=== PATIENT | female | born 1940 | race Two or more races ===

== ENCOUNTER 2020-03-22 08:42 | Emergency (ER) | payer OTHER ==
[~2020-03-22] VITALS: Ht 152.4 cm; Wt 72.6 kg
[2020-03-22 08:46] VITALS: BP 165/65
== END 2020-03-22 11:29 | disposition home or self-care (01) ==
LOC: EDBD 08:42 → ER 08:42
DX: R51.9 Headache, unspecified (principal); M54.2 Cervicalgia; I10 Essential (primary) hypertension
CPT/HCPCS: 70450; 72125; 93005

== ENCOUNTER 2021-01-03 16:44 | Emergency (ER) | payer OTHER ==
[~2021-01-03] VITALS: Ht 167.6 cm; Wt 79.4 kg
[2021-01-03] MEDS ORDERED: EPINEPHrine HCL 1 MG/1 ML AMP IM ONE (19:15)
[2021-01-03] MEDS ORDERED: methylPREDNISolone SOD SUCC 125 MG/2 ML VL IV ONE (19:15)
[2021-01-04 01:04] VITALS: BP 150/53
== END 2021-01-04 01:05 | disposition home or self-care (01) ==
LOC: EDBD 16:44 → ER 16:44
DX: T78.09XA Anaphylactic reaction due to other food products, initial encounter (principal); I10 Essential (primary) hypertension; E11.9 Type 2 diabetes mellitus without complications; J45.909 Unspecified asthma, uncomplicated; I25.2 Old myocardial infarction; Z88.5 Allergy status to narcotic agent; Z98.890 Other specified postprocedural states
CPT/HCPCS: 96372; 96374; 99284; J0171; J2930

== ENCOUNTER 2021-12-02 17:19 | Emergency (ER) | payer OTHER ==
[~2021-12-02] VITALS: Ht 149.9 cm; Wt 108.9 kg
[2021-12-02] MEDS ORDERED: methylPREDNISolone SOD SUCC 125 MG/2 ML VL IV ONE (19:00)
[2021-12-02] MEDS ORDERED: cefTRIAXone 1GM/50ML D5W 50 ML IV ONE (19:00)
[2021-12-02 19:42] LABS: Basophils # (auto) 0.1 10 ^3/uL (0-0.2); Eosinophils # (auto) 0.5 10 ^3/uL (0-0.8); Eosinophils % (auto) 6.1 % (0.0-7.0); Hematocrit 39.9 % (36.0-46.0); Hemoglobin 13.2 g/dL (12.2-16.2); Lymphocytes % (auto) 26.4 % (10.0-50.0); Mean Corpuscular Hemoglobin 33.3 pg (28.0-32.0); Monocytes # (auto) 0.6 10 ^3/uL (0-1.3); Monocytes % (auto) 8.1 % (0.0-12.0); Neutrophils # (auto) 4.5 10 ^3/uL (1.6-8.6); Neutrophils % (auto) 58.4 % (37.0-80.0); Nucleated Red Blood Cells % 0.1 %; Red Blood Cells 3.95 10^6/uL (4.0-5.20); Red Cell Distribution Width 13.5 % (11.8-14.3); White Blood Cell 7.7 10^3/uL (4.4-10.8)
[2021-12-02 19:57] LABS: Albumin 3.5 g/dL (3.4-5.0); Calcium 9.3 mg/dL (8.5-10.1); Potassium 4.4 mmol/L (3.5-5.1)
[2021-12-02 19:59] LABS: BUN/Creatinine Ratio 14.3
[2021-12-02 20:03] LABS: Bilirubin, Total 0.3 mg/dL (0.2-1.0); Total Protein 7.3 g/dL (6.4-8.2)
[2021-12-02] MEDS ORDERED: METH4PAK PO (21:44)
[2021-12-02] MEDS ORDERED: cefTRIAXone SOD 1,000 MG VL IM ONE (22:00)
[2021-12-02 22:02] VITALS: BP 129/81
== END 2021-12-02 22:36 | disposition home or self-care (01) ==
LOC: ER 17:19
DX: J20.9 Acute bronchitis, unspecified (principal); I10 Essential (primary) hypertension; I25.2 Old myocardial infarction; J45.909 Unspecified asthma, uncomplicated; E11.9 Type 2 diabetes mellitus without complications; E03.9 Hypothyroidism, unspecified; Z90.49 Acquired absence of other specified parts of digestive tract; Z88.8 Allergy status to other drugs, medicaments and biological substances; Z20.822 Contact with and (suspected) exposure to COVID-19
CPT/HCPCS: 36415; 71045; 80053; 83605; 83880; 84484; 85025; 85379; 87040; 87426; 93005; 96372; 96374; 99285; J0696; J2930

== ENCOUNTER 2024-07-26 23:54 | Inpatient (IN) | payer OTHER ==
[~2024-07-26] VITALS: Ht 154.9 cm; Wt 99.0 kg
[~2024-07-26 23:54] MED LIST: METH4PAK PO
[2024-07-26 23:58] VITALS: PULSE 138; RESP 18; O2SAT 100
[2024-07-26] MEDS ORDERED: NOREPINEPHRINE 8 MG/250ML KIT 250 ML IV ONE (23:58)
[2024-07-27] VITALS (80 sets, daily range): BP systolic 113–149; BP diastolic 42–82; PULSE 53–112; RESP 13–22; TEMP 98.2–100.4; O2SAT 95–100
[2024-07-27] MEDS: NOREPINEPHRINE 8 MG/250ML KIT 250 ML IV SCH
[2024-07-27 00:24] LABS: Hemoglobin 13.2 g/dL (12.2-16.2); Mean Corpuscular Hemoglobin 33.6 pg (28.0-32.0); Mean Corpuscular Hgb Conc. 32.2 g/dL (32.0-36.0); Mean Corpuscular Volume 104.4 fL (80.0-100.0); Platelet Count (auto) 262 10^3/uL (140-450); Red Blood Cells 3.93 10^6/uL (4.0-5.20); Red Cell Distribution Width 14.1 % (11.8-14.3); White Blood Cell 7.7 10^3/uL (4.4-10.8)
[2024-07-27 00:27] LABS: Basophils % (manual) 0 (0.0-2.0); Blast Cells 0; Metamyelocytes % 0; Myelocytes % 0; Promyelocytes % 0
--- NOTE | 2024-07-27 00:27 | ED.PDOC ---
CPR-HPI HPI Comments 83-year-old female came to ER via EMS in cardio respiratory arrest. Per EMS, patient was picked up at home. Patient was going to the bathroom where she collapsed. Paramedics were called. Down time 5 minutes. Patient unresponsive with agonal breathing CPR initiated immediately. Chest compressions done, IO fluids were given, epinephrine x2, and intubated as paramedics enter the ER. Total downtime 15 minutes Chief Complaint: CPR Time Seen by MD: 00:24 Primary Care Provider: ARABELLA Spring Notes: Nurses Notes Allergies: Coded Allergies: Codeine (Verified Allergy, Severe, 03/22/20) Oxycodone (Verified Allergy, Severe, 03/22/20) Home Meds Active Scripts Methylprednisolone (Medrol Dosepak) 4 Mg Miguelito, 4 MG PO UD, #21 TAB UAD Prov:FORTINO BROWNING MD 12/02/21 Information Source: Emergency Med Personnel Mode of Arrival: EMS Timing: Minutes Duration: Down time prior EMS: (5 minutes), Total time prior hopital: (15 minutes) Onset: Witnessed Available Hx: Unknown Inital rhythm: PEA Treatment: CPR, Intubation, IV, Epinephrine Response: Sustained return of pulse Associated signs and symptoms: Other (Syncope) Past Medical History PAST MEDICAL HISTORY: Unobtainable Surgical History: Unobtainable 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: Unobtainable Family History Family History: Unobtainable Social History Smoker: Unobtainable Alcohol: Unobtainable Drugs: Unobtainable Lives In: Home Unable to Obtain due to: Medical Urgency, Intubated Physical Exam General Appearance: Other (CPR in progress) HEENT: Other (Pupils fixed and dilated) Neck: Normal Inspection Respiratory: Other (Clear breath sounds bilaterally, patient intubated) Cardiovascular: Other (CPR in progress) Breast Exam: Normal Gastrointestinal: No Organomegaly Genitalia: Normal Pelvic: Deferred Rectal: Deferred Extremities: No pedal edema Neurologic: Other (Patient intubated unresponsive.) Cerebellar Function: Unable to Test Reflexes: NOT DONE Skin: Other (Mottled) Lymphatic: NOT DONE Was a procedure done? Was a procedure done?: Yes Sedation Sedation?: No Intubation Indication: Respiratory Insufficiency Prep: Preoxygenation Pretreated with: Analgesia Medicated with: Nothing Intubation Approach: Orotracheal Intubation size: cm (8.0) Informed consent obtained: No Risks/benefits/alt described: No Differential Dx CPR Differential Diagnosis: Cardiopulmonary arrest, Dysrhythmia, Myocardial Infarction, Pulmonary Embolus, Respiratory Failure X-Ray, Labs, Meds, VS Vital Signs Date Time Temp Pulse Resp B/P (MAP) Pulse Ox O2 Delivery O2 Flow Rate FiO2 07/27/24 02:00 118/61 07/27/24 01:45 114/65 07/27/24 01:30 116/63 07/27/24 01:30 116/63 07/27/24 01:15 109/58 07/27/24 01:02 136/70 07/27/24 01:00 136/70 07/27/24 01:00 142/61 07/27/24 00:45 142/83 07/27/24 00:30 88/53 07/27/24 00:15 91/40 07/27/24 00:11 94 22 146/73 (97) 100 100 07/27/24 00:05 98.9 0 0 0/0 (0) 0 07/27/24 00:00 146/73 07/27/24 00:00 137 07/26/24 23:59 75 07/26/24 23:58 138 18 100 Mechanical Ventilator+ 100 100 Lab Test 07/27/24 02:52 07/27/24 02:35 07/27/24 02:00 07/27/24 01:47 Range/Units Troponin I High Sensitivity Pending 72 *H </=34 ng/L Blood Gas Specimen Type Arterial Blood Gas Sample Site Arterial line Blood Gas Patient Temperature 37.0 Arterial Blood Date Drawn [id number] Arterial Blood pH 7.301 L 7.350-7.450 Arterial Blood Partial Pressure CO2 38.9 32.0-45.0 mmHg Arterial Blood Partial Pressure O2 385.5 *H 83.0-108.0 mmHg Arterial Blood HCO3 18.8 L 21.0-28.0 mmol/L Arterial Blood Oxygen Saturation 99.2 H 94.0-98.0 % Arterial Blood Base Excess -7.1 L -2.0-3.0 mmol/L Arterial Blood Oxyhemoglobin 98.6 H 94.0-98.0 % Arterial Blood Carboxyhemoglobin 0.6 0.5-1.5 % Arterial Blood Methemoglobin 0.0 0.0-1.5 % Ranulfo Test N/a Blood Gas Total Hemoglobin 14.40 12.0-16.0 g/dL Blood Gas Set Respiration Rate 20.0 Blood Gas Modality Vent - ac FiO2 % 100.0 Blood Gas Tidal Volume 400.0 Blood Gas PEEP or CPAP 5.0 Blood Gas Critical Value Read Back Yes Blood Gas Notified Whom Md annamarie coy Blood Gas Notified Time [id number] Blood Gas Notified By Electrical/Instrument Technician yang cox Lactic Acid Level 3.9 *H 0.4-2.0 mmol/L Test 07/26/24 23:55 Range/Units White Blood Count 7.7 4.4-10.8 10^3/uL Red Blood Count 3.93 L 4.0-5.20 10^6/uL Hemoglobin 13.2 12.2-16.2 g/dL Hematocrit 41.0 36.0-46.0 % Mean Corpuscular Volume 104.4 H 80.0-100.0 fL Mean Corpuscular Hemoglobin 33.6 H 28.0-32.0 pg Mean Corpuscular Hemoglobin Concent 32.2 32.0-36.0 g/dL Red Cell Distribution Width 14.1 11.8-14.3 % Platelet Count 262 140-450 10^3/uL Mean Platelet Volume 7.2 6.9-10.8 fL Neutrophils (%) (Auto) 37.0-80.0 % Lymphocytes (%) (Auto) 10.0-50.0 % Monocytes (%) (Auto) 0.0-12.0 % Basophils (%) (Auto) 0.0-2.0 % Neutrophils # (Auto) 1.6-8.6 10 ^3/uL Lymphocytes # (Auto) 0.4-5.4 10 ^3/uL Monocytes # (Auto) 0-1.3 10 ^3/uL Differential Total Cells Counted 100.0 100 Neutrophils % (Manual) 19 L 37.0-80.0 Band Neutrophils % (Manual) 4 Lymphocytes % (Manual) 71 H 10.0-50.0 Monocytes % (Manual) 3 0-12 Eosinophils % (Manual) 1 0-7 Basophils % (Manual) 0 0.0-2.0 Metamyelocytes % (manual) 0 Myelocytes % (Manual) 0 Promyelocytes % (Manual) 0 Blast Cells % (Manual) 0 Reactive Lymphocytes 2 Platelet Estimate Adequate Sodium Level 143 136-145 mmol/L Potassium Level 3.7 3.5-5.1 mmol/L Chloride Level 107 98-107 mmol/L Carbon Dioxide Level 19 L 20-31 mmol/L Anion Gap 17 H 5-15 Blood Urea Nitrogen 15 9-23 mg/dL Creatinine 1.09 H 0.550-1.02 mg/dL Glomerular Filtration Rate Calc 51 >90 mL/min BUN/Creatinine Ratio 13.8 10.0-20.0 Serum Glucose 260 H 74-106 mg/dL Lactic Acid Level 11.6 *H 0.4-2.0 mmol/L Calcium Level 14.3 *H 8.7-10.4 mg/dL Total Bilirubin < 0.2 L 0.2-1.0 mg/dL Aspartate Amino Transferase (AST) 57 H 13-40 U/L Alanine Aminotransferase (ALT) 34 7-40 U/L Alkaline Phosphatase 67 46-116 U/L Troponin I High Sensitivity 16 </=34 ng/L B-Type Natriuretic Peptide 36.56 0-100 pg/mL Total Protein 5.8 5.7-8.2 g/dL Albumin 3.6 3.2-4.8 g/dL Lipase 54 H 12-53 U/L Current Medications Medications (Trade) Dose Ordered Sig/Yovanny Route Start Time Stop Time Status Last Admin Norepinephrine Bitartrate 250 ml @ 3.75 mls/hr Q24H IV 07/27/24 00:00 07/27/24 00:00 Midazolam HCl 50 ml @ 1 mls/hr Q24H IV 07/27/24 01:00 07/27/24 01:00 Fentanyl Citrate 250 ml @ 2.5 mls/hr Q24H IV 07/27/24 01:00 07/27/24 01:02 Time of 1ST Reevaluation: 00:20 Reevaluation 1ST: Unchanged Patient Education/Counseling: Pt Unresponsive Family Education/Counseling: No Family Present Departure 1 Departure Time of Disposition: 03:16 (Patient presented as a cardiac arrest. After 1 round of that being calcium we and she had fluoroscopy. Exchange patient's ET tube for any toe. Patient had a central line placed arterial line placed. Workup is pending patient will be admitted to the ICU.) Impression: Primary Impression: Cardiac arrest Additional Impression: Acute respiratory failure Qualified Codes: J96.01 - Acute respiratory failure with hypoxia Disposition: ADMITTED INPATIENT Admit to: ICU Condition: Critical Critical Care Note Critical Care Time?: Yes (35 min-critical care time only) Critical care comment: Status post cardiac arrest 165 minutes Heart Score Heart Score: Heart Score Response (Comments) Value History Moderate Suspicious 1 EKG Repolarization Disturb 1 Age >65 2 Risk Factors 1 or 2 risk factors 1 Troponin 1-2 x's Normal limit 1 Total 6 Stability Stability form required: No I personally scribed for DAYNA COY MD ([email or web address]) on 07/27/24 at 00:27. Electronically submitted by Kit Benedict ([facility] [place], [place]). DAYNA COY MD Jul 27, 2024 00:27
[2024-07-27 00:31] LABS: Alanine Aminotransferase 34 U/L (7-40); Albumin 3.6 g/dL (3.2-4.8); Alkaline Phosphatase 67 U/L (46-116); Anion Gap 17 (5-15); BUN/Creatinine Ratio 13.8 (10.0-20.0); Blood Urea Nitrogen 15 mg/dL (9-23); Potassium 3.7 mmol/L (3.5-5.1); Sodium 143 mmol/L (136-145); Total Protein 5.8 g/dL (5.7-8.2)
[2024-07-27 00:36] LABS: Lactic Acid w/Reflex 11.6 mmol/L (0.4-2.0)
[2024-07-27 00:37] LABS: Aspartate Aminotransferase 57 U/L (13-40); Bilirubin, Total < 0.2 mg/dL (0.2-1.0); Calcium 14.3 mg/dL (8.7-10.4); Carbon Dioxide 19 mmol/L (20-31); Chloride 107 mmol/L (98-107); Glucose 260 mg/dL (74-106); Lipase 54 U/L (12-53)
[2024-07-27] MEDS: fentaNYL Drip 2500mCg/250mlNS 250 ML IV ONE (00:58)
[2024-07-27] MEDS: MIDAZOLAM DRIP 50 mg/50mL 50 ML IV ONE (00:58)
[2024-07-27] MEDS: MIDAZOLAM DRIP 50 mg/50mL 50 ML IV SCH (01:00)
[2024-07-27] MEDS: fentaNYL Drip 2500mCg/250mlNS 250 ML IV SCH (01:02)
--- NOTE | 2024-07-27 01:03 | DVH ---
CHEST RADIOGRAPH Indication: cardiac arrest Technique: Single frontal view of the chest was obtained COMPARISON: CHEST PORTABLE on DOS: 12/02/21, CXRP on DOS: 12/02/21 FINDINGS: Lines and Tubes: Left IJ central venous catheter projecting over SV Lungs: No pulmonary edema. Elevation of right hemidiaphragm with subsegmental atelectasis at right edward ng base. Left lung is well inflated and clear. Pleura: No effusion. No pneumothorax. Cardiomediastinal contours: Unremarkable Bones: Unremarkable IMPRESSION: Elevation of right hemidiaphragm with subsegmental atelectasis at right lung base.
[2024-07-27 01:09] LABS: Band Neutrophils % (manual) 4; Eosinophils % (manual) 1 (0-7); Lymphocytes % (manual) 71 (10.0-50.0); Monocytes % (manual) 3 (0-12); Platelet Estimate Adequate; Reactive Lymphocytes 2
--- NOTE | 2024-07-27 02:33 | DVHNC2 ---
Arterial Puncture Indication: Assess acid-base status Procedure: Arterial Punct Obtained Location: Left Femoral Informed consent obtained: No Risks/benefits/alt described: No Central Line Recorder of insertion practice: Traveling Construction Superintendent Occupation of carbon rod inserter: Attending Physician (Dr Arechiga), Physician Line Out Worker (DR Malathi Blackwood ) Indication: Hypotension Room prepared for procedure: Yes Traveling Construction Superintendent performed hand hygien: Yes Maximal sterile barrier precau: Mask/Eye shield, Sterile gown, Cap, Sterlie gloves, Large sterlie drape Skin Preparation: Chlorhexidine gluconate Skin preparation completely dr: Yes Insertion site: Left, Internal jugular Central line catheter type: Itc-qteyhoga-afl dialysis Number of lumens: 3 Central line exchanged over a: No Antiseptic ointment applied to: No Post Assessment: Chest X-Ray, No Pneumothorax Informed consent obtained: No Date of Service: Jul 27, 2024 Billing Provider: DAYNA ARECHIGA MD Common Visit Codes: 47096-[id number] INP/OBS CARE(HIGH) Procedure Codes: 74830-[id number] NON-TUNNEL CV CATH, [id number] LINE VIRAJ SERRA RESIDENT Jul 27, 2024 02:33
[2024-07-27 03:05] LABS: Base Excess -7.1 mmol/L (-2.0-3.0)
--- NOTE | 2024-07-27 04:04 | RESUS ---
CODE BLUE ASSESSSMENT History of Events History of Events: Pt BIBA w/ CPR in progress via autopulse. Per EMS pt was using restroom when she collapsed. Patient unresponsive with agonal breathing CPR initiated immediately via EMS. IO established Left proximal tib and left proximal humerous, epi x 3 rounds given with no response. Approx down time 20min. Initial Information Date: Jul 26, 2024 Time: 23:50 Location of Arrest: In Field Arrest Witnessed: Yes CPR started by whom: EMS Pre-Hospital Care: ACLS Type of arrest: Cardiac, Respiratory, Adult, Witnessed Spontaneous Respirations: No Pulse Present: No Monitoring: ECG, Pulse Oximetry, Telemetry Airway Ventilation Breathing at Onset: Assisted Oxygen Delivery Method: Ambu-Bag Time of first Assisted Ventila: 23:50 Artificial Ventilation: Bag/Endo tube Intubation Time: 23:48 Intubation Size: 7.0 cuffed Intubated by: EMS/Paramedics Intubation Attempts: 1 Intubated orally: Yes Intubated Nasaly: No Tube secured at: 25 (CM @ Lip) Cricoid pressure done: Yes CO2 indicator used: Yes Confirmation: Auscultation, Exhaled CO2 Comments: Dr. Arechiga re-intubated patient @ 0003 with 8.0 ETT 24cm @ lip Circulation Circulation #1: Time: 23:50 Pulse Rate (adult): 0 (0) Blood Pressure Systolic: 0 Blood Pressure Diastolic: 0 Temperature (Fahrenheit): 98.9 (F- Rectal) Circulation #2: Time: 23:54 Pulse Rate (adult): 131 Blood Pressure Systolic: 185 Blood Pressure Diastolic: 152 Circulation Comment: ROSC Procedure - IV Procedure - IV : IV start time: 23:53 IV Side: Right IV Location: Forearm Anterior IV Catheter Type: Saline Lock IV Placed: In Hospital IV Placed by Olamide Francisco RN IV Gauge: 20 IV Line Care: Saline Flush Medications & Response Medications and Responses #1: Medication Time: 23:52 ADULT Medications Given ADULT: Epinephrine 1 mg Route of Administration: IO Heart Rate: 0 Blood Pressure Systolic: 0 Blood Pressure Diastolic: 0 Respiratory Rate: 0 O2 Sat by Pulse Oximetry: 0 Medications and Responses #2: Medication Time: 23:54 ADULT Medications Given ADULT: Sodium Bacarbinate 50 meq Route of Administration: IV Heart Rate: 131 EKG Rhythm: Sinus Tachycardia Blood Pressure Systolic: 185 Blood Pressure Diastolic: 152 EKG Rhythm: Sinus Tachycardia Nurses Notes [place] Coma Scale Eye Opening: None (1) John Coma Scale Verbal: None (1) John Coma Scale Motor: None (1) [place] Total: 3 Pupil Reaction: Non Reactive Bedside Blood Glucose: 205 EKG Rhythm: Sinus Rhythm (@ 75 HR 2359) Time Code Ended Time Code Ended: 23:54 Post Arrest Status: Ventilated Outcome of code: Successful Code Team Present: Dr. Hawk LLANOS MD; Olamide Francisco RN- ER Charge; Ewa Hua RN - HS; Diamond Puckett RN - HS; Risa Tena RT; Flores Grace RN; Bessy Tena RN; Vipul Verdin ER ; Josue Tena ER T Post Resuscitation Neurologica Pupil Size: 6 Comment: Fixed, non reactive ROSC Time of ROSC: 23:54 Pt Meets Criteria for Therapeu: Yes DIAMOND CASTELLON Jul 27, 2024 04:03
--- NOTE | 2024-07-27 04:09 | DVH ---
CLINICAL INDICATION: r/o dislocation TECHNIQUE: AP and lateral views of the left humerus were performed. XY L HUMERUS XRAY Comparison: None FINDINGS/IMPRESSION: : 1. No acute fracture of the left humerus. 2. Acromioclavicular hypertrophy with high-riding humeral head abutting the undersurface of the acro mion and distal clavicle consistent with significant rotator cuff tendinopathy.
--- NOTE | 2024-07-27 04:13 | DVH ---
EXAM: XY CHEST XRAY 1 VIEW HISTORY: OGT PLACEMENT CONFIRMATION COMPARISON: XY CHEST PORTABLE on DOS: 07/27/24, CHEST PORTABLE on DOS: 12/02/21, CXRP on DOS: 12/02/21 TECHNIQUE: Portable AP view of the chest was performed. FINDINGS: Endotracheal tube is re-identified with its tip 1.5 cm above the juliana. OG tube and left IJ central line are in good position. There is extensive right chest wall subcutaneous emphysema without definit e visualized right pneumothorax. No new consolidative infiltrates or pulmonary edema. There is mild elevation of the right hemidiaphragm, stable The heart is not enlarged. The central pulmonary arterie s may be ectatic. IMPRESSION: 1. Mechanical ventilation with tubes and lines as above. 2. Extensive right chest wall subcutaneous emphysema without visualization pneumothorax or right rib fracture. Recommend short interval follow-up upright chest x-ray to re-evaluate for possible pneumoth orax.
--- NOTE | 2024-07-27 04:16 | DVH ---
EXAM: XY CHEST XRAY 1 VIEW HISTORY: verify og placement COMPARISON: XY CHEST PORTABLE on DOS: 07/27/24, CHEST PORTABLE on DOS: 12/02/21, CXRP on DOS: 12/02/21 TECHNIQUE: Portable AP view of the chest was performed. FINDINGS: Endotracheal tube is re-identified with its tip 1.2 cm above the juliana. OG tube tip is in the gastr ic antral region. Left IJ central line is re-identified. There is extensive right chest wall subcutan eous emphysema without visualization pneumothorax. There is a right 6th rib fracture laterally, rita ng unknown. The heart is not enlarged. There is mild elevation of the right hemidiaphragm, stable. IMPRESSION: 1. Mechanical ventilation with tubes and lines as above. 2. Extensive right chest wall subcutaneous emphysema without visualized pneumothorax. There is a righ t 6th rib fracture, timing unknown.
--- NOTE | 2024-07-27 04:20 | DVH ---
CLINICAL INDICATION: r/o dislocation TECHNIQUE: XY R HUMERUS XRAY Comparison: None FINDINGS/IMPRESSION: : 1. No acute fracture of the right humerus. 2. Acromioclavicular hypertrophy with high-riding humeral head which abuts the undersurface of the ac romion, consistent with significant rotator cuff tendinopathy. 3. Extensive right chest wall subcutaneous emphysema.
--- NOTE | 2024-07-27 05:19 | DVHHPRES ---
History of Present Illness Resident Creating Document: VIRAJ SERRA RESIDENT Reason for Visit: CARDIAC ARREST History of Present Illness 83-year-old female found collapsed in the bathroom at home at approximately 11 p.m. Witness (Daughter) reports she was going to the bathroom when she heard a scream for help and suddenly the patient lost consciousness. Paramedics arrived and noted the patient was unresponsive with agonal breathing. Initial downtime was 5 minutes prior to EMS arrival, with a total downtime of 15 minutes. The patient was intubated, received two doses of epinephrine, and was placed on a YONATAN device for automated chest compressions during transport to the ER. Past Medical History: Hypertension Congestive Heart Failure Myocardial Infarction (2013) Degenerative Bone Disease Foot Neuropathy Past Surgical History: Gastric Bypass Three Sections Hernia Repair Cervical Surgery Medications: Metoprolol Aspirin Hydrochlorothiazide Tramadol Tylenol Stool softeners Allergies: Oxycodone Codeine Review of Systems Constitutional: No: Fever, Chills, Sweats, Weakness, Malaise, Other Eyes: No: Pain, Vision change, Conjunctivae inflammation, Eyelid inflammation, Other, Redness ENT: No: Ear pain, Ear discharge, Nose pain, Nose discharge, Nose congestion, Mouth pain, Mouth swelling, Throat pain, Throat swelling, Other Respiratory: No: Cough, Dry, Shortness of breath, SOB with excertion, Wheezing, Hemoptysis, Pleuritic Pain, Sputum, Wheezing, Other Gastrointestinal: No: Nausea, Vomiting, Abdominal Pain, Diarrhea, Constipation, Melena, Hematochezia, Other Genitourinary: No Dysuria, No Frequency, No Incontinence, No Hematuria, No Retention, No Other Skin: No: Rash, Lesions, Jaundice, Bruising, Other Neurological: No: Weakness, Numbness, Incoordination, Change in speech, Confusion, Seizures, Other Allergies: Coded Allergies: Codeine (Verified Allergy, Severe, 03/22/20) Oxycodone (Verified Allergy, Severe, 03/22/20) Medications Current Medications Medications Dose Ordered Sig/Yovanny Route Start Time Stop Time Status Last Admin Dose Admin Norepinephrine Bitartrate 250 ml @ 3.75 mls/hr Q24H IV 07/27/24 00:00 07/27/24 00:00 3.75 MLS/HR Midazolam HCl 50 ml @ 1 mls/hr Q24H IV 07/27/24 01:00 07/27/24 01:00 1 MLS/HR Fentanyl Citrate 250 ml @ 2.5 mls/hr Q24H IV 07/27/24 01:00 07/27/24 01:02 2.5 MLS/HR Piperacillin Sod/ Tazobactam Sod 100 ml @ 100 mls/hr Q6HR IV 07/27/24 05:15 Pantoprazole Sodium 40 mg DAILY IV 07/27/24 10:00 UNV Enoxaparin Sodium 90 mg DAILY SC 07/27/24 10:00 UNV Exam Vital Signs Vital Signs Date Time Temp Pulse Resp B/P (MAP) Pulse Ox O2 Delivery O2 Flow Rate FiO2 07/27/24 04:24 79 20 134/64 (87) 100 40 07/27/24 04:19 98.9 98.9 07/27/24 04:03 Ambu-Bag General Appearance: Other (intubated, ETT) HEENT: Other (pupils dilated fixed ) Respiratory: Clear to auscultation, Other (subcutaneous emphysema right) Cardiovascular: Regular rate, Normal S1, Normal S2 Abdominal: Other (N/A ) Extremities: No edema Skin: No rashes, No breakdown Neuro: Other (RASS -3) Labs/Xrays Labs Test 07/27/24 04:59 07/27/24 02:52 07/27/24 02:35 07/27/24 02:00 Range/Units Blood Gas Specimen Type Arterial Blood Gas Sample Site Arterial line Blood Gas Patient Temperature 37.0 Arterial Blood Date Drawn [id number] Arterial Blood pH 7.301 L 7.350-7.450 Arterial Blood Partial Pressure CO2 38.9 32.0-45.0 mmHg Arterial Blood Partial Pressure O2 385.5 *H 83.0-108.0 mmHg Arterial Blood HCO3 18.8 L 21.0-28.0 mmol/L Arterial Blood Oxygen Saturation 99.2 H 94.0-98.0 % Arterial Blood Base Excess -7.1 L -2.0-3.0 mmol/L Arterial Blood Oxyhemoglobin 98.6 H 94.0-98.0 % Arterial Blood Carboxyhemoglobin 0.6 0.5-1.5 % Arterial Blood Methemoglobin 0.0 0.0-1.5 % Ranulfo Test N/a Blood Gas Total Hemoglobin 14.40 12.0-16.0 g/dL Blood Gas Set Respiration Rate 20.0 Blood Gas Modality Vent - ac FiO2 % 100.0 Blood Gas Tidal Volume 400.0 Blood Gas PEEP or CPAP 5.0 Blood Gas Critical Value Read Back Yes Blood Gas Notified Whom Md annamarie coy Blood Gas Notified Time [id number] Blood Gas Notified By Plaster Machine Operator yang cox Lactic Acid Level 3.9 *H 0.4-2.0 mmol/L Test 07/27/24 00:10 07/26/24 23:55 Range/Units White Blood Count 7.7 4.4-10.8 10^3/uL Red Blood Count 3.93 L 4.0-5.20 10^6/uL Hemoglobin 13.2 12.2-16.2 g/dL Hematocrit 41.0 36.0-46.0 % Mean Corpuscular Volume 104.4 H 80.0-100.0 fL Mean Corpuscular Hemoglobin 33.6 H 28.0-32.0 pg Mean Corpuscular Hemoglobin Concent 32.2 32.0-36.0 g/dL Red Cell Distribution Width 14.1 11.8-14.3 % Platelet Count 262 140-450 10^3/uL Mean Platelet Volume 7.2 6.9-10.8 fL Neutrophils (%) (Auto) 37.0-80.0 % Lymphocytes (%) (Auto) 10.0-50.0 % Monocytes (%) (Auto) 0.0-12.0 % Basophils (%) (Auto) 0.0-2.0 % Neutrophils # (Auto) 1.6-8.6 10 ^3/uL Lymphocytes # (Auto) 0.4-5.4 10 ^3/uL Monocytes # (Auto) 0-1.3 10 ^3/uL Differential Total Cells Counted 100.0 100 Neutrophils % (Manual) 19 L 37.0-80.0 Band Neutrophils % (Manual) 4 Lymphocytes % (Manual) 71 H 10.0-50.0 Monocytes % (Manual) 3 0-12 Eosinophils % (Manual) 1 0-7 Basophils % (Manual) 0 0.0-2.0 Metamyelocytes % (manual) 0 Myelocytes % (Manual) 0 Promyelocytes % (Manual) 0 Blast Cells % (Manual) 0 Reactive Lymphocytes 2 Platelet Estimate Adequate B-Type Natriuretic Peptide 36.56 0-100 pg/mL Lipase 54 H 12-53 U/L Assessment/Plan Assessment/Plan Neurological: #Acute hypoxic encephalopathy due to cardiac arrest #S/P Cardiac arrest CPR for 15 min Pupils fixed Head CT scan Mild chronic ischemic changes without evidence of acute intracranial process. Mild upper cervical spinal canal stenosis Neurology consult RASS -3 Versed Fentanyl Neurologic prognosis is very poor Cardiovascular: #Cardiac/Septic shock #S/P Cardiac arrest: AEP CPR for 15 min #H/o CAD #H/o CHF Need of 2 doses of epinephrine before ROSC, bicarbonate also given Levophed 6 mcg/min Troponins trending high Cardiology consult EKG sinus rhythm no ST elevation, repeat EKG ECHO pending Cardiology consult ordered Pulmonary #Acute hypoxic respiratory failure due to cardiac arrest #s/p intubation #Multiple right rib fractures #Right subcutaneous emphysema due to fractures #Probably aspiration pneumonia VENT settings: TV 400 PEEP 5 Fio2 40 RR 20 ABG post intubation: metabolic acidosis pCo2 38.9 pO2 385 Fio2 100% Pending new gases and new chest x ray x ray showed tube 1.5 above the juliana Zosyn IV GI Hold on feedings for now Protonix IV Renal #PATTI s/p cardiac arrest Levophed 6 mcg/min #Hypercalcemia f/u new CMP #Lactic acidosis Endocrinology A1c and TSH ordered Lines Left IJV central line 07/27/2024 Left femoral arterial line 07/27/[address] Baron Time spent on critical care 71 min Full code, Case discussed with the daughter by phone about the poor prognosis and critical state Plan discussed with: Patient, Other (rn) My Orders Orders - VIRAJ SERRA RESIDENT Procedure Category Date Status Time Admit ADMIT 07/27/24 Transmitted 04:32 Electrocardigram EKG 07/27/24 Logged 04:32 Troponin-I Hs LAB 07/27/24 In Process 04:32 Thyroid Stimulating LAB 07/27/24 In Process Hormone 04:32 Communication Order ORDERS 07/27/24 Transmitted 04:32 Drug Screen LAB 07/27/24 Logged 04:32 * Cardiology Consult CONS 07/27/24 Transmitted 04:48 * Neurology Consult CONS 07/27/24 Transmitted 04:48 Covid19 Antigen Jacey LAB 07/27/24 Logged Rapid Influenza A&B LAB 07/27/24 Logged 04:48 D-Dimer LAB 07/27/24 In Process 04:48 Magnesium LAB 07/27/24 In Process 05:01 Echo 2d Mode Cardiac US 07/27/24 Logged DOP 05:01 PTPTT LAB 07/27/24 In Process 05:01 Piperacillin-Tazob PHA 07/27/24 In Process 3.375gm (Zosyn 3.375g 05:15 Complete Blood Count LAB 07/27/24 Logged 05:08 Comprehensive LAB 07/27/24 In Process Metabolic Panel 05:08 Abg W/ Co-Ox RT 07/27/24 Logged 05:08 Pantoprazole PHA 07/27/24 In Process (Protonix) 10:00 Enoxaparin Sodium PHA 07/27/24 Logged (Lovenox) 10:00 Date of Service: Jul 27, 2024 Billing Provider: DOLORES BARON MD Common Visit Codes: [id number] CARE 30-74 MIN VIRAJ SERRA RESIDENT Jul 27, 2024 05:19 DOLORES BARON MD Jul 29, 2024 16:33
--- NOTE | 2024-07-27 05:28 | DVH ---
EXAM: CT HEAD WITHOUT CONTRAST HISTORY: cardiac arrest COMPARISON: HEAD WITHOUT CONTRAST on DOS: 03/22/20 TECHNIQUE: Noncontrast axial CT images of the head were performed. Sagittal and coronal reformatted images were obtained. This CT exam was performed using 1 or more of the following dose reduction techniques: Au tomated exposure control, adjustment of the mA and/or kv according to patient size, or the use of ite rative reconstruction techniques. Radiation Dose : Head: CT Dose: CTDI volume is 59.01 mGy. Dose-length product is 1161.07 mGy*cm FINDINGS: There is mild decreased attenuation in the periventricular white matter. No intracranial hemorrhage, mass, midline shift, hydrocephalus, or evidence of acute large vessel infarct. There are postoperativ e changes of bilateral cataract extraction surgery. The paranasal sinuses are clear. The bilateral m astoid air cells and middle ear spaces are clear. No cranial fracture or scalp edema. The AP dimensi on of the spinal canal measures 8 mm at the C1 level. IMPRESSION: 1. Mild chronic ischemic changes without evidence of acute intracranial process. 2. Mild upper cervical spinal canal stenosis. Consider follow-up noncontrast MRI of the cervical spin e on an outpatient nonemergent basis once the patient's acute condition has resolved.
[2024-07-27 05:37] LABS: Alkaline Phosphatase 66 U/L (46-116); Anion Gap 11 (5-15); BUN/Creatinine Ratio 16.1 (10.0-20.0); Blood Urea Nitrogen 22 mg/dL (9-23); Calcium 10.2 mg/dL (8.7-10.4); Carbon Dioxide 21 mmol/L (20-31); Potassium 4.1 mmol/L (3.5-5.1); Sodium 140 mmol/L (136-145); Total Protein 6.5 g/dL (5.7-8.2)
[2024-07-27 05:40] LABS: Alanine Aminotransferase 53 U/L (7-40); Aspartate Aminotransferase 120 U/L (13-40); Bilirubin, Total 0.3 mg/dL (0.2-1.0); Chloride 108 mmol/L (98-107); Glucose 183 mg/dL (74-106)
[2024-07-27] MEDS: PIPERACILLIN-TAZOB 3.375GM 100 ML IV SCH (05:44)
[2024-07-27 05:49] LABS: INR 1.07 (0.9-1.15); Prothrombin Time 11.3 sec (9.3-11.8)
[2024-07-27 05:50] LABS: Hematocrit 42.2 % (36.0-46.0); Hemoglobin 13.8 g/dL (12.2-16.2); Mean Corpuscular Hemoglobin 33.2 pg (28.0-32.0); Mean Corpuscular Hgb Conc. 32.7 g/dL (32.0-36.0); Mean Corpuscular Volume 101.5 fL (80.0-100.0); Platelet Count (auto) 295 10^3/uL (140-450); Red Blood Cells 4.16 10^6/uL (4.0-5.20); Red Cell Distribution Width 13.5 % (11.8-14.3); White Blood Cell 20.1 10^3/uL (4.4-10.8)
[2024-07-27 05:55] LABS: Basophils % (manual) 0 (0.0-2.0); Blast Cells 0; Eosinophils % (manual) 0 (0-7); Metamyelocytes % 0; Myelocytes % 0; Promyelocytes % 0; Reactive Lymphocytes 0
[2024-07-27 06:03] LABS: Base Excess -7.8 mmol/L (-2.0-3.0)
[2024-07-27 06:26] LABS: COVID19 ANTIGEN SOFIA FIA NEGATIVE (NEGATIVE); Rapid Influenza A Negative (Negative); Rapid Influenza B Negative (Negative)
[2024-07-27 06:35] LABS: Band Neutrophils % (manual) 10; Lymphocytes % (manual) 4 (10.0-50.0); Monocytes % (manual) 7 (0-12)
[2024-07-27 06:36] LABS: Platelet Estimate Adequate
[2024-07-27] MEDS: SODIUM CHLORIDE 0.9% 1,000 ML IV SCH (07:00)
--- NOTE | 2024-07-27 07:59 | DVH ---
EXAM: XR Chest, 1 View CLINICAL INDICATION: rule out pneumothorax TECHNIQUE: Frontal view of the chest. COMPARISON: XY CHEST XRAY 1 VIEW on DOS: 07/27/24, XY CHEST XRAY 1 VIEW on DOS: 07/27/24, XY CHEST PO RTABLE on DOS: 07/27/24, CHEST PORTABLE on DOS: 12/02/21, CXRP on DOS: 12/02/21 FINDINGS: LUNGS AND PLEURAL SPACES: Right side chest wall soft tissue emphysema. Possible small tiny right ap ical pneumothorax. Mild pulmonary congestion. HEART: Unremarkable. No cardiomegaly. MEDIASTINUM: Unremarkable. Normal mediastinal contour. BONES/JOINTS: Unremarkable. No acute fracture. TUBES, LINES AND DEVICES: ETT with the distal tip at the juliana. Retraction may be beneficial. Wendy gonzalez internal jugular central venous catheter tip in the superior vena cava. UPPER ABDOMEN: Nick stomach. OTHER FINDINGS: . None. . .. IMPRESSION: 1. Right side chest wall soft tissue emphysema. Possible small tiny right apical pneumothorax. 2. ETT with the distal tip at the juliana. Retraction may be beneficial. 3. Mild pulmonary congestion.
--- NOTE | 2024-07-27 08:49 | DVH ---
EXAM: US Duplex Bilateral Lower Extremities Veins CLINICAL INDICATION: rule out dvt TECHNIQUE: Real-time duplex ultrasound scan of the bilateral lower extremity veins integrating B-mod e two-dimensional vascular structure, Doppler spectral analysis, color flow Doppler imaging and compr ession. COMPARISON: None FINDINGS: RIGHT DEEP VEINS: Unremarkable. No DVT in the right common femoral, femoral, proximal deep femoral or popliteal veins. The veins demonstrate normal color flow, are normally compressible, with normal phasic flow and/or augmentation response. RIGHT SUPERFICIAL VEINS: Unremarkable. No thrombus in the visualized right great saphenous vein. LEFT DEEP VEINS: Unremarkable. No DVT in the left common femoral, femoral, proximal deep femoral o r popliteal veins. The veins demonstrate normal color flow, are normally compressible, with normal p hasic flow and/or augmentation response. LEFT SUPERFICIAL VEINS: Unremarkable. No thrombus in the visualized left great saphenous vein. SOFT TISSUES: No acute findings. No popliteal cyst. OTHER FINDINGS: . None. . . .. IMPRESSION: No DVT.
[2024-07-27] MEDS: ENOXAPARIN SOD 100 MG/1 ML SYRINGE SC SCH (10:21)
[2024-07-27] MEDS: PANTOPRAZOLE 40 MG/10 ML VIAL INJ IV SCH (10:21)
--- NOTE | 2024-07-27 12:02 | DVHINCON2 ---
DELMI PETERS [facility] 07/27/24 1202: Date Seen: Jul 27, 2024 Referring Physician MD Jaison Reason for Consultation Cardiac arrest, history of CAD History of Present Illness This 83-year-old female presents in the ED via EMS status post CPR. The patient is currently intubated, medical history obtained from record and daughter Norma. Patient's daughter states that as patient was going to the bathroom yelled for help and passed out leading daughter to call 911. Upon arrival of EMS the patient was unresponsive with agonal breathing for which CPR was initiated by EMS. The patient was given three rounds of epinephrine with Rosc. Estimated downtime of 20 minutes. Daughter states that the patient was complaining of left-sided weakness for the past two weeks. Denies chest pain, shortness of breath or other acute symptoms. Daughter does not recall the last time the patient was seen by her National Service Officer in [place]. Past medical history of CAD, asthma, CHF, neuropathy, gastric bypass. Past Medical History As stated in HPI Past Surgical History Gastric bypass Family History Reviewed, non-contributory to the management of this case. Social History The patient lives at home, denies smoking, alcohol or illicit drugs abuse. Allergies: Coded Allergies: Codeine (Verified Allergy, Severe, 03/22/20) Oxycodone (Verified Allergy, Severe, 03/22/20) Home Meds Active Scripts Methylprednisolone (Medrol Dosepak) 4 Mg Miguelito, 4 MG PO UD, #21 TAB UAD Prov:FORTINO BROWNING MD 12/02/21 Current Medications Current Medications Medications (Trade) Dose Ordered Sig/Yovanny Route PRN Reason Start Time Stop Time Status Last Admin Norepinephrine Bitartrate 250 ml @ 3.75 mls/hr Q24H IV 07/27/24 00:00 07/27/24 00:00 Midazolam HCl 50 ml @ 1 mls/hr Q24H IV 07/27/24 01:00 07/27/24 06:41 Fentanyl Citrate 250 ml @ 2.5 mls/hr Q24H IV 07/27/24 01:00 07/27/24 01:02 Piperacillin Sod/ Tazobactam Sod 100 ml @ 100 mls/hr Q6HR IV 07/27/24 05:15 07/27/24 05:44 Pantoprazole Sodium (Protonix) 40 mg DAILY IV 07/27/24 10:00 07/27/24 10:21 Enoxaparin Sodium (Lovenox) 90 mg DAILY SC 07/27/24 10:00 07/27/24 10:21 Sodium Chloride 1,000 ml @ 100 mls/hr Q10H IV 07/27/24 07:00 07/27/24 07:00 Review of Systems ROS see HPI Vital Signs Vital Signs Date Time Temp Pulse Resp B/P (MAP) Pulse Ox O2 Delivery O2 Flow Rate FiO2 07/27/24 10:05 74 20 140/62 (88) 99 30 07/27/24 09:15 98.4 98.4 07/27/24 04:03 Ambu-Bag Physical Exam INITIAL VITAL SIGNS: Reviewed by me GENERAL: Sedated HEAD: Head is normocephalic and atraumatic. EYES: Pupils fixed ENT: Moist mucous membranes. NECK: Supple, No masses, Full range of motion. RESPIRATORY: Intubated CV: Regular rate and rhythm. No edema GI/: Active bowel sounds, soft, nondistended, nontender. Indwelling urinary catheter INTEGUMENTARY: Warm and dry. No obvious rashes. NEUROLOGIC: Sedated Labs/Diagnostic Data Labs Test 07/27/24 07:46 07/27/24 05:59 07/27/24 05:43 07/27/24 04:59 Range/Units POC Glucose 157 H 70-106 mg/dl Blood Gas Specimen Type Arterial Blood Gas Sample Site Arterial line Blood Gas Patient Temperature 37.0 Arterial Blood Date Drawn [id number] Arterial Blood pH 7.345 L 7.350-7.450 Arterial Blood Partial Pressure CO2 31.2 L 32.0-45.0 mmHg Arterial Blood Partial Pressure O2 115.0 H 83.0-108.0 mmHg Arterial Blood HCO3 16.6 L 21.0-28.0 mmol/L Arterial Blood Oxygen Saturation 97.6 94.0-98.0 % Arterial Blood Base Excess -7.8 L -2.0-3.0 mmol/L Arterial Blood Oxyhemoglobin 96.3 94.0-98.0 % Arterial Blood Carboxyhemoglobin 1.0 0.5-1.5 % Arterial Blood Methemoglobin 0.3 0.0-1.5 % Ranulfo Test N/a Blood Gas Total Hemoglobin 13.80 12.0-16.0 g/dL Blood Gas Set Respiration Rate 20.0 Blood Gas Modality Vent - ac FiO2 % 40.0 Blood Gas Tidal Volume 400.0 Blood Gas PEEP or CPAP 5.0 Influenza Type A Antigen Negative Negative Influenza Type B Antigen Negative Negative SARS-CoV-2 Antigen (Rapid) Negative NEGATIVE White Blood Count 20.1 #H 4.4-10.8 10^3/uL Red Blood Count 4.16 4.0-5.20 10^6/uL Hemoglobin 13.8 12.2-16.2 g/dL Hematocrit 42.2 36.0-46.0 % Mean Corpuscular Volume 101.5 H 80.0-100.0 fL Mean Corpuscular Hemoglobin 33.2 H 28.0-32.0 pg Mean Corpuscular Hemoglobin Concent 32.7 32.0-36.0 g/dL Red Cell Distribution Width 13.5 11.8-14.3 % Platelet Count 295 140-450 10^3/uL Mean Platelet Volume 7.5 6.9-10.8 fL Neutrophils (%) (Auto) 37.0-80.0 % Lymphocytes (%) (Auto) 10.0-50.0 % Monocytes (%) (Auto) 0.0-12.0 % Basophils (%) (Auto) 0.0-2.0 % Neutrophils # (Auto) 1.6-8.6 10 ^3/uL Lymphocytes # (Auto) 0.4-5.4 10 ^3/uL Monocytes # (Auto) 0-1.3 10 ^3/uL Differential Total Cells Counted 100.0 100 Neutrophils % (Manual) 79 37.0-80.0 Band Neutrophils % (Manual) 10 Lymphocytes % (Manual) 4 L 10.0-50.0 Monocytes % (Manual) 7 0-12 Eosinophils % (Manual) 0 0-7 Basophils % (Manual) 0 0.0-2.0 Metamyelocytes % (manual) 0 Myelocytes % (Manual) 0 Promyelocytes % (Manual) 0 Blast Cells % (Manual) 0 Reactive Lymphocytes 0 Platelet Estimate Adequate Prothrombin Time 11.3 9.3-11.8 sec Prothrombin Time INR 1.07 0.9-1.15 Activated Partial Thromboplast Time 26.0 24.5-34.5 SEC D-Dimer, Quantitative > 35.20 H 0.0-0.49 mg/L FEU Sodium Level 140 136-145 mmol/L Potassium Level 4.1 3.5-5.1 mmol/L Chloride Level 108 H 98-107 mmol/L Carbon Dioxide Level 21 20-31 mmol/L Anion Gap 11 5-15 Blood Urea Nitrogen 22 9-23 mg/dL Creatinine 1.37 H 0.550-1.02 mg/dL Glomerular Filtration Rate Calc 39 >90 mL/min BUN/Creatinine Ratio 16.1 10.0-20.0 Serum Glucose 183 H 74-106 mg/dL Hemoglobin A1c 5.4 <5.7 % A1C Calcium Level 10.2 # 8.7-10.4 mg/dL Magnesium Level 1.8 1.6-2.6 mg/dL Total Bilirubin 0.3 0.2-1.0 mg/dL Aspartate Amino Transferase (AST) 120 H 13-40 U/L Alanine Aminotransferase (ALT) 53 H 7-40 U/L Alkaline Phosphatase 66 46-116 U/L Troponin I High Sensitivity 107 *H </=34 ng/L Total Protein 6.5 5.7-8.2 g/dL Albumin 4.0 3.2-4.8 g/dL Test 07/27/24 02:52 07/27/24 02:35 07/27/24 02:00 07/27/24 00:10 Range/Units Thyroid Stimulating Hormone (TSH) 1.57 0.55-4.78 uIU/mL Blood Gas Critical Value Read Back Yes Blood Gas Notified Whom Md annamarie coy Blood Gas Notified Time [id number] Blood Gas Notified By Underwriting Analyst yang cox Lactic Acid Level 3.9 *H 0.4-2.0 mmol/L Test 07/26/24 23:55 Range/Units B-Type Natriuretic Peptide 36.56 0-100 pg/mL Lipase 54 H 12-53 U/L Assessment CPR with ROSC Sepsis, Cardiogenic shock Acute on chronic respiratory failure NSTEMI likely type 2 due to above Elevated D-dimer- Rule ot PE DVT, ruled out Obesity PATTI on CKD h/o CAD h/o CHF Plan/Recommendation Discussed case with Dr. Kaufman and we recommend to following: Echocardiogram Titrate vasopressors to keep systolic BP > 90mmhg Continue with therapeutic Lovenox Serial troponin levels and electrocardiograms Vq scan ABX therapy per primary care team Elevation of troponin likely secondary to sepsis. 12 lead EKG with no evidence of acute ischemic. Recommend medical management. V/Q scan to rule out PE. Thank you for allowing us to participate in this patient's care. Please call if you have any questions or concerns. This medical document was created using an electronic medical record system with [employer] system. Although this document has been carefully reviewed, there might still be some phonetic and typographical errors. These areas are purely typographical due to imperfections of the software programs, and do not reflect any compromise in the patient's medical care. Plan discussed with: Patient, Other Plan discussed with: Patient, Daughter NYHA Physical activity limitations: NA Date of Service: Jul 27, 2024 Billing Provider: SHIRA WALLS MD Cardiology Common Codes: NOT BILLABLE Cardiology Consultation Codes: 61621-[id number] CONSULT <60MIN SHIRA WALLS MD 07/27/24 1337: Allergies: Coded Allergies: Codeine (Verified Allergy, Severe, 03/22/20) Oxycodone (Verified Allergy, Severe, 03/22/20) Home Meds Active Scripts Methylprednisolone (Medrol Dosepak) 4 Mg Miguelito, 4 MG PO UD, #21 TAB UAD Prov:FORTINO BROWNING MD 12/02/21 Plan/Recommendation PATIENT SEEN WITH RN LACTATE VERY HIGH, ANURIC MULTIORGAN FAILURE, CPR 20 MIN DOWN TIME SEVERE CHF ON ECHO WITH RV DYSFUNCTION START IV LASIX PRESSOR SUPPORT VERY POOR PROGNOSIS 40 MINS CRITICAL CARE TIME SPENT Plan discussed with: Other (rn) DELMI PETERS AUTHORIZATION REPRESENTATIVE Jul 27, 2024 12:02 SHIRA WALLS MD Jul 27, 2024 13:37
[2024-07-27 12:15] LABS: Cholesterol 153 mg/dL (< 200); LDL Cholesterol 94 mg/dL (< 100)
[2024-07-27 12:26] LABS: Triglycerides 174 mg/dL (< 150)
[2024-07-27 12:32] LABS: HDL Cholesterol 46 mg/dL (40-59)
--- NOTE | 2024-07-27 13:24 | DVHSR ---
APPROVED REPORT EXAM: Two-dimensional and M-mode echocardiogram with Doppler and color Doppler. Blood Pressure: 137/63 mmHg INDICATION Dizziness and Vertigo Cardiac Arrest RISK FACTORS Height: 5' 2", Weight: 198 DIMENSIONS LVDd2.9 (3.8-5.7cm)LA (2D)3.8 (1.9-4.0cm)Aortic Root3.1 (2.0-3.7cm) LVDs2.6 (2.5-4.0cm)LA (MM) (1.9-4.0cm)Aortic Cusp Exc1.3 (1.5-2.0cm) EF (%) 20.0 (55-70%)Rt. Atrium3.8 (1.9-4.0cm)Asc. Aorta cm IVSd1.3 (0.7-1.1cm)RV (D) (1.8-2.4cm) PWd1.3 (0.7-1.1cm) Mitral Valve MitralMitral Stenosis E wave0.50m/sMV Mean GR.mmHg A wave0.90m/sMV Peak GR.mmHg E/A ratio0.62D MVAcm2 Aortic Valve Aortic ValveAortic Stenosis V10.70m/Reta Mean GR.2mmHg V21.00m/Reta Peak GR.5mmHg LVOT Diameter2.2 (1.8-2.4cm)Doppler AVA2.66cm2 Tricuspid Valve TR Velocity3.20m/s [id number] Other Information Quality : Technically LimitedRhythm : Technically limited study due to patient s/p CPR with broken ribs. Conclusion lvef 25% severe dysfunction global LV dilated RV markedly dilated with mild dysfunction left atrium enlarged moderate pulm htn valves not well seen
[2024-07-27] MEDS ORDERED: CALCIUM CHLOR(10%) 100MG/ML 10ML SYRINGE IV ONE (13:26)
--- NOTE | 2024-07-27 13:43 | DVHINCON2 ---
Date of service: Jul 27, [address] coy Reason for Consultation vent management History of Present Illness pt is an 83 yo female, h/o gastric bypass for morbid obesity, HTN, collapsed in the bathroom and required CPR, at least 15 min. Pt intubated, brought in to the ER. hemodynamically unstable, on pressors.off sedation minimal reflexes. initial abg 7.3/39/385 on ac volume control 20/500/peep 5 100%. CXR shows congestion, subcutaneous emphysema on the right, ?pneumomediastinum Allergies: Coded Allergies: Codeine (Verified Allergy, Severe, 03/22/20) Oxycodone (Verified Allergy, Severe, 03/22/20) Home Meds Active Scripts Methylprednisolone (Medrol Dosepak) 4 Mg Miguelito, 4 MG PO UD, #21 TAB UAD Prov:FORTINO BROWNING MD 12/02/21 Current Medications Current Medications Medications (Trade) Dose Ordered Sig/Yovanny Route PRN Reason Start Time Stop Time Status Last Admin Norepinephrine Bitartrate 250 ml @ 3.75 mls/hr Q24H IV 07/27/24 00:00 07/27/24 00:00 Midazolam HCl 50 ml @ 1 mls/hr Q24H IV 07/27/24 01:00 07/27/24 13:17 Fentanyl Citrate 250 ml @ 2.5 mls/hr Q24H IV 07/27/24 01:00 07/27/24 01:02 Piperacillin Sod/ Tazobactam Sod 100 ml @ 100 mls/hr Q6HR IV 07/27/24 05:15 07/27/24 12:44 Pantoprazole Sodium (Protonix) 40 mg DAILY IV 07/27/24 10:00 07/27/24 10:21 Enoxaparin Sodium (Lovenox) 90 mg DAILY SC 07/27/24 10:00 07/27/24 10:21 Sodium Chloride 1,000 ml @ 100 mls/hr Q10H IV 07/27/24 07:00 07/27/24 07:00 Review of Systems unable to perform due to patient being intubated and sedated Vital Signs Vital Signs Date Time Temp Pulse Resp B/P (MAP) Pulse Ox O2 Delivery O2 Flow Rate FiO2 07/27/24 13:17 144/57 07/27/24 12:45 98.6 77 20 99 98.6 07/27/24 12:04 30 07/27/24 11:52 Mechanical Ventilator+ Labs/Diagnostic Data Labs Test 07/27/24 07:46 07/27/24 05:59 07/27/24 05:43 07/27/24 04:59 Range/Units POC Glucose 157 H 70-106 mg/dl Blood Gas Specimen Type Arterial Blood Gas Sample Site Arterial line Blood Gas Patient Temperature 37.0 Arterial Blood Date Drawn [id number] Arterial Blood pH 7.345 L 7.350-7.450 Arterial Blood Partial Pressure CO2 31.2 L 32.0-45.0 mmHg Arterial Blood Partial Pressure O2 115.0 H 83.0-108.0 mmHg Arterial Blood HCO3 16.6 L 21.0-28.0 mmol/L Arterial Blood Oxygen Saturation 97.6 94.0-98.0 % Arterial Blood Base Excess -7.8 L -2.0-3.0 mmol/L Arterial Blood Oxyhemoglobin 96.3 94.0-98.0 % Arterial Blood Carboxyhemoglobin 1.0 0.5-1.5 % Arterial Blood Methemoglobin 0.3 0.0-1.5 % Ranulfo Test N/a Blood Gas Total Hemoglobin 13.80 12.0-16.0 g/dL Blood Gas Set Respiration Rate 20.0 Blood Gas Modality Vent - ac FiO2 % 40.0 Blood Gas Tidal Volume 400.0 Blood Gas PEEP or CPAP 5.0 Influenza Type A Antigen Negative Negative Influenza Type B Antigen Negative Negative SARS-CoV-2 Antigen (Rapid) Negative NEGATIVE White Blood Count 20.1 #H 4.4-10.8 10^3/uL Red Blood Count 4.16 4.0-5.20 10^6/uL Hemoglobin 13.8 12.2-16.2 g/dL Hematocrit 42.2 36.0-46.0 % Mean Corpuscular Volume 101.5 H 80.0-100.0 fL Mean Corpuscular Hemoglobin 33.2 H 28.0-32.0 pg Mean Corpuscular Hemoglobin Concent 32.7 32.0-36.0 g/dL Red Cell Distribution Width 13.5 11.8-14.3 % Platelet Count 295 140-450 10^3/uL Mean Platelet Volume 7.5 6.9-10.8 fL Neutrophils (%) (Auto) 37.0-80.0 % Lymphocytes (%) (Auto) 10.0-50.0 % Monocytes (%) (Auto) 0.0-12.0 % Basophils (%) (Auto) 0.0-2.0 % Neutrophils # (Auto) 1.6-8.6 10 ^3/uL Lymphocytes # (Auto) 0.4-5.4 10 ^3/uL Monocytes # (Auto) 0-1.3 10 ^3/uL Differential Total Cells Counted 100.0 100 Neutrophils % (Manual) 79 37.0-80.0 Band Neutrophils % (Manual) 10 Lymphocytes % (Manual) 4 L 10.0-50.0 Monocytes % (Manual) 7 0-12 Eosinophils % (Manual) 0 0-7 Basophils % (Manual) 0 0.0-2.0 Metamyelocytes % (manual) 0 Myelocytes % (Manual) 0 Promyelocytes % (Manual) 0 Blast Cells % (Manual) 0 Reactive Lymphocytes 0 Platelet Estimate Adequate Prothrombin Time 11.3 9.3-11.8 sec Prothrombin Time INR 1.07 0.9-1.15 Activated Partial Thromboplast Time 26.0 24.5-34.5 SEC D-Dimer, Quantitative > 35.20 H 0.0-0.49 mg/L FEU Sodium Level 140 136-145 mmol/L Potassium Level 4.1 3.5-5.1 mmol/L Chloride Level 108 H 98-107 mmol/L Carbon Dioxide Level 21 20-31 mmol/L Anion Gap 11 5-15 Blood Urea Nitrogen 22 9-23 mg/dL Creatinine 1.37 H 0.550-1.02 mg/dL Glomerular Filtration Rate Calc 39 >90 mL/min BUN/Creatinine Ratio 16.1 10.0-20.0 Serum Glucose 183 H 74-106 mg/dL Hemoglobin A1c 5.4 <5.7 % A1C Calcium Level 10.2 # 8.7-10.4 mg/dL Magnesium Level 1.8 1.6-2.6 mg/dL Total Bilirubin 0.3 0.2-1.0 mg/dL Aspartate Amino Transferase (AST) 120 H 13-40 U/L Alanine Aminotransferase (ALT) 53 H 7-40 U/L Alkaline Phosphatase 66 46-116 U/L Troponin I High Sensitivity 107 *H </=34 ng/L Total Protein 6.5 5.7-8.2 g/dL Albumin 4.0 3.2-4.8 g/dL Triglycerides Level 174 H < 150 mg/dL Cholesterol Level 153 < 200 mg/dL LDL Cholesterol 94 < 100 mg/dL HDL Cholesterol 46 40-59 mg/dL Thyroid Stimulating Hormone (TSH) 1.21 0.55-4.78 uIU/mL Test 07/27/24 02:35 07/27/24 02:00 07/27/24 00:10 07/26/24 23:55 Range/Units Blood Gas Critical Value Read Back Yes Blood Gas Notified Whom Md annamarie coy Blood Gas Notified Time [id number] Blood Gas Notified By Box Office Attendant yang cox Lactic Acid Level 3.9 *H 0.4-2.0 mmol/L B-Type Natriuretic Peptide 36.56 0-100 pg/mL Lipase 54 H 12-53 U/L Plan/Recommendation acute hypoxemic resp failure s/p cardiac arrest PATTI pneumomediastinum labs and imaging st reviewed plan sedation off no reflexes vent changes made pressure control for synchrony titrate peep and fi02 to sats above 90% monitor troponins/echo pending pressors as needed MAP above 65 prognosis poor crit care time 35 min Plan discussed with: Other (Rn) GABRIELA MARTINEZ MD Jul 27, 2024 13:43
--- NOTE | 2024-07-27 14:08 | DVHPN2 ---
Subjective 83-year-old female with a history of coronary artery disease, heart failure, history of HI in 2013, hypertension was brought to the emergency room after she collapsed at home. She was nonresponsive and CPR was done, downtime estimated at 15-20 minutes She is currently intubated and sedated She is sedated with Versed and fentanyl She is on Levophed drip and IV fluids She was found to have a 6 right rib fracture and right-sided subcutaneous emphysema Creatinine 1.0 went up to 1.3 Changes from previous H/P or p: Changes Eyes: No Pain, No Vision change, No Conjunctivae inflammation, No Eyelid inflammation, No Other, No Redness ENT: No Ear pain, No Ear discharge, No Nose pain, No Nose discharge, No Nose congestion, No Mouth pain, No Mouth swelling, No Throat pain, No Throat swelling, No Other Respiratory: No Cough, No Dry, No Shortness of breath, No SOB with excertion, No Wheezing, No Hemoptysis, No Pleuritic Pain, No Sputum, No Other Gastrointestinal: No Nausea, No Vomiting, No Abdominal Pain, No Diarrhea, No Constipation, No Melena, No Hematochezia, No Other Genitourinary: No Dysuria, No Frequency, No Incontinence, No Hematuria, No Retention, No Other Skin: No Rash, No Lesions, No Jaundice, No Bruising, No Other Objective Vitals Vital Signs Date Time Temp Pulse Resp B/P (MAP) Pulse Ox O2 Delivery O2 Flow Rate FiO2 07/27/24 13:17 144/57 07/27/24 12:45 98.6 77 20 99 98.6 07/27/24 12:04 30 07/27/24 11:52 Mechanical Ventilator+ Intake/Output Intake and Output 07/27/24 07:00 Intake Total 100 ml Balance 100 ml Intake IV Total 100 ml General Appearance: Other (Intubated and sedated) Lungs: Other (Bilateral rhonchi) Cardiovascular: Regular rate, Normal S1 Abdomen: Normal bowel sounds, Soft Extremities: No edema Medications Current Medications Medications Dose Ordered Sig/Yovanny Route Start Time Stop Time Status Last Admin Dose Admin Norepinephrine Bitartrate 250 ml @ 3.75 mls/hr Q24H IV 07/27/24 00:00 07/27/24 00:00 3.75 MLS/HR Midazolam HCl 50 ml @ 1 mls/hr Q24H IV 07/27/24 01:00 07/27/24 13:17 7 MLS/HR Fentanyl Citrate 250 ml @ 2.5 mls/hr Q24H IV 07/27/24 01:00 07/27/24 01:02 2.5 MLS/HR Piperacillin Sod/ Tazobactam Sod 100 ml @ 100 mls/hr Q6HR IV 07/27/24 05:15 07/27/24 12:44 100 MLS/HR Pantoprazole Sodium 40 mg DAILY IV 07/27/24 10:00 07/27/24 10:21 40 MG Enoxaparin Sodium 90 mg DAILY SC 07/27/24 10:00 07/27/24 10:21 90 MG Sodium Chloride 1,000 ml @ 100 mls/hr Q10H IV 07/27/24 07:00 07/27/24 07:00 100 MLS/HR Laboratory Results Laboratory Tests 07/27/24 04:59 Chemistry Test 07/26/24 23:55 07/27/24 04:59 Albumin 3.6 g/dL (3.2-4.8) 4.0 g/dL (3.2-4.8) Calcium Level 14.3 mg/dL (8.7-10.4) *H 10.2 mg/dL (8.7-10.4) # Total Protein 5.8 g/dL (5.7-8.2) 6.5 g/dL (5.7-8.2) Magnesium Level 1.8 mg/dL (1.6-2.6) Coagulation Test 07/27/24 04:59 Prothrombin Time 11.3 sec (9.3-11.8) Prothrombin Time INR 1.07 (0.9-1.15) Activated Partial Thromboplast Time 26.0 SEC (24.5-34.5) D-Dimer, Quantitative > 35.20 mg/L FEU (0.0-0.49) Lipid panel Test 07/26/24 23:55 07/27/24 04:59 Lipase 54 U/L (12-53) H Cholesterol Level 153 mg/dL (< 200) HDL Cholesterol 46 mg/dL (40-59) Triglycerides Level 174 mg/dL (< 150) H Cardiac Markers Test 07/26/24 23:55 B-Type Natriuretic Peptide 36.56 pg/mL (0-100) LFT Test 07/26/24 23:55 07/27/24 04:59 Alanine Aminotransferase (ALT) 34 U/L (7-40) 53 U/L (7-40) H Alkaline Phosphatase 67 U/L (46-116) 66 U/L (46-116) Aspartate Amino Transferase (AST) 57 U/L (13-40) H 120 U/L (13-40) H Total Bilirubin < 0.2 mg/dL (0.2-1.0) L 0.3 mg/dL (0.2-1.0) HgA1c, TSH Test 07/27/24 02:52 07/27/24 04:59 Thyroid Stimulating Hormone (TSH) 1.57 uIU/mL (0.55-4.78) 1.21 uIU/mL (0.55-4.78) Hemoglobin A1c 5.4 % A1C (<5.7) Blood Gas Results Test 07/27/24 02:35 07/27/24 05:59 Arterial Blood pH 7.301 (7.350-7.450) 7.345 (7.350-7.450) FiO2 % 100.0 40.0 Assessment/Plan Assessment/Plan Acute cardiac arrest Status post CPR with ROSC Acute hypoxic respiratory failure Chronic respiratory failure History of heart failure Acute on chronic systolic heart failure Obesity Acute kidney injury mediated by hemodynamically etiology ?CKD History of CHF History of CAD Sepsis Leukocytosis due to sepsis Right 6th rib fracture Right subcutaneous emphysema Plan Mechanical ventilation Go down on Versed drip as tolerated Cardiology consult Echocardiogram shows ejection fraction 25% with severe dysfunction globally and left ventricle dilation and right ventricle markedly dilation with mild dysfunction Pulmonary consultation Start IV Lasix Broad-spectrum antibiotics Urine culture Blood culture Full code Discussed with her daughter over the phone Advance directives discussed for 20 minutes Not stable for transfer Plan discussed with: Patient Date of Service: Jul 27, 2024 Billing Provider: ABDOUL SOUSA MD Common Visit Codes: 36551-[id number] CARE 30-74 MIN Secondary Visit Codes: 59217-[id number] CARE PLAN 30 MINUTES ABDOUL SOUSA MD Jul 27, 2024 14:08
[2024-07-27] MEDS: FUROSEMIDE 40 MG/4 ML VIAL IV ONE (15:01)
[2024-07-27] MEDS: DOXYCYCLINE 100MG/100ML 100 ML IV SCH (16:30)
[2024-07-27] MEDS: FUROSEMIDE 40 MG/4 ML VIAL IV SCH (17:40)
[2024-07-27] MEDS: cefTRIAXone 1GM/50ML D5W 50 ML IV ONE (18:28)
--- NOTE | 2024-07-27 19:13 | DVHINCON2 ---
Date of service: Jul 27, [address] Blackwood Reason for Consultation Cardiac arrest, prolonged CPR History of Present Illness Ms. Cagle is a 83 years old female with a history of hypertension, coronary artery disease, heart attack, heart failure, kidney disease, the patient was brought to the [facility] on 07/26/2024 with a chief company of altered mental status, cataract arrest. At this time, the patient is intubated, sedated, nonresponsive to painful stimuli, the history is obtained from her daughter, her nurse and chart review At home, the patient became nonresponsive, collapsed at the entrance her bathroom, family did not/CPR as advised, and the EMS came over about 15-30 and she was found to have PEA VFib. The patient was resuscitated intubated in the [facility] ER She had brief passing out 5 times over the 10 years No history of stroke or seizure disorder [phone] CBC, 07/27/2024, metabolic acidosis, metabolic acidosis WBC/HB/PLT/MCV, 07/27/2024: 20.1/13.8/295/I 105 In/CR,///1.37 TBI/AST/ALT/AP, 07/29/2024: 0.3/120/23/26 TG/HDL/LDL/HDL, 07/27/24: 174/153/94/46 Venous Doppler, 08/01/2024: No DVT in the lower extremities CT head, 07/27/2024: 1. Mild chronic ischemic changes without evidence of acute intracranial process. 2. Mild upper cervical spinal canal stenosis. Consider follow-up noncontrast MRI of the cervical spine on an outpatient nonemergent basis once the patient's acute condition has resolved Past Medical History Hypertension, coronary artery disease, heart failure, heart attack, kidney disease Past Surgical History Gastric bypass, , hernia repair, C-spine surgery Family History: Patient reports no known family medical history. Family History Hypertension, diabetes, heart disease, cancer Social History She is not a tobacco smoker, she has no history of alcohol or recreational substance abuse Allergies: Coded Allergies: Codeine (Verified Allergy, Severe, 03/22/20) Oxycodone (Verified Allergy, Severe, 03/22/20) Home Meds Active Scripts Methylprednisolone (Medrol Dosepak) 4 Mg Miguelito, 4 MG PO UD, #21 TAB UAD Prov:FORTINO BROWNING MD 12/02/21 Current Medications Current Medications Medications (Trade) Dose Ordered Sig/Yovanny Route PRN Reason Start Time Stop Time Status Last Admin Norepinephrine Bitartrate 250 ml @ 3.75 mls/hr Q24H IV 07/27/24 00:00 07/27/24 00:00 Midazolam HCl 50 ml @ 1 mls/hr Q24H IV 07/27/24 01:00 07/27/24 13:17 Fentanyl Citrate 250 ml @ 2.5 mls/hr Q24H IV 07/27/24 01:00 07/27/24 01:02 Piperacillin Sod/ Tazobactam Sod 100 ml @ 100 mls/hr Q6HR IV 07/27/24 05:15 07/27/24 15:26 DC 07/27/24 12:44 Pantoprazole Sodium (Protonix) 40 mg DAILY IV 07/27/24 10:00 07/27/24 10:21 Enoxaparin Sodium (Lovenox) 90 mg DAILY SC 07/27/24 10:00 07/27/24 14:09 DC 07/27/24 10:21 Sodium Chloride 1,000 ml @ 100 mls/hr Q10H IV 07/27/24 07:00 07/27/24 17:37 Furosemide (Lasix Injection) 40 mg BIDD IV 07/27/24 18:00 07/27/24 17:40 Ceftriaxone Sodium 50 ml @ 100 mls/hr DAILY@09 IV 07/28/24 09:00 Doxycycline Hyclate 100 ml @ 50 mls/hr Q12H IV 07/27/24 14:15 07/27/24 16:30 Enoxaparin Sodium (Lovenox) 40 mg DAILY SC 07/28/24 10:00 Review of Systems As above, the other systems are negative Vital Signs Vital Signs Date Time Temp Pulse Resp B/P (MAP) Pulse Ox O2 Delivery O2 Flow Rate FiO2 07/27/24 18:30 99.7 84 19 132/50 (77) 97 211.5 129/58 (81) 07/27/24 18:00 30 07/27/24 18:00 Mechanical Ventilator+ Physical Exam The patient is well-nourished and well-developed with no distress. The patient is intubated HEENT: Normocephalic, neck supple, no carotid bruits Lungs: Clear to auscultation Cardiovascular: Regular rate and region, S1, S2, no murmurs Abdomen: Soft, nontender, normal bowel sounds MENTAL STATUS: Not responsive to the surroundings, CRANIAL NERVES: Pupils are equal, round and nonreactive, small. There are corneal reflexes and doll's eyes phenomenon. No signs of facial weakness. There are gagging or coughing reflexes SENSATION: No responses to pain stimuli. MOTOR: Normal tone in the upper and lower extremity. Normal muscle bulk. No fasciculations. No spontaneous movement. REFLEXES: Deep tendon reflexes are symmetrical. No pathological reflexes. CEREBELLAR/COORDINATION: Deferred GAIT/STATION: deferred. Labs/Diagnostic Data Labs Test 07/27/24 07:46 07/27/24 05:59 07/27/24 05:43 07/27/24 04:59 Range/Units POC Glucose 157 H 70-106 mg/dl Blood Gas Specimen Type Arterial Blood Gas Sample Site Arterial line Blood Gas Patient Temperature 37.0 Arterial Blood Date Drawn [id number] Arterial Blood pH 7.345 L 7.350-7.450 Arterial Blood Partial Pressure CO2 31.2 L 32.0-45.0 mmHg Arterial Blood Partial Pressure O2 115.0 H 83.0-108.0 mmHg Arterial Blood HCO3 16.6 L 21.0-28.0 mmol/L Arterial Blood Oxygen Saturation 97.6 94.0-98.0 % Arterial Blood Base Excess -7.8 L -2.0-3.0 mmol/L Arterial Blood Oxyhemoglobin 96.3 94.0-98.0 % Arterial Blood Carboxyhemoglobin 1.0 0.5-1.5 % Arterial Blood Methemoglobin 0.3 0.0-1.5 % Ranulfo Test N/a Blood Gas Total Hemoglobin 13.80 12.0-16.0 g/dL Blood Gas Set Respiration Rate 20.0 Blood Gas Modality Vent - ac FiO2 % 40.0 Blood Gas Tidal Volume 400.0 Blood Gas PEEP or CPAP 5.0 Influenza Type A Antigen Negative Negative Influenza Type B Antigen Negative Negative SARS-CoV-2 Antigen (Rapid) Negative NEGATIVE White Blood Count 20.1 #H 4.4-10.8 10^3/uL Red Blood Count 4.16 4.0-5.20 10^6/uL Hemoglobin 13.8 12.2-16.2 g/dL Hematocrit 42.2 36.0-46.0 % Mean Corpuscular Volume 101.5 H 80.0-100.0 fL Mean Corpuscular Hemoglobin 33.2 H 28.0-32.0 pg Mean Corpuscular Hemoglobin Concent 32.7 32.0-36.0 g/dL Red Cell Distribution Width 13.5 11.8-14.3 % Platelet Count 295 140-450 10^3/uL Mean Platelet Volume 7.5 6.9-10.8 fL Neutrophils (%) (Auto) 37.0-80.0 % Lymphocytes (%) (Auto) 10.0-50.0 % Monocytes (%) (Auto) 0.0-12.0 % Basophils (%) (Auto) 0.0-2.0 % Neutrophils # (Auto) 1.6-8.6 10 ^3/uL Lymphocytes # (Auto) 0.4-5.4 10 ^3/uL Monocytes # (Auto) 0-1.3 10 ^3/uL Differential Total Cells Counted 100.0 100 Neutrophils % (Manual) 79 37.0-80.0 Band Neutrophils % (Manual) 10 Lymphocytes % (Manual) 4 L 10.0-50.0 Monocytes % (Manual) 7 0-12 Eosinophils % (Manual) 0 0-7 Basophils % (Manual) 0 0.0-2.0 Metamyelocytes % (manual) 0 Myelocytes % (Manual) 0 Promyelocytes % (Manual) 0 Blast Cells % (Manual) 0 Reactive Lymphocytes 0 Platelet Estimate Adequate Prothrombin Time 11.3 9.3-11.8 sec Prothrombin Time INR 1.07 0.9-1.15 Activated Partial Thromboplast Time 26.0 24.5-34.5 SEC D-Dimer, Quantitative > 35.20 H 0.0-0.49 mg/L FEU Sodium Level 140 136-145 mmol/L Potassium Level 4.1 3.5-5.1 mmol/L Chloride Level 108 H 98-107 mmol/L Carbon Dioxide Level 21 20-31 mmol/L Anion Gap 11 5-15 Blood Urea Nitrogen 22 9-23 mg/dL Creatinine 1.37 H 0.550-1.02 mg/dL Glomerular Filtration Rate Calc 39 >90 mL/min BUN/Creatinine Ratio 16.1 10.0-20.0 Serum Glucose 183 H 74-106 mg/dL Hemoglobin A1c 5.4 <5.7 % A1C Calcium Level 10.2 # 8.7-10.4 mg/dL Magnesium Level 1.8 1.6-2.6 mg/dL Total Bilirubin 0.3 0.2-1.0 mg/dL Aspartate Amino Transferase (AST) 120 H 13-40 U/L Alanine Aminotransferase (ALT) 53 H 7-40 U/L Alkaline Phosphatase 66 46-116 U/L Troponin I High Sensitivity 107 *H </=34 ng/L Total Protein 6.5 5.7-8.2 g/dL Albumin 4.0 3.2-4.8 g/dL Triglycerides Level 174 H < 150 mg/dL Cholesterol Level 153 < 200 mg/dL LDL Cholesterol 94 < 100 mg/dL HDL Cholesterol 46 40-59 mg/dL Thyroid Stimulating Hormone (TSH) 1.21 0.55-4.78 uIU/mL Test 07/27/24 02:35 07/27/24 02:00 07/27/24 00:10 07/26/24 23:55 Range/Units Blood Gas Critical Value Read Back Yes Blood Gas Notified Whom Md annamarie coy Blood Gas Notified Time [id number] Blood Gas Notified By Clinical Trial Educator yang cox Lactic Acid Level 3.9 *H 0.4-2.0 mmol/L B-Type Natriuretic Peptide 36.56 0-100 pg/mL Lipase 54 H 12-53 U/L Assessment Cardiopulmonary arrest with prolonged downtime Coma Hypoxic encephalopathy Metabolic encephalopathy Acute respiratory failure Myoclonic in bilateral face, left hand secondary to cardiopulmonary arrest Plan/Recommendation Monitoring Supportive treatment ICU care EEG Follow-up CT brain scan Follow-up lab test EEG CT head ICU care Stabilize vitals/pressor drip Respiratory support/vent management Oxygen IV antibiotics Consider treat the myoclonus if indicated More recommendation per clinical course Prognosis: Guarded This medical document was created using an electronic medical record system with [employer] dictation system. Although this document has been carefully reviewed, there may still be some phonetic and typographical errors. These areas are purely typographical due to imperfections of the software programs, and do not reflect any compromise in the patient's medical care. Plan discussed with: Daughter, Other ELSA RESENDEZ MD Jul 27, 2024 19:13
[2024-07-28] VITALS (70 sets, daily range): BP systolic 92–147; BP diastolic 34–81; PULSE 113–148; RESP 11–29; TEMP 99.3–101.3; O2SAT 94–99
--- NOTE | 2024-07-28 05:36 | DVH ---
CHEST RADIOGRAPH Indication: vent Technique: Single frontal view of the chest was obtained Comparison: XY CHEST XRAY 1 VIEW on DOS: 07/27/24, XY CHEST XRAY 1 VIEW on DOS: 07/27/24, XY CHEST XRAY 1 VIEW on DOS: 07/27/24 IMPRESSION: Heart is stable in size. Support lines and tubes appear similar with endotracheal tube approximately 1.3 cm from the juliana, consider retraction by 1 cm. Subcutaneous emphysema in the right hemithorax with probable small left effusion. Probable small righ t effusion with bibasilar atelectasis.
[2024-07-28 05:53] LABS: Basophils # (auto) 0 10 ^3/uL (0-0.2); Eosinophils # (auto) 0.1 10 ^3/uL (0-0.8); Nucleated Red Blood Cells % 0.1 %
[2024-07-28 05:56] LABS: Basophils % (auto) 0.1 % (0.0-2.0); Eosinophils % (auto) 0.4 % (0.0-7.0); Hematocrit 39.9 % (36.0-46.0); Hemoglobin 13.1 g/dL (12.2-16.2); Lymphocytes # (auto) 1.2 10 ^3/uL (0.4-5.4); Lymphocytes % (auto) 5.7 % (10.0-50.0); Mean Corpuscular Hemoglobin 33.7 pg (28.0-32.0); Mean Corpuscular Hgb Conc. 32.8 g/dL (32.0-36.0); Mean Corpuscular Volume 102.8 fL (80.0-100.0); Monocytes % (auto) 8.9 % (0.0-12.0); Neutrophils # (auto) 18.7 10 ^3/uL (1.6-8.6); Neutrophils % (auto) 84.9 % (37.0-80.0); Platelet Count (auto) 212 10^3/uL (140-450); Red Blood Cells 3.88 10^6/uL (4.0-5.20); Red Cell Distribution Width 14.1 % (11.8-14.3); White Blood Cell 22.1 10^3/uL (4.4-10.8)
[2024-07-28 06:50] LABS: Base Excess -9.7 mmol/L (-2.0-3.0)
[2024-07-28 07:06] LABS: Albumin 3.3 g/dL (3.2-4.8); Alkaline Phosphatase 53 U/L (46-116); Anion Gap 18 (5-15); BUN/Creatinine Ratio 12.3 (10.0-20.0); Calcium 8.9 mg/dL (8.7-10.4); Potassium 4.8 mmol/L (3.5-5.1); Sodium 143 mmol/L (136-145); Total Protein 5.7 g/dL (5.7-8.2)
[2024-07-28 07:08] LABS: Alanine Aminotransferase 43 U/L (7-40); Aspartate Aminotransferase 91 U/L (13-40); Bilirubin, Total 0.2 mg/dL (0.2-1.0); Blood Urea Nitrogen 29 mg/dL (9-23); Carbon Dioxide 13 mmol/L (20-31); Chloride 112 mmol/L (98-107); Glucose 126 mg/dL (74-106); Magnesium 1.6 mg/dL (1.6-2.6)
[2024-07-28] MEDS: cefTRIAXone 1GM/50ML D5W 50 ML IV SCH (09:43)
[2024-07-28] MEDS: ENOXAPARIN SOD 100 MG/1 ML SYRINGE SC SCH (09:43)
[2024-07-28 10:24] LABS: INR 1.08 (0.9-1.15); Partial Thromboplastin Time 33.3 SEC (24.5-34.5); Prothrombin Time 11.4 sec (9.3-11.8)
--- NOTE | 2024-07-28 11:11 | DVHPN2 ---
Progress Note - Dictate Date Seen: Jul 28, 2024 Has the PT tested + for MRSA If YES, has PT been informed?: Yes Medical Necessity Reason Pt with a Central, PICC or Fol: Yes vital signs Vital Sign Date Time Temp Pulse Resp B/P (MAP) Pulse Ox O2 Delivery O2 Flow Rate FiO2 07/28/24 09:53 123 24 92/81 (85) 96 30 07/28/24 07:45 Mechanical Ventilator+ 07/28/24 07:00 100.6 213.1 Total Intake and Output 07/27/24 07/27/24 07/28/24 15:00 23:00 07:00 Intake Total 1033.5 ml 1032.00 ml 381.625 ml Output Total 45 ml 200 ml Balance 1033.5 ml 987.00 ml 181.625 ml medications Current Medications Medications Dose Ordered Sig/Yovanny Route Start Time Stop Time Status Last Admin Dose Admin Norepinephrine Bitartrate 250 ml @ 3.75 mls/hr Q24H IV 07/27/24 00:00 07/27/24 23:55 3.75 MLS/HR Midazolam HCl 50 ml @ 1 mls/hr Q24H IV 07/27/24 01:00 07/27/24 22:49 4 MLS/HR Fentanyl Citrate 250 ml @ 2.5 mls/hr Q24H IV 07/27/24 01:00 07/27/24 01:02 2.5 MLS/HR Pantoprazole Sodium 40 mg DAILY IV 07/27/24 10:00 07/28/24 09:43 40 MG Sodium Chloride 1,000 ml @ 100 mls/hr Q10H IV 07/27/24 07:00 07/28/24 03:14 100 MLS/HR Furosemide 40 mg BIDD IV 07/27/24 18:00 07/28/24 07:50 40 MG Ceftriaxone Sodium 50 ml @ 100 mls/hr DAILY@09 IV 07/28/24 09:00 07/28/24 09:43 100 MLS/HR Doxycycline Hyclate 100 ml @ 50 mls/hr Q12H IV 07/27/24 14:15 07/28/24 03:08 50 MLS/HR Enoxaparin Sodium 40 mg DAILY SC 07/28/24 10:00 07/28/24 09:43 40 MG Magnesium Sulfate/ Dextrose 100 ml @ 100 mls/hr Q1HR IV 07/28/24 10:00 07/28/24 11:59 laboratory and microbiology Laboratory Tests 07/28/24 05:40 Test 07/28/24 05:40 Range/Units Serum Glucose 126 H 74-106 mg/dL Assessment/Plan acute hypoxemic resp failure s/p cardiac arrest PATTI pneumomediastinum pt seen and examined in the ER labs and imaging st reviewed CXR persistent subcut emphysema probable pneumomediastinum following CPR plan minimal sedation pt moving pupils reactive abg 7.36//75 on peep 5 Fi02 40% started on abx empirically ?aspiration bronchodilators monitor troponins/echo pending pressors as needed MAP above 65 prognosis poor crit care time 35 min Plan discussed with: Other (rn) GABRIELA MARTINEZ MD Jul 28, 2024 11:11
--- NOTE | 2024-07-28 11:28 | DVHPN2 ---
Subjective Intubated and sedated FiO2 at 30% PEEP of 5 She is on Versed and fentanyl and Levophed drip She is also receiving normal saline Changes from previous H/P or p: Changes Eyes: No Pain, No Vision change, No Conjunctivae inflammation, No Eyelid inflammation, No Other, No Redness ENT: No Ear pain, No Ear discharge, No Nose pain, No Nose discharge, No Nose congestion, No Mouth pain, No Mouth swelling, No Throat pain, No Throat swelling, No Other Respiratory: No Cough, No Dry, No Shortness of breath, No SOB with excertion, No Wheezing, No Hemoptysis, No Pleuritic Pain, No Sputum, No Other Gastrointestinal: No Nausea, No Vomiting, No Abdominal Pain, No Diarrhea, No Constipation, No Melena, No Hematochezia, No Other Genitourinary: No Dysuria, No Frequency, No Incontinence, No Hematuria, No Retention, No Other Skin: No Rash, No Lesions, No Jaundice, No Bruising, No Other Objective Vitals Vital Signs Date Time Temp Pulse Resp B/P (MAP) Pulse Ox O2 Delivery O2 Flow Rate FiO2 07/28/24 09:53 123 24 92/81 (85) 96 30 07/28/24 07:45 Mechanical Ventilator+ 07/28/24 07:00 100.6 213.1 Intake/Output Intake and Output 07/28/24 07:00 Intake Total 2447.125 ml Output Total 245 ml Balance 2202.125 ml Intake Oral 0 ml IV Total 2447.125 ml Output Urine Total 245 ml # Bowel Movements 1 General Appearance: Other (Intubated and sedated) Lungs: Other (Bilateral rhonchi) Cardiovascular: Regular rate, Normal S1 Abdomen: Normal bowel sounds, Soft Extremities: No edema Medications Current Medications Medications Dose Ordered Sig/Yovanny Route Start Time Stop Time Status Last Admin Dose Admin Norepinephrine Bitartrate 250 ml @ 3.75 mls/hr Q24H IV 07/27/24 00:00 07/27/24 23:55 3.75 MLS/HR Midazolam HCl 50 ml @ 1 mls/hr Q24H IV 07/27/24 01:00 07/27/24 22:49 4 MLS/HR Fentanyl Citrate 250 ml @ 2.5 mls/hr Q24H IV 07/27/24 01:00 07/27/24 01:02 2.5 MLS/HR Pantoprazole Sodium 40 mg DAILY IV 07/27/24 10:00 07/28/24 09:43 40 MG Sodium Chloride 1,000 ml @ 100 mls/hr Q10H IV 07/27/24 07:00 07/28/24 03:14 100 MLS/HR Furosemide 40 mg BIDD IV 07/27/24 18:00 07/28/24 07:50 40 MG Ceftriaxone Sodium 50 ml @ 100 mls/hr DAILY@09 IV 07/28/24 09:00 07/28/24 09:43 100 MLS/HR Doxycycline Hyclate 100 ml @ 50 mls/hr Q12H IV 07/27/24 14:15 07/28/24 03:08 50 MLS/HR Enoxaparin Sodium 40 mg DAILY SC 07/28/24 10:00 07/28/24 09:43 40 MG Magnesium Sulfate/ Dextrose 100 ml @ 100 mls/hr Q1HR IV 07/28/24 10:00 07/28/24 11:59 Laboratory Results Laboratory Tests 07/28/24 05:40 Chemistry Test 07/28/24 05:40 Albumin 3.3 g/dL (3.2-4.8) Calcium Level 8.9 mg/dL (8.7-10.4) Magnesium Level 1.6 mg/dL (1.6-2.6) Total Protein 5.7 g/dL (5.7-8.2) Coagulation Test 07/28/24 09:23 Prothrombin Time 11.4 sec (9.3-11.8) Prothrombin Time INR 1.08 (0.9-1.15) Activated Partial Thromboplast Time 33.3 SEC (24.5-34.5) LFT Test 07/28/24 05:40 Alanine Aminotransferase (ALT) 43 U/L (7-40) H Alkaline Phosphatase 53 U/L (46-116) Aspartate Amino Transferase (AST) 91 U/L (13-40) H Total Bilirubin 0.2 mg/dL (0.2-1.0) Blood Gas Results Test 07/28/24 06:44 Arterial Blood pH 7.364 (7.350-7.450) FiO2 % 30.0 Microbiology Microbiology Date/Time Source Procedure Growth Status 07/27/24 01:47 Blood Blood Culture - Preliminary NO GROWTH AFTER 24 HOURS OF INCUBATION. Resulted 07/27/24 00:00 Sputum Gram Stain Pending Resulted 07/27/24 00:00 Sputum Respiratory Culture - Preliminary Resulted Assessment/Plan Assessment/Plan Acute cardiac arrest Status post CPR with ROSC Acute hypoxic respiratory failure Chronic respiratory failure History of heart failure Acute on chronic systolic heart failure Obesity Acute kidney injury mediated by hemodynamically etiology ?CKD History of CHF History of CAD Sepsis Leukocytosis due to sepsis Right 6th rib fracture Right subcutaneous emphysema Plan Mechanical ventilation Go down on Versed drip as tolerated Cardiology consult Echocardiogram shows ejection fraction 25% with severe dysfunction globally and left ventricle dilation and right ventricle markedly dilation with mild dysfunction Pulmonary consultation Start IV Lasix Broad-spectrum antibiotics Urine culture Blood culture Full code Discussed with her daughter over the phone Advance directives discussed for 20 minutes Not stable for transfer 07/28/2024: Start feeding Continue IV fluids Give a bolus of NS 1 L since her CVP is low at 6 Nephrology consult Continue IV antibiotics Rocephin and doxycycline Tapered down the Versed as tolerated Levophed as needed Pulmonary consult Cardiology consult Continue Lasix Full code Plan discussed with: Daughter, Other My Orders Orders - ABDOUL SOUSA MD Procedure Category Date Status Time Furosemide Injection PHA 07/27/24 In Process (Lasix Injection) 18:00 Chest Portable XY 07/28/24 Resulted 06:00 Abg W/ Co-Ox RT 07/28/24 Logged 06:00 Ceftriaxone 1gm/50ml PHA 07/28/24 In Process D5w (Rocephin) 09:00 Doxycycline PHA 07/27/24 In Process 100mg/100ml 14:15 Enoxaparin Sodium PHA 07/28/24 In Process (Lovenox) 10:00 Mrsa Screen NELY 07/27/24 In Process 15:59 Magnesium Sulfate PHA 07/28/24 In Process 1gm/100ml 10:00 Sodium Chloride 0.9% PHA 07/28/24 Logged 11:30 *Dr. [facility] CONS 07/28/24 Transmitted -[place] 11:22 Date of Service: Jul 28, 2024 Billing Provider: ABDOUL SOUSA MD Common Visit Codes: 19866-[facility] 30-74 MIN ABDOUL SOUSA MD Jul 28, 2024 11:28
[2024-07-28] MEDS ORDERED: Nepro With Carb Steady 1 Liter Bottle GT SCH (11:30)
[2024-07-28] MEDS ORDERED: SODIUM CHLORIDE 0.9% 1,000 ML IV ONE (11:30)
[2024-07-28] MEDS: MAGNESIUM SULFATE 1GM/100ML 100 ML IV SCH ×2 (12:34→16:11)
[2024-07-28] MEDS ORDERED: AMIODARONE BOLUS KIT 100 ML IV ONE (13:30)
[2024-07-28] MEDS ORDERED: AMIODARONE 360mg/200mL PREMIX 200 ML IV ONE (13:45)
[2024-07-28] MEDS ORDERED: METOPROLOL TARTRATE 25 MG TAB GT SCH (13:45)
[2024-07-28] MEDS: METOPROLOL TARTRATE 1MG/1ML-5ML VIAL IV ONE ×4 (14:02→18:24)
--- NOTE | 2024-07-28 14:10 | DVHPN2 ---
Consult Progress Note Subjective Review of Systems: CVS:Abnormal Other Systems: Developed SVT, sinus tachycardia Objective vital signs Vital Sign Date Time Temp Pulse Resp B/P (MAP) Pulse Ox O2 Delivery O2 Flow Rate FiO2 07/28/24 12:01 123 25 147/54 (85) 96 30 07/28/24 07:45 Mechanical Ventilator+ 07/28/24 07:00 100.6 213.1 Total Intake and Output 07/27/24 07/27/24 07/28/24 15:00 23:00 07:00 Intake Total 1033.5 ml 1032.00 ml 381.625 ml Output Total 45 ml 200 ml Balance 1033.5 ml 987.00 ml 181.625 ml medications Current Medications Medications Dose Ordered Sig/Yovanny Route Start Time Stop Time Status Last Admin Dose Admin Norepinephrine Bitartrate 250 ml @ 3.75 mls/hr Q24H IV 07/27/24 00:00 07/27/24 23:55 3.75 MLS/HR Midazolam HCl 50 ml @ 1 mls/hr Q24H IV 07/27/24 01:00 07/27/24 22:49 4 MLS/HR Fentanyl Citrate 250 ml @ 2.5 mls/hr Q24H IV 07/27/24 01:00 07/27/24 01:02 2.5 MLS/HR Pantoprazole Sodium 40 mg DAILY IV 07/27/24 10:00 07/28/24 09:43 40 MG Furosemide 40 mg BIDD IV 07/27/24 18:00 07/28/24 07:50 40 MG Ceftriaxone Sodium 50 ml @ 100 mls/hr DAILY@09 IV 07/28/24 09:00 07/28/24 09:43 100 MLS/HR Doxycycline Hyclate 100 ml @ 50 mls/hr Q12H IV 07/27/24 14:15 07/28/24 03:08 50 MLS/HR Enoxaparin Sodium 40 mg DAILY SC 07/28/24 10:00 07/28/24 09:43 40 MG Enteral Nutritional Formula 1,000 ml 40ML/HR GT 07/28/24 11:30 Magnesium Sulfate/ Dextrose 100 ml @ 100 mls/hr Q1HR IV 07/28/24 14:00 07/28/24 15:59 Examination: NECK:Abnormal, CVS:Abnormal, NEURO:Abnormal laboratory and microbiology Laboratory Tests 07/28/24 05:40 Test 07/28/24 05:40 Range/Units Serum Glucose 126 H 74-106 mg/dL Problem List/Assessment/Plan Problem List/Assessment/Plan Transient SVT, sinus tachycardia HFrEF, new onset Pulmonary hypertension CPR with ROSC Sepsis, Cardiogenic shock Acute on chronic respiratory failure NSTEMI likely type 2 due to above Elevated D-dimer- Rule ot PE DVT, ruled out Obesity PATTI on CKD h/o CAD h/o CHF Plan/Recommendation Rate with beta isaiah Replete magnesium to keep mg level >2.2 Echocardiogram revealed EF 20%, LV dilation, moderate pulmonary hypertension Recommends GDMT for CHF as tolerated Daily wt and strict I & Os We will re-evaluate for possible ischemic workup once patient is stable. M edical management for now Thank you for allowing us to participate in this patient's care. Please call if you have any questions or concerns. This medical document was created using an electronic medical record system with [employer] dictation system. Although this document has been carefully reviewed, there might still be some phonetic and typographical errors. These areas are purely typographical due to imperfections of the software programs, and do not reflect any compromise in the patient's medical care. Plan discussed with: Patient, Other Plan discussed with: Patient Date of Service: Jul 28, 2024 Billing Provider: SHIRA WALLS MD Common Visit Codes: NOT BILLABLE DELMI PETERS CUFFER Jul 28, 2024 14:10
--- NOTE | 2024-07-28 14:46 | DVHPN2 ---
Progress Note - Dictate Date Seen: Jul 28, 2024 Has the PT tested + for MRSA If YES, has PT been informed?: Yes Medical Necessity Reason Pt with a Central, PICC or Fol: Yes Subjective Ms. Cagle is a 83 years old female with a history of hypertension, coronary artery disease, heart attack, heart failure, kidney disease, the patient was brought to the [facility] on 07/26/2024 with a chief company of altered mental status, cataract arrest. I have seen and examined the patient, discussed with her nurse and other medical staff, the patient remained intubated, sedated, on pressor drip, nonresponsive to stroke painful stimuli She was tachycardia Levo 10 mg/min, Versed 3 mg/hour, fentanyl 25 mcg/hour ABG, 07/27/2024: Metabolic acidosis, 07/28/2024: Compensated metabolic acidosis, low oxygen CBC, 07/27/2024, metabolic acidosis, metabolic acidosis WBC/HB/PLT/MCV, 07/27/2024: 20.1/13.8/295/I 105, 07/28/2024: 22.1/13.1/212/102.8 In/CR,///1.37 TBI/AST/ALT/AP, 07/27/2024: 0.3/120/23/26, 07/28/2024: 0.2/91/43/53 TG/HDL/LDL/HDL, 07/27/24: 174/153/94/46 Venous Doppler, 08/01/2024: No DVT in the lower extremities CT head, 07/27/2024: 1. Mild chronic ischemic changes without evidence of acute intracranial process. 2. Mild upper cervical spinal canal stenosis. Consider follow-up noncontrast MRI of the cervical spine on an outpatient nonemergent basis once the patient's acute condition has resolved vital signs Vital Sign Date Time Temp Pulse Resp B/P (MAP) Pulse Ox O2 Delivery O2 Flow Rate FiO2 07/28/24 14:07 146 20 129/58 (81) 96 30 07/28/24 07:45 Mechanical Ventilator+ 07/28/24 07:00 100.6 213.1 Total Intake and Output 07/27/24 07/27/24 07/28/24 15:00 23:00 07:00 Intake Total 1033.5 ml 1032.00 ml 381.625 ml Output Total 45 ml 200 ml Balance 1033.5 ml 987.00 ml 181.625 ml medications Current Medications Medications Dose Ordered Sig/Yovanny Route Start Time Stop Time Status Last Admin Dose Admin Norepinephrine Bitartrate 250 ml @ 3.75 mls/hr Q24H IV 07/27/24 00:00 07/27/24 23:55 3.75 MLS/HR Midazolam HCl 50 ml @ 1 mls/hr Q24H IV 07/27/24 01:00 07/27/24 22:49 4 MLS/HR Fentanyl Citrate 250 ml @ 2.5 mls/hr Q24H IV 07/27/24 01:00 07/27/24 01:02 2.5 MLS/HR Pantoprazole Sodium 40 mg DAILY IV 07/27/24 10:00 07/28/24 09:43 40 MG Furosemide 40 mg BIDD IV 07/27/24 18:00 07/28/24 07:50 40 MG Ceftriaxone Sodium 50 ml @ 100 mls/hr DAILY@09 IV 07/28/24 09:00 07/28/24 09:43 100 MLS/HR Doxycycline Hyclate 100 ml @ 50 mls/hr Q12H IV 07/27/24 14:15 07/28/24 03:08 50 MLS/HR Enoxaparin Sodium 40 mg DAILY SC 07/28/24 10:00 07/28/24 09:43 40 MG Enteral Nutritional Formula 1,000 ml 40ML/HR GT 07/28/24 11:30 Magnesium Sulfate/ Dextrose 100 ml @ 100 mls/hr Q1HR IV 07/28/24 14:00 07/28/24 15:59 objective The patient is well-nourished and well-developed with no distress. The patient is intubated MENTAL STATUS: Subjective CRANIAL NERVES: Pupils are equal, round and nonreactive, 3-4mm. There are weak corneal reflexes and doll's eyes phenomenon. No signs of facial weakness. There are no gagging or coughing reflexes SENSATION: No responses to pain stimuli. MOTOR: Normal tone in the upper and lower extremity. Normal muscle bulk. No fasciculations. No spontaneous movement. REFLEXES: Deep tendon reflexes are symmetrical. No pathological reflexes. CEREBELLAR/COORDINATION: Deferred GAIT/STATION: deferred. laboratory and microbiology Laboratory Tests 07/28/24 05:40 Test 07/28/24 05:40 Range/Units Serum Glucose 126 H 74-106 mg/dL Problem List Cardiopulmonary arrest with prolonged downtime Coma Hypoxic encephalopathy Metabolic encephalopathy Acute respiratory failure Myoclonic in bilateral face, left hand secondary to cardiopulmonary arrest Assessment/Plan Monitoring Supportive treatment ICU care EEG Follow-up CT brain scan Follow-up lab test EEG CT head ICU care Stabilize vitals/pressor drip Respiratory support/vent management Oxygen IV antibiotics Consider treat the myoclonus if indicated More recommendation per clinical course This medical document was created using an electronic medical record system with eblizz dictation system. Although this document has been carefully reviewed, there may still be some phonetic and typographical errors. These areas are purely typographical due to imperfections of the software programs, and do not reflect any compromise in the patient's medical care Prognosis guarded Plan discussed with: Other Critical Care Time(min): 35 ELSA RESENDEZ MD Jul 28, 2024 14:46
[2024-07-28] MEDS: SODIUM CHLORIDE 0.9% 500 ML IV ONE (17:06)
[2024-07-28] MEDS: ACETAMINOPHEN 325 MG TAB PO PRN (17:14)
[2024-07-28 18:31] LABS: Urine Amorphous Crystal FEW /hpf (None Seen); Urine Bacteria FEW /hpf (None Seen); Urine Blood 2+ /uL (Negative); Urine Budding Yeast MODERATE /hpf (None Seen); Urine Clarity Turbid (Clear); Urine Color Colorless (Yellow); Urine Mucus FEW (None Seen); Urine Protein, UAD TRACE (Negative); Urine Specific Gravity 1.009 (1.001-1.035); Urine Squamous Epithelial Cell FEW /hpf (<5); Urine Urobilinogen Normal (Negative); Urine WBC 101 /HPF (0-5); Urine WBC Clumps PRESENT /hpf (None Seen)
[2024-07-28 18:34] LABS: Amphetamine Screen, Urine Neg (NEGATIVE); Barbiturate Scree,Urine Neg (NEGATIVE); Benzodiazephine Screen, Urine Pos (NEGATIVE); Cannabinoid Screen, Urine Neg (NEGATIVE); Cocaine Screen, Urine Neg (NEGATIVE); Opiate Scree,Urine Neg (NEGATIVE); Phencyclidine Screen, Urine Neg (NEGATIVE)
[2024-07-28] MEDS: DIGOXIN (250MCG/ML) 2 ML AMPULE IV ONE (19:47)
[2024-07-28] MEDS: LABETALOL HCL 20 MG/4 ML VL IV ONE (22:54)
[2024-07-29] VITALS (101 sets, daily range): BP systolic 88–177; BP diastolic 33–85; PULSE 78–147; RESP 10–45; TEMP 95–100.4; O2SAT 90–100
[2024-07-29] MEDS: AMIODARONE BOLUS KIT 100 ML IV ONE (02:18)
[2024-07-29] MEDS: AMIODARONE 360mg/200mL PREMIX 200 ML IV ONE (02:32)
--- NOTE | 2024-07-29 04:59 | DVH ---
CHEST RADIOGRAPH Indication: vent Technique: Single frontal view of the chest was obtained Comparison: XY CHEST PORTABLE on DOS: 07/28/24 FINDINGS: Lines and Tubes: The endotracheal tube terminates 4.1 cm above the juliana. The enteric tube courses b elow the left hemidiaphragm and the tip extends outside the field of view. Left central venous dale ter terminates in the superior vena cava. Lungs: Bibasilar opacities. Mild pulmonary congestion. Pleura: No effusion. Right lateral pneumothorax. Cardiomediastinal contours: Unremarkable Bones: No acute osseous abnormality. Glenohumeral joint arthrosis. Soft tissues: Subcutaneous emphysema in the right chest wall. IMPRESSION: 1. Stable position of the support lines and tubes. 2. Interval development of a right lateral pneumothorax. 3. Bibasilar opacities. Mild pulmonary congestion.
[2024-07-29 07:28] LABS: Base Excess -13.3 mmol/L (-2.0-3.0)
[2024-07-29 07:53] LABS: Basophils # (auto) 0 10 ^3/uL (0-0.2); Basophils % (auto) 0.1 % (0.0-2.0); Eosinophils # (auto) 0 10 ^3/uL (0-0.8); Lymphocytes # (auto) 1.3 10 ^3/uL (0.4-5.4); Mean Corpuscular Volume 102.2 fL (80.0-100.0)
[2024-07-29 07:54] LABS: Alanine Aminotransferase 38 U/L (7-40); Albumin 3.3 g/dL (3.2-4.8); Alkaline Phosphatase 97 U/L (46-116); Anion Gap 18 (5-15); BUN/Creatinine Ratio 14.5 (10.0-20.0); Magnesium 2.5 mg/dL (1.6-2.6); Potassium 4.5 mmol/L (3.5-5.1); Sodium 139 mmol/L (136-145)
[2024-07-29 07:55] LABS: Total Protein 5.8 g/dL (5.7-8.2)
[2024-07-29 07:58] LABS: Eosinophils % (auto) 0.2 % (0.0-7.0); Hematocrit 33.2 % (36.0-46.0); Hemoglobin 10.8 g/dL (12.2-16.2); Lymphocytes % (auto) 6.8 % (10.0-50.0); Mean Corpuscular Hemoglobin 33.4 pg (28.0-32.0); Mean Corpuscular Hgb Conc. 32.6 g/dL (32.0-36.0); Monocytes # (auto) 1.3 10 ^3/uL (0-1.3); Monocytes % (auto) 6.6 % (0.0-12.0); Neutrophils # (auto) 16.9 10 ^3/uL (1.6-8.6); Neutrophils % (auto) 86.3 % (37.0-80.0); Nucleated Red Blood Cells % 0.1 %; Platelet Count (auto) 231 10^3/uL (140-450); Red Blood Cells 3.25 10^6/uL (4.0-5.20); Red Cell Distribution Width 14.1 % (11.8-14.3); White Blood Cell 19.6 10^3/uL (4.4-10.8)
[2024-07-29 08:02] LABS: Aspartate Aminotransferase 90 U/L (13-40); Bilirubin, Total 0.2 mg/dL (0.2-1.0); Blood Urea Nitrogen 52 mg/dL (9-23); Carbon Dioxide 12 mmol/L (20-31); Chloride 109 mmol/L (98-107); Glucose 133 mg/dL (74-106)
[2024-07-29] MEDS: AMIODARONE 360mg/200mL PREMIX 200 ML IV SCH (08:15)
--- NOTE | 2024-07-29 08:20 | DVH ---
EXAM: XY CHEST PORTABLE Indication: Pneumothorax Technique: Single frontal view of the chest was obtained Comparison: XY CHEST PORTABLE on DOS: 07/29/24, XY CHEST PORTABLE on DOS: 07/28/24, XY CHEST XRAY 1 VIE W on DOS: 07/27/24, XY CHEST XRAY 1 VIEW on DOS: 07/27/24, XY CHEST XRAY 1 VIEW on DOS: 07/27/24 FINDINGS: Lines and Tubes: Endotracheal tube projects 4 cm above the juliana. Enteric tube tip projects over the expected region of the stomach. Left central venous catheter tip projects over the superior vena cav a. Lungs: Small right pneumothorax. Bibasilar opacities. Cardiomediastinal contours: Unremarkable. Subcutaneous gas along the right chest wall. Bones: No acute osseous abnormality. IMPRESSION: No significant change compared to prior exam.
--- NOTE | 2024-07-29 08:25 | DVHPN2 ---
Progress Note Date Seen: Jul 29, 2024 Has the PT tested + for MRSA If YES, has PT been informed?: Yes Medical Necessity Reason Pt with a Central, PICC or Fol: Yes Objective vital signs Vital Sign Date Time Temp Pulse Resp B/P (MAP) Pulse Ox O2 Delivery O2 Flow Rate FiO2 07/29/24 07:45 91 26 127/52 (77) 100 60 07/29/24 07:37 99.9 07/29/24 02:00 Mechanical Ventilator+ Total Intake and Output 07/28/24 07/28/24 07/29/24 15:00 23:00 07:00 Intake Total 150 ml 144.0 ml 82.83 ml Output Total 425 ml Balance 150 ml -281.0 ml 82.83 ml medications Current Medications Medications Dose Ordered Sig/Yovanny Route Start Time Stop Time Status Last Admin Dose Admin Norepinephrine Bitartrate 250 ml @ 3.75 mls/hr Q24H IV 07/27/24 00:00 07/27/24 23:55 3.75 MLS/HR Midazolam HCl 50 ml @ 1 mls/hr Q24H IV 07/27/24 01:00 07/29/24 01:34 3 MLS/HR Fentanyl Citrate 250 ml @ 2.5 mls/hr Q24H IV 07/27/24 01:00 07/27/24 01:02 2.5 MLS/HR Pantoprazole Sodium 40 mg DAILY IV 07/27/24 10:00 07/28/24 09:43 40 MG Furosemide 40 mg BIDD IV 07/27/24 18:00 07/29/24 07:38 40 MG Ceftriaxone Sodium 50 ml @ 100 mls/hr DAILY@09 IV 07/28/24 09:00 07/28/24 09:43 100 MLS/HR Doxycycline Hyclate 100 ml @ 50 mls/hr Q12H IV 07/27/24 14:15 07/29/24 02:35 50 MLS/HR Enoxaparin Sodium 40 mg DAILY SC 07/28/24 10:00 07/28/24 09:43 40 MG Enteral Nutritional Formula 1,000 ml 40ML/HR GT 07/28/24 11:30 Acetaminophen 650 mg Q4HP PRN PO 07/28/24 16:45 07/29/24 06:11 650 MG Examination: GENERAL:Abnormal, HEENT:Abnormal, LUNGS:Abnormal, CVS:Abnormal, ABDOMEN:Abnormal laboratory and microbiology Laboratory Tests 07/29/24 04:30 Test 07/29/24 04:30 Range/Units Serum Glucose 133 H 74-106 mg/dL Microbiology Date/Time Source Procedure Growth Status 07/27/24 15:58 Nose MRSA Screen - Final Complete 07/27/24 01:47 Blood Blood Culture - Preliminary NO GROWTH AFTER 48 HOURS OF INCUBATION. Resulted 07/27/24 00:00 Sputum Gram Stain - Final Resulted 07/27/24 00:00 Sputum Respiratory Culture - Preliminary Resulted Problem List/Assessment/Plan Problem List/Assessment/Plan out of hospital cardiac arrest PATTI obesity new dx of CHF with systolic HF HTN recommend renal consult for olgiria probable need for [employer] iv lasix, limited response neuro consult pulm eval for intubation cont tele poor prognosis Plan discussed with: Patient Date of Service: Jul 29, 2024 Billing Provider: SHIRA WALLS MD Common Visit Codes: NOT BILLABLE SHIRA WALLS MD Jul 29, 2024 08:25
--- NOTE | 2024-07-29 10:07 | DVHINCON2 ---
Date of service: Jul 29, 2024 Reason for Consultation Acute kidney injury History of Present Illness 83 year old female found by daughter after LOC in bathroom. Patient had cardiac arrest. Brought to ICU for acute management. Nephrology called for worsening renal function Past Medical History Hypertension Congestive Heart Failure Myocardial Infarction (2013) Degenerative Bone Disease Foot Neuropathy Past Surgical History Gastric Bypass Three Sections Hernia Repair Cervical Surgery Allergies: Coded Allergies: Codeine (Verified Allergy, Severe, 03/22/20) Oxycodone (Verified Allergy, Severe, 03/22/20) Home Meds Active Scripts Methylprednisolone (Medrol Dosepak) 4 Mg Miguelito, 4 MG PO UD, #21 TAB UAD Prov:FORTINO BROWNING MD 12/02/21 Current Medications Current Medications Medications (Trade) Dose Ordered Sig/Yovanny Route PRN Reason Start Time Stop Time Status Last Admin Enteral Nutritional Formula (Nepro With Carb Steady) 1,000 ml 40ML/HR GT 07/28/24 11:30 Metoprolol Tartrate (Lopressor Tablet) 25 mg BID GT 07/28/24 13:45 07/28/24 13:57 DC Magnesium Sulfate/ Dextrose 100 ml @ 100 mls/hr Q1HR IV 07/28/24 14:00 07/28/24 15:59 DC 07/28/24 17:07 Acetaminophen (Tylenol Tablet) 650 mg Q4HP PRN PO PAIN SCALE 1-3 OR TEMP>100.4 07/28/24 16:45 07/29/24 06:11 Sodium Bicarbonate 150 ml/Dextrose 1,150 ml @ 100 mls/hr [id number] IV 07/29/24 10:45 UNV Family History: Patient reports no known family medical history. Review of Systems cannot obtain due to critical illness H&P Exam Vital Signs/I&O Vital Sign Date Time Temp Pulse Resp B/P (MAP) Pulse Ox O2 Delivery O2 Flow Rate FiO2 07/29/24 10:15 99.1 101 17 133/57 (82) 210.4 123/52 (75) 07/29/24 10:00 99 Mechanical Ventilator+ 60 60 Intake and Output 07/28/24 07/29/24 19:00 07:00 Intake Total 272.0 ml 221.83 ml Output Total 425 ml Balance -153.0 ml 221.83 ml Intake Oral 0 ml 0 ml IV Total 272.0 ml 221.83 ml Output Urine Total 425 ml Physical Exam elderly white female intubated sedated poor light reflex, minimal gag mottled skin b/l toes and feet no LE edema tavarez intubated +BS Labs/Diagnostic Data Labs/Diagnostic Data Laboratory Tests Test 07/29/24 07:22 07/29/24 04:30 07/28/24 17:00 07/28/24 09:23 Range/Units Blood Gas Specimen Type Arterial Blood Gas Sample Site Arterial line Blood Gas Patient Temperature 37.0 Arterial Blood Date Drawn [id number] Arterial Blood pH 7.252 L 7.350-7.450 Arterial Blood Partial Pressure CO2 29.0 L 32.0-45.0 mmHg Arterial Blood Partial Pressure O2 139.1 H 83.0-108.0 mmHg Arterial Blood HCO3 12.5 L 21.0-28.0 mmol/L Arterial Blood Oxygen Saturation 97.7 94.0-98.0 % Arterial Blood Base Excess -13.3 L -2.0-3.0 mmol/L Arterial Blood Oxyhemoglobin 96.8 94.0-98.0 % Arterial Blood Carboxyhemoglobin 0.6 0.5-1.5 % Arterial Blood Methemoglobin 0.3 0.0-1.5 % Ranulfo Test N/a Blood Gas Total Hemoglobin 11.10 L 12.0-16.0 g/dL Blood Gas Set Respiration Rate 20.0 Blood Gas Modality Vent - ac FiO2 % 60.0 Blood Gas Tidal Volume 400.0 Blood Gas PEEP or CPAP 3.0 White Blood Count 19.6 H 4.4-10.8 10^3/uL Red Blood Count 3.25 L 4.0-5.20 10^6/uL Hemoglobin 10.8 #L 12.2-16.2 g/dL Hematocrit 33.2 #L 36.0-46.0 % Mean Corpuscular Volume 102.2 H 80.0-100.0 fL Mean Corpuscular Hemoglobin 33.4 H 28.0-32.0 pg Mean Corpuscular Hemoglobin Concent 32.6 32.0-36.0 g/dL Red Cell Distribution Width 14.1 11.8-14.3 % Platelet Count 231 140-450 10^3/uL Mean Platelet Volume 8.0 6.9-10.8 fL Neutrophils (%) (Auto) 86.3 H 37.0-80.0 % Lymphocytes (%) (Auto) 6.8 L 10.0-50.0 % Monocytes (%) (Auto) 6.6 0.0-12.0 % Eosinophils (%) (Auto) 0.2 0.0-7.0 % Basophils (%) (Auto) 0.1 0.0-2.0 % Neutrophils # (Auto) 16.9 H 1.6-8.6 10 ^3/uL Lymphocytes # (Auto) 1.3 0.4-5.4 10 ^3/uL Monocytes # (Auto) 1.3 0-1.3 10 ^3/uL Eosinophils # (Auto) 0 0-0.8 10 ^3/uL Basophils # (Auto) 0 0-0.2 10 ^3/uL Nucleated Red Blood Cells 0.1 % Sodium Level 139 136-145 mmol/L Potassium Level 4.5 3.5-5.1 mmol/L Chloride Level 109 H 98-107 mmol/L Carbon Dioxide Level 12 L 20-31 mmol/L Anion Gap 18 H 5-15 Blood Urea Nitrogen 52 #H 9-23 mg/dL Creatinine 3.58 #H 0.550-1.02 mg/dL Glomerular Filtration Rate Calc 12 >90 mL/min BUN/Creatinine Ratio 14.5 10.0-20.0 Serum Glucose 133 H 74-106 mg/dL Calcium Level 8.0 L 8.7-10.4 mg/dL Magnesium Level 2.5 1.6-2.6 mg/dL Total Bilirubin 0.2 0.2-1.0 mg/dL Aspartate Amino Transferase (AST) 90 H 13-40 U/L Alanine Aminotransferase (ALT) 38 7-40 U/L Alkaline Phosphatase 97 46-116 U/L Total Protein 5.8 5.7-8.2 g/dL Albumin 3.3 3.2-4.8 g/dL Urine Color Colorless Yellow Urine Clarity Turbid H Clear Urine pH 5.0 5.0-9.0 Urine Specific Guy 1.009 1.001-1.035 Urine Protein Trace H Negative Urine Ketones Negative Negative Urine Blood 2+ H Negative /uL Urine Nitrite Negative Negative Urine Bilirubin Negative Negative Urine Urobilinogen Normal Negative mg/dL Urine Leukocyte Esterase 3+ Negative /uL Urine RBC 30 0 - 4 /hpf Urine WBC Clumps Present None Seen /hpf Urine Microscopic WBC 101 H 0-5 /HPF Urine Squamous Epithelial Cells Few <5 /hpf Urine Amorphous Crystals Few None Seen /hpf Urine Bacteria Few H None Seen /hpf Urine Mucus Few None Seen Urine Yeast (Budding) Moderate None Seen /hpf Urine Glucose Normal Normal mg/dL Urine Opiates Screen Neg NEGATIVE Urine Fentanyl Screen Pos NEGATIVE Urine Barbiturates Screen Neg NEGATIVE Urine Phencyclidine Screen Neg NEGATIVE Urine Amphetamines Screen Neg NEGATIVE Urine Benzodiazepines Screen Pos NEGATIVE Urine Cocaine Screen Neg NEGATIVE Urine Cannabinoids Screen Neg NEGATIVE Prothrombin Time 11.4 9.3-11.8 sec Prothrombin Time INR 1.08 0.9-1.15 Activated Partial Thromboplast Time 33.3 24.5-34.5 SEC Test 07/28/24 06:44 07/28/24 05:40 07/27/24 07:46 07/27/24 05:59 Range/Units Blood Gas Specimen Type Arterial Arterial Blood Gas Sample Site Arterial line Arterial line Blood Gas Patient Temperature 37.0 37.0 Arterial Blood Date Drawn [id number] Arterial Blood pH 7.364 7.345 L 7.350-7.450 Arterial Blood Partial Pressure CO2 25.4 L 31.2 L 32.0-45.0 mmHg Arterial Blood Partial Pressure O2 75.0 L 115.0 H 83.0-108.0 mmHg Arterial Blood HCO3 14.2 L 16.6 L 21.0-28.0 mmol/L Arterial Blood Oxygen Saturation 94.1 97.6 94.0-98.0 % Arterial Blood Base Excess -9.7 L -7.8 L -2.0-3.0 mmol/L Arterial Blood Oxyhemoglobin 92.9 L 96.3 94.0-98.0 % Arterial Blood Carboxyhemoglobin 1.0 1.0 0.5-1.5 % Arterial Blood Methemoglobin 0.3 0.3 0.0-1.5 % Ranulfo Test N/a N/a Blood Gas Total Hemoglobin 11.50 L 13.80 12.0-16.0 g/dL Blood Gas Set Respiration Rate 20.0 20.0 Blood Gas Modality Vent - ac Vent - ac FiO2 % 30.0 40.0 Blood Gas Tidal Volume 400.0 400.0 Blood Gas PEEP or CPAP 5.0 5.0 White Blood Count 22.1 H 4.4-10.8 10^3/uL Red Blood Count 3.88 L 4.0-5.20 10^6/uL Hemoglobin 13.1 12.2-16.2 g/dL Hematocrit 39.9 36.0-46.0 % Mean Corpuscular Volume 102.8 H 80.0-100.0 fL Mean Corpuscular Hemoglobin 33.7 H 28.0-32.0 pg Mean Corpuscular Hemoglobin Concent 32.8 32.0-36.0 g/dL Red Cell Distribution Width 14.1 11.8-14.3 % Platelet Count 212 140-450 10^3/uL Mean Platelet Volume 7.3 6.9-10.8 fL Neutrophils (%) (Auto) 84.9 H 37.0-80.0 % Lymphocytes (%) (Auto) 5.7 L 10.0-50.0 % Monocytes (%) (Auto) 8.9 0.0-12.0 % Eosinophils (%) (Auto) 0.4 0.0-7.0 % Basophils (%) (Auto) 0.1 0.0-2.0 % Neutrophils # (Auto) 18.7 H 1.6-8.6 10 ^3/uL Lymphocytes # (Auto) 1.2 0.4-5.4 10 ^3/uL Monocytes # (Auto) 2.0 H 0-1.3 10 ^3/uL Eosinophils # (Auto) 0.1 0-0.8 10 ^3/uL Basophils # (Auto) 0 0-0.2 10 ^3/uL Nucleated Red Blood Cells 0.1 % Sodium Level 143 136-145 mmol/L Potassium Level 4.8 3.5-5.1 mmol/L Chloride Level 112 H 98-107 mmol/L Carbon Dioxide Level 13 L 20-31 mmol/L Anion Gap 18 H 5-15 Blood Urea Nitrogen 29 H 9-23 mg/dL Creatinine 2.36 #H 0.550-1.02 mg/dL Glomerular Filtration Rate Calc 20 >90 mL/min BUN/Creatinine Ratio 12.3 10.0-20.0 Serum Glucose 126 H 74-106 mg/dL Calcium Level 8.9 8.7-10.4 mg/dL Magnesium Level 1.6 1.6-2.6 mg/dL Total Bilirubin 0.2 0.2-1.0 mg/dL Aspartate Amino Transferase (AST) 91 H 13-40 U/L Alanine Aminotransferase (ALT) 43 H 7-40 U/L Alkaline Phosphatase 53 46-116 U/L Ammonia < 10 L 11-32 umol/L B-Type Natriuretic Peptide 93.08 0-100 pg/mL Total Protein 5.7 5.7-8.2 g/dL Albumin 3.3 3.2-4.8 g/dL POC Glucose 157 H 70-106 mg/dl Test 07/27/24 05:43 07/27/24 04:59 07/27/24 02:52 07/27/24 02:35 Range/Units Influenza Type A Antigen Negative Negative Influenza Type B Antigen Negative Negative SARS-CoV-2 Antigen (Rapid) Negative NEGATIVE White Blood Count 20.1 #H 4.4-10.8 10^3/uL Red Blood Count 4.16 4.0-5.20 10^6/uL Hemoglobin 13.8 12.2-16.2 g/dL Hematocrit 42.2 36.0-46.0 % Mean Corpuscular Volume 101.5 H 80.0-100.0 fL Mean Corpuscular Hemoglobin 33.2 H 28.0-32.0 pg Mean Corpuscular Hemoglobin Concent 32.7 32.0-36.0 g/dL Red Cell Distribution Width 13.5 11.8-14.3 % Platelet Count 295 140-450 10^3/uL Mean Platelet Volume 7.5 6.9-10.8 fL Neutrophils (%) (Auto) 37.0-80.0 % Lymphocytes (%) (Auto) 10.0-50.0 % Monocytes (%) (Auto) 0.0-12.0 % Basophils (%) (Auto) 0.0-2.0 % Neutrophils # (Auto) 1.6-8.6 10 ^3/uL Lymphocytes # (Auto) 0.4-5.4 10 ^3/uL Monocytes # (Auto) 0-1.3 10 ^3/uL Differential Total Cells Counted 100.0 100 Neutrophils % (Manual) 79 37.0-80.0 Band Neutrophils % (Manual) 10 Lymphocytes % (Manual) 4 L 10.0-50.0 Monocytes % (Manual) 7 0-12 Eosinophils % (Manual) 0 0-7 Basophils % (Manual) 0 0.0-2.0 Metamyelocytes % (manual) 0 Myelocytes % (Manual) 0 Promyelocytes % (Manual) 0 Blast Cells % (Manual) 0 Reactive Lymphocytes 0 Platelet Estimate Adequate Prothrombin Time 11.3 9.3-11.8 sec Prothrombin Time INR 1.07 0.9-1.15 Activated Partial Thromboplast Time 26.0 24.5-34.5 SEC D-Dimer, Quantitative > 35.20 H 0.0-0.49 mg/L FEU Sodium Level 140 136-145 mmol/L Potassium Level 4.1 3.5-5.1 mmol/L Chloride Level 108 H 98-107 mmol/L Carbon Dioxide Level 21 20-31 mmol/L Anion Gap 11 5-15 Blood Urea Nitrogen 22 9-23 mg/dL Creatinine 1.37 H 0.550-1.02 mg/dL Glomerular Filtration Rate Calc 39 >90 mL/min BUN/Creatinine Ratio 16.1 10.0-20.0 Serum Glucose 183 H 74-106 mg/dL Hemoglobin A1c 5.4 <5.7 % A1C Calcium Level 10.2 # 8.7-10.4 mg/dL Magnesium Level 1.8 1.6-2.6 mg/dL Total Bilirubin 0.3 0.2-1.0 mg/dL Aspartate Amino Transferase (AST) 120 H 13-40 U/L Alanine Aminotransferase (ALT) 53 H 7-40 U/L Alkaline Phosphatase 66 46-116 U/L Troponin I High Sensitivity 107 *H 105 *H </=34 ng/L Total Protein 6.5 5.7-8.2 g/dL Albumin 4.0 3.2-4.8 g/dL Triglycerides Level 174 H < 150 mg/dL Cholesterol Level 153 < 200 mg/dL LDL Cholesterol 94 < 100 mg/dL HDL Cholesterol 46 40-59 mg/dL Thyroid Stimulating Hormone (TSH) 1.21 1.57 0.55-4.78 uIU/mL Blood Gas Specimen Type Arterial Blood Gas Sample Site Arterial line Blood Gas Patient Temperature 37.0 Arterial Blood Date Drawn [id number] Arterial Blood pH 7.301 L 7.350-7.450 Arterial Blood Partial Pressure CO2 38.9 32.0-45.0 mmHg Arterial Blood Partial Pressure O2 385.5 *H 83.0-108.0 mmHg Arterial Blood HCO3 18.8 L 21.0-28.0 mmol/L Arterial Blood Oxygen Saturation 99.2 H 94.0-98.0 % Arterial Blood Base Excess -7.1 L -2.0-3.0 mmol/L Arterial Blood Oxyhemoglobin 98.6 H 94.0-98.0 % Arterial Blood Carboxyhemoglobin 0.6 0.5-1.5 % Arterial Blood Methemoglobin 0.0 0.0-1.5 % Ranulfo Test N/a Blood Gas Total Hemoglobin 14.40 12.0-16.0 g/dL Blood Gas Set Respiration Rate 20.0 Blood Gas Modality Vent - ac FiO2 % 100.0 Blood Gas Tidal Volume 400.0 Blood Gas PEEP or CPAP 5.0 Blood Gas Critical Value Read Back Yes Blood Gas Notified Whom Md annamarie coy Blood Gas Notified Time [id number] Blood Gas Notified By Christy Castanon 07/27/24 02:00 07/27/24 01:47 07/26/24 23:55 Range/Units Lactic Acid Level 3.9 *H 11.6 *H 0.4-2.0 mmol/L Troponin I High Sensitivity 72 *H 16 </=34 ng/L White Blood Count 7.7 4.4-10.8 10^3/uL Red Blood Count 3.93 L 4.0-5.20 10^6/uL Hemoglobin 13.2 12.2-16.2 g/dL Hematocrit 41.0 36.0-46.0 % Mean Corpuscular Volume 104.4 H 80.0-100.0 fL Mean Corpuscular Hemoglobin 33.6 H 28.0-32.0 pg Mean Corpuscular Hemoglobin Concent 32.2 32.0-36.0 g/dL Red Cell Distribution Width 14.1 11.8-14.3 % Platelet Count 262 140-450 10^3/uL Mean Platelet Volume 7.2 6.9-10.8 fL Neutrophils (%) (Auto) 37.0-80.0 % Lymphocytes (%) (Auto) 10.0-50.0 % Monocytes (%) (Auto) 0.0-12.0 % Basophils (%) (Auto) 0.0-2.0 % Neutrophils # (Auto) 1.6-8.6 10 ^3/uL Lymphocytes # (Auto) 0.4-5.4 10 ^3/uL Monocytes # (Auto) 0-1.3 10 ^3/uL Differential Total Cells Counted 100.0 100 Neutrophils % (Manual) 19 L 37.0-80.0 Band Neutrophils % (Manual) 4 Lymphocytes % (Manual) 71 H 10.0-50.0 Monocytes % (Manual) 3 0-12 Eosinophils % (Manual) 1 0-7 Basophils % (Manual) 0 0.0-2.0 Metamyelocytes % (manual) 0 Myelocytes % (Manual) 0 Promyelocytes % (Manual) 0 Blast Cells % (Manual) 0 Reactive Lymphocytes 2 Platelet Estimate Adequate Sodium Level 143 136-145 mmol/L Potassium Level 3.7 3.5-5.1 mmol/L Chloride Level 107 98-107 mmol/L Carbon Dioxide Level 19 L 20-31 mmol/L Anion Gap 17 H 5-15 Blood Urea Nitrogen 15 9-23 mg/dL Creatinine 1.09 H 0.550-1.02 mg/dL Glomerular Filtration Rate Calc 51 >90 mL/min BUN/Creatinine Ratio 13.8 10.0-20.0 Serum Glucose 260 H 74-106 mg/dL Calcium Level 14.3 *H 8.7-10.4 mg/dL Total Bilirubin < 0.2 L 0.2-1.0 mg/dL Aspartate Amino Transferase (AST) 57 H 13-40 U/L Alanine Aminotransferase (ALT) 34 7-40 U/L Alkaline Phosphatase 67 46-116 U/L B-Type Natriuretic Peptide 36.56 0-100 pg/mL Total Protein 5.8 5.7-8.2 g/dL Albumin 3.6 3.2-4.8 g/dL Lipase 54 H 12-53 U/L Microbiology Date/Time Source Procedure Growth Status 07/27/24 15:58 Nose MRSA Screen - Final Complete Assessment Acute kidney injury due to hypotension no previous ckd Admitted for unresponsiveness in setting of cardiac arrest acute respiratory failure metabolic acidosis elevated troponins CHF EF 20% pneumothorax Start sodium bicarbonate drip due to acidosis keep MAP > 65 strict I/O low threshold to stop fluids if develops overload, lasix can be used PRN cardiology pending neurology w/u due to prolonged down time sepsis w/u renal dose abx critical care time 35mins Plan discussed with: Daughter MATHWECRISTINAMARGO MD Jul 29, 2024 10:07
--- NOTE | 2024-07-29 10:28 | DVHPN2 ---
Progress Note - Dictate Date Seen: Jul 29, 2024 Has the PT tested + for MRSA If YES, has PT been informed?: Yes Medical Necessity Reason Pt with a Central, PICC or Fol: Yes Subjective Ms. Cagle is a 83 years old female with a history of hypertension, coronary artery disease, heart attack, heart failure, kidney disease, the [facility] with a chief company of altered mental status, cataract arrest. I have seen and examined the patient, discussed with her nurse and other medical staff, the patient remained intubated, sedated, nonresponsive to stroke painful stimuli Versed 3 mg/hour, fentanyl 75 mcg/hour ABG, 07/27/2024: Metabolic acidosis, 07/28/2024: Compensated metabolic acidosis, low oxygen CBC, 07/27/2024, metabolic acidosis, metabolic acidosis WBC/HB/PLT/MCV, 07/27/2024: 20.1/13.8/295/I 105, 07/28/2024: 22.1/13.1/212/102.8 In/CR,///1.37 TBI/AST/ALT/AP, 07/27/2024: 0.3/120/23/26, 07/28/2024: 0.2/91/43/53 TG/HDL/LDL/HDL, 07/27/24: 174/153/94/46 Venous Doppler, 08/01/2024: No DVT in the lower extremities CT head, 07/27/2024: 1. Mild chronic ischemic changes without evidence of acute intracranial process. 2. Mild upper cervical spinal canal stenosis. Consider follow-up noncontrast MRI of the cervical spine on an outpatient nonemergent basis once the patient's acute condition has resolved vital signs Vital Sign Date Time Temp Pulse Resp B/P (MAP) Pulse Ox O2 Delivery O2 Flow Rate FiO2 07/29/24 09:44 91 24 131/55 (80) 100 60 07/29/24 08:00 99.0 99.0 07/29/24 06:00 Mechanical Ventilator+ Total Intake and Output 07/28/24 07/28/24 07/29/24 15:00 23:00 07:00 Intake Total 150 ml 144.0 ml 199.83 ml Output Total 425 ml Balance 150 ml -281.0 ml 199.83 ml medications Current Medications Medications Dose Ordered Sig/Yovanny Route Start Time Stop Time Status Last Admin Dose Admin Norepinephrine Bitartrate 250 ml @ 3.75 mls/hr Q24H IV 07/27/24 00:00 07/27/24 23:55 3.75 MLS/HR Midazolam HCl 50 ml @ 1 mls/hr Q24H IV 07/27/24 01:00 07/29/24 01:34 3 MLS/HR Fentanyl Citrate 250 ml @ 2.5 mls/hr Q24H IV 07/27/24 01:00 07/29/24 10:13 7.5 MLS/HR Pantoprazole Sodium 40 mg DAILY IV 07/27/24 10:00 07/29/24 10:03 40 MG Furosemide 40 mg BIDD IV 07/27/24 18:00 07/29/24 07:38 40 MG Ceftriaxone Sodium 50 ml @ 100 mls/hr DAILY@09 IV 07/28/24 09:00 07/29/24 10:03 100 MLS/HR Doxycycline Hyclate 100 ml @ 50 mls/hr Q12H IV 07/27/24 14:15 07/29/24 02:35 50 MLS/HR Enoxaparin Sodium 40 mg DAILY SC 07/28/24 10:00 07/29/24 10:03 40 MG Enteral Nutritional Formula 1,000 ml 40ML/HR GT 07/28/24 11:30 Acetaminophen 650 mg Q4HP PRN PO 07/28/24 16:45 07/29/24 06:11 650 MG objective The patient is well-nourished and well-developed with no distress. The patient is intubated MENTAL STATUS: Subjective CRANIAL NERVES: Pupils are equal, round and nonreactive, 3-4mm. There are weak corneal reflexes and doll's eyes phenomenon. No signs of facial weakness. There are weak gagging or coughing reflexes SENSATION: No responses to pain stimuli. MOTOR: Normal tone in the upper and lower extremity. Normal muscle bulk. No fasciculations. No spontaneous movement. REFLEXES: Deep tendon reflexes are symmetrical. No pathological reflexes. CEREBELLAR/COORDINATION: Deferred GAIT/STATION: deferred. laboratory and microbiology Laboratory Tests 07/29/24 04:30 Test 07/29/24 04:30 Range/Units Serum Glucose 133 H 74-106 mg/dL Problem List Cardiopulmonary arrest with prolonged downtime Coma Hypoxic encephalopathy Metabolic encephalopathy Acute respiratory failure Myoclonic in bilateral face, left hand secondary to cardiopulmonary arrest Assessment/Plan Monitoring Supportive treatment ICU care EEG Follow-up CT brain scan Follow-up lab test EEG ICU care Stabilize vitals/pressor drip Respiratory support/vent management Oxygen IV antibiotics Consider treat the myoclonus if indicated More recommendation per clinical course This medical document was created using an electronic medical record system with [employer] dictation system. Although this document has been carefully reviewed, there may still be some phonetic and typographical errors. These areas are purely typographical due to imperfections of the software programs, and do not reflect any compromise in the patient's medical care Prognosis guarded Plan discussed with: Other Critical Care Time(min): 30 ELSA RESENDEZ MD Jul 29, 2024 10:28
--- NOTE | 2024-07-29 10:43 | ECG ---
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
[2024-07-29] MEDS: SODIUM BICARB 50mEq/50ml Vial 150 ML in D5W 5% 1,000 ML IV SCH (13:00)
--- NOTE | 2024-07-29 15:09 | DVH ---
EXAM: CT HEAD WITHOUT CONTRAST INDICATION: ALOC TECHNIQUE: CT of the head without intravenous contrast. Radiation Dose : 1. Head: CT Dose: CTDI volume is 74 mGy. Dose-length product is 1941 mGy*cm The dose indicators for CT are the volume Computed Tomography (CT) Dose Index (CTDIvol) and the Dose Length Product (DLP), and are measured in units of mGy and mGy-cm, respectively. These indicators are not patient dose, but values generated from the CT scanner acquisition factors. The report includes radiation exposure data for exposures received during this examination. COMPARISON: CT HEAD WITHOUT CONTRAST on DOS: 07/27/24, HEAD WITHOUT CONTRAST on DOS: 03/22/20 FINDINGS: There is no evidence of acute intracranial hemorrhage, extra-axial collection, mass effect, midline s hift, herniation or hydrocephalus. The ventricles, sulci and cisterns are age appropriate. The youngblood-white differentiation is intact. Patchy periventricular and subcortical white matter hypoattenuation is nonspecific but may be related to small vessel ischemic disease. The visualized paranasal sinuses and mastoid air cells are clear. The surrounding soft tissues and osseous structures are unremarkable. IMPRESSION: 1. No acute intracranial abnormality. Radiation optimization: All CT scans at this facility use at least one of these dose optimization danny hniques: automated exposure control mA and/or kV adjustment per patient size (includes targeted exam s where dose is matched to clinical indication) or iterative reconstruction.
--- NOTE | 2024-07-29 15:23 | ECG ---
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
--- NOTE | 2024-07-29 15:24 | ECG ---
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
--- NOTE | 2024-07-29 15:50 | DVH ---
Procedure: CT CHEST WITHOUT CONTRAST Reason for study/Clinical History: Pneumothorax Comparison Study: None available at time of dictation. Exam Date: 07/29/2024 02:29 PM TECHNIQUE: Multidetector CT of the chest was performed from the lung apices to the upper abdomen with out the use of intravenous contract. Axial, coronal and sagittal multiplanar reformats were performed . Radiation Dose Information: CT Dose: CTDI volume is 60 mGy. Dose-length product is 1060 mGy*cm The dose indicators for CT are the volume Computed Tomography (CT) Dose Index (CTDIvol) and the Dose Length Product (DLP), and are measured in units of mGy and mGy-cm, respectively. These indicators are not patient dose, but values generated from the CT scanner acquisition factors. The report includes radiation exposure data for exposures received during this examination. FINDINGS: Lower neck: Patient is intubated. An NG tube is present. Lungs: There is a 50% pneumothorax on the right . Left lung shows no pneumothorax. Small area of con solidation in the left lower lung zone. Heart/Vascular Structures: The heart size is enlarged. No pericardial effusion. Coronary artery calci fication and valvular calcification are present. Lymph Nodes: No adenopathy Pleura: No pleural effusion or significant pneumothorax. Musculoskeletal: Soft tissues: Extensive subcutaneous air is present in the right chest wall. Upper abdomen: Small hiatal hernia. IMPRESSION: 1. Large right-sided pneumothorax Critical results telephoned to the nurse Lisa at 3:30 p.m. Radiation optimization: All CT scans at this facility use at least one of these dose optimization danny hniques: automated exposure control mA and/or kV adjustment per patient size (includes targeted exam s where dose is matched to clinical indication) or iterative reconstruction.
[2024-07-29] MEDS ORDERED: VANCOMYCIN PER PHARMACY 0 MG IV SCH (16:00)
[2024-07-29] MEDS: PIPERACILLIN-TAZOB 3.375GM 100 ML IV ONE (16:00)
[2024-07-29] MEDS: VANCOMYCIN 1.5GM/300ML 300 ML IV ONE (16:30)
[2024-07-29] MEDS: ROCURONIUM 10MG/ML 10ML VIAL IV ONE (17:36)
--- NOTE | 2024-07-29 18:40 | DVH ---
EXAM: XR Chest, 1 View CLINICAL INDICATION: chest tube insertion TECHNIQUE: Frontal view of the chest. COMPARISON: XY CHEST PORTABLE on DOS: 07/29/24, XY CHEST PORTABLE on DOS: 07/29/24, XY CHEST PORTABLE on DOS: 07/28/24, XY CHEST XRAY 1 VIEW on DOS: 07/27/24, XY CHEST XRAY 1 VIEW on DOS: 07/27/24 FINDINGS: LUNGS AND PLEURAL SPACES: Mild pulmonary congestion. No consolidation. No pneumothorax. HEART: Unremarkable. No cardiomegaly. MEDIASTINUM: Unremarkable. Normal mediastinal contour. BONES/JOINTS: Unremarkable. No acute fracture. TUBES, LINES AND DEVICES: The endotracheal tube (ETT) is in satisfactory position. Enteric tube ti p in the stomach. Left internal jugular central venous catheter tip in the superior vena cava. OTHER FINDINGS: . None. . .. IMPRESSION: Mild pulmonary congestion.
[2024-07-29] MEDS: VANCOMYCIN 1.5GM/250ML 250 ML IV ONE (18:53)
--- NOTE | 2024-07-29 19:46 | DVHPNRES ---
Progress Note Date Seen: Jul 29, 2024 Resident Creating Document: REAGAN VEE RESIDENT Has the PT tested + for MRSA If YES, has PT been informed?: Yes Medical Necessity Reason Pt with a Central, PICC or Fol: Yes The following are medically ne: Central Line, Tavarez Catheter Reason for tavarez catheter: Strict I&O Subjective Review of Systems 83-year-old female with past medical history of coronary artery disease, heart failure reduced ejection fraction, prior myocardial infarction 2013, hypertension, morbid obesity, neuropathy and degenerative bone disease who was found collapsed at home in the bathroom. Her daughter, the primary historian, reported that the patient was walking to the bathroom when she suddenly called for help and lost consciousness. EMS arrived within 5 minutes, finding the patient unresponsive, pulseless and in asystole. CPR was initiated and the patient received 2 rounds of epinephrine and sodium bicarbonate therefore achieving return of spontaneous circulation after approximately 15 minutes. Patient is currently under mechanical ventilation, AC, FiO2 40% respiratory rate 20, large pneumothorax was confirmed by thoracic CT scan. Subcutaneous emphysema was also noted, cxrshowedn bilateral infiltrates suggest possible aspiration pneumonia. ABG shows 7.25 pCO2 on 139.1 and HC O2 on 12.5 that is consistent with a metabolic acidosis with compensatory respiratory alkalosis. Recent blood cultures were positive for Gram-positive cocci in clusters for which the patient was started on vancomycin. Chest x-ray showed right lateral pneumothorax , chest tube was placed today. Patient is currently on diuresis with furosemide 40 mg daily IV, Zosyn and vanco was started. Sedatives: Midazolam 3 MLS/hour IV Analgesics: Fentanyl 7.5 MLS/hour IV Vasopressors: Norepinephrine 3.75 mL less/hour, medication held. Blood pressure 134/54 Ventilator settings: Tidal volume: 414 FiO2: 60% Ventilatory support mode: AC Minute ventilation: 8.7 liters/minute Mean airway pressure: 9 cm water Ventilator as appropriate rate: 20 beats per minute Peep: 3 cm water Mandatory sensitivity: 2 cm water Objective vital signs Vital Sign Date Time Temp Pulse Resp B/P (MAP) Pulse Ox O2 Delivery O2 Flow Rate FiO2 07/29/24 18:45 97.0 110 20 154/57 (89) 206.6 135/46 (75) 07/29/24 18:43 99 60 07/29/24 14:00 Mechanical Ventilator+ Total Intake and Output 07/28/24 07/28/24 07/29/24 15:00 23:00 07:00 Intake Total 150 ml 144.0 ml 199.83 ml Output Total 425 ml Balance 150 ml -281.0 ml 199.83 ml medications Current Medications Medications Dose Ordered Sig/Yovanny Route Start Time Stop Time Status Last Admin Dose Admin Norepinephrine Bitartrate 250 ml @ 3.75 mls/hr Q24H IV 07/27/24 00:00 07/27/24 23:55 3.75 MLS/HR Midazolam HCl 50 ml @ 1 mls/hr Q24H IV 07/27/24 01:00 07/29/24 01:34 3 MLS/HR Fentanyl Citrate 250 ml @ 2.5 mls/hr Q24H IV 07/27/24 01:00 07/29/24 10:13 7.5 MLS/HR Pantoprazole Sodium 40 mg DAILY IV 07/27/24 10:00 07/29/24 10:03 40 MG Enoxaparin Sodium 40 mg DAILY SC 07/28/24 10:00 07/29/24 10:03 40 MG Enteral Nutritional Formula 1,000 ml 40ML/HR GT 07/28/24 11:30 Acetaminophen 650 mg Q4HP PRN PO 07/28/24 16:45 07/29/24 06:11 650 MG Sodium Bicarbonate 150 ml/Dextrose 1,150 ml @ 100 mls/hr [id number] IV 07/29/24 10:45 07/29/24 13:00 100 MLS/HR Vancomycin HCl 0 ml @ 0 mls/hr UD IV 07/29/24 16:00 Piperacillin Sod/ Tazobactam Sod 100 ml @ 25 mls/hr Q12HR IV 07/29/24 22:00 Furosemide 40 mg DAILY IV 07/30/24 10:00 Examination General appearance: Intubated, sedated, unresponsive Pupils fixed and dilated bilaterally. Peripheral mottling and cyanosis in extremities Intrajugular central line and left femoral arterial line in place HEENT: Pupils fixed and dilated, nonreactive. No facial trauma, midline drugs. Neurological: Unresponsive to all stimuli. Absent brainstem reflexes Restless score less than 3) deep sedation). Cardiovascular: Regular rate and rhythm, no murmurs or gallops. Cold extremities, poor perfusion, mottling. Diminished pulses with capillary refill more than 4 seconds. Pulmonary: Intubated, ventilator dependent Breath sounds diminished in the right. Subcutaneous emphysema Abdomen: Soft nontender. Hypoactive bowel sounds. Extremities: No edema. Mottled, cyanotic appearance on distal extremities, especially hands. Skin: No rashes laboratory and microbiology Laboratory Tests 07/29/24 04:30 Test 07/29/24 04:30 Range/Units Serum Glucose 133 H 74-106 mg/dL Microbiology Date/Time Source Procedure Growth Status 07/28/24 17:30 Blood Blood Culture - Preliminary Resulted 07/28/24 17:00 Voided Urine Urine Culture - Preliminary Resulted 07/27/24 15:58 Nose MRSA Screen - Final Complete 07/27/24 00:00 Sputum Gram Stain - Final Resulted 07/27/24 00:00 Sputum Respiratory Culture - Preliminary Resulted Problem List/Assessment/Plan Problem List/Assessment/Plan Neurological: #Acute hypoxic encephalopathy due to cardiac arrest #S/P Cardiac arrest #Mild upper cervical spinal canal stenosis CPR for 15 min Neurology consult RASS -3 Versed Fentanyl Neurologic prognosis is very poor Cardiovascular: #Cardiac/Septic shock #S/P Cardiac arrest: AEP #H/o CAD #Acute on chronic heart failure with reduced ejection fraction 25%, NYHA III-IV likely due to septic shock #Severe global dysfunction #Moderate pulmonary hypertension #Biatrial enlargement Need of 2 doses of epinephrine before ROSC, bicarbonate also given Levophed 6 mcg/min , held Troponins trending high Cardiology consult EKG sinus rhythm no ST elevation, repeat EKG Pulmonary #Acute hypoxic respiratory failure due to cardiac arrest #s/p intubation #Multiple right rib fractures # right lateral pneumothorax #Right subcutaneous emphysema due to fractures #Probably aspiration pneumonia VENT settings: Chest tube placement Chest x-ray Continue antibiotics GI PPI prophylaxis: Protonix IV Renal #PATTI s/p cardiac arrest Levophed 6 mcg/min , held #Hypercalcemia #Lactic acidosis Start sodium bicarbonate drip due to acidosis keep MAP > 65 strict I/O Lasix 40 IV daily Endocrinology A1c 5.4 TSH wnl Lines Left IJV central line 07/27/2024 Left femoral arterial line 07/27/2024 Ventilator settings: Settings: Tidal volume: 414 FiO2: 60% Ventilatory support mode: AC Minute ventilation: 8.7 liters/minute Mean airway pressure: 9 cm water Ventilator as appropriate rate: 20 beats per minute Peep: 3 cm water Mandatory sensitivity: 2 cm water Case discussed with Dr. Kiser Time spent on critical care 81 min Full code, Case discussed with the daughter by phone about the poor prognosis and critical state Plan discussed with: Daughter Dietary Evaluation Review Comments: 1. Continue EN formula Nepro @ goal-rate of 40 ml/hr via OGT 2. Provide minimal free water flushes of 50 ml Q4 (300 ml total) or per MD discretion; adjust PRN 3. Monitor BMP/lytes and replete to WNL/PRN 4. Obtain actual weight measurement as able (wt on file estimated) TF Provision: -> TF at goal to provide 960 ml total volume, 1728 kcal, 78 gm pro, 15 gm fiber, 154 gm CHO, 698 ml H20 (meets 100% est. kcal needs, 100% est. pro needs) Expected Outcomes/Goals: Improved nutritional status Date of Service: Jul 29, 2024 Billing Provider: ANITA KISER MD Common Visit Codes: 52840-[id number] CARE 30-74 MIN, 60043-STPSRHFF CARE-EACH +30MIN REAGAN VEE RESIDENT Jul 29, 2024 19:45 ANITA KISER MD Jul 30, 2024 14:50
--- NOTE | 2024-07-29 19:59 | DVHNC2 ---
Procedure - Right Del Chest Tube Placement Cook Del Pigtail Chest tube placement procedure note: Physician: Dr Vahe Leblanc Diagnosis: Pneumothorax, Hypoxia Indication: Hypoxia, evacuation of air from pleural space Consent: Consent was obtained from patient's healthcare proxy prior to procedure. Indication, risks, and benefits were explained at length. Patient medications and allergies reviewed. The risks and benefits of the procedure and the sedation options and risk were discussed with the patient's healthcare proxy. All questions were answered and informed consent was obtained. Patient identification and proposed procedure were verified prior to the procedure by the physician, and a nurse in the patient's room. The heart rate, respiratory rate, oxygen saturations, blood pressure, adequacy of pulmonary ventilation, and response to care were monitored throughout the procedure. The physical status of the patient was reassessed after the procedure. Procedure summary: A time-out was performed and a chest x-ray was reviewed prior to procedure. The appropriate site was confirmed and marked. My hands were washed immediately prior to the procedure, I wore a surgical cap, mask with protective eyewear, sterile gown and sterile gloves throughout the procedure. The patient was prepped and draped in a sterile manner using chlorhexidine scrub after the appropriate level was percussed and confirmed by ultrasound. 1% lidocaine was used to anesthetize the skin, subcutaneous tissue, superior aspect of the rib periosteum and parietal pleura. An 18-gauge needle with syringe attached was inserted into the pleural space with aspiration of air to verify placement. A guidewire was advanced into the pleural space and needle was withdrawn. 0.5 cm incision was made through the skin and subcutaneous tissues were dilated with a dilator. The 14 [place] Cook Del pigtail chest drain was inserted into the pleural space. The drain was then immediately connected to a Pleur-evac. Adequate placement confirmed by air leak. The chest tube was sutured in place and dressing was applied. The patient tolerated the procedure well. CXR post procedure demonstrates RIGHT chest tube in place and re-expansion of the lung. Estimated blood loss: Less than 5 mL. Complications: None. CPT 13813 PATRICIA LEBLANC MD Jul 29, 2024 19:59
[2024-07-29] MEDS: PIPERACILLIN-TAZOB 3.375GM 100 ML IV SCH (22:55)
[2024-07-30] VITALS (101 sets, daily range): BP systolic 90–148; BP diastolic 16–61; PULSE 83–117; RESP 11–24; TEMP 97.7–99.9; O2SAT 98–100
--- NOTE | 2024-07-30 05:06 | DVH ---
EXAM: XR Chest, 1 View CLINICAL INDICATION: CHEST TUBE, ETT PLACEMENT, INTUBATED TECHNIQUE: Frontal view of the chest. COMPARISON: XY CHEST XRAY 1 VIEW on DOS: 07/29/24, XY CHEST PORTABLE on DOS: 07/29/24, XY CHEST ALEXYS BLE on DOS: 07/29/24, XY CHEST PORTABLE on DOS: 07/28/24, XY CHEST XRAY 1 VIEW on DOS: 07/27/24 FINDINGS: LUNGS AND PLEURAL SPACES: See below. HEART: Cardiomegaly with mild congestion. MEDIASTINUM: Unremarkable. Normal mediastinal contour. BONES/JOINTS: Unremarkable. No acute fracture. TUBES, LINES AND DEVICES: The endotracheal tube (ETT) is in satisfactory position. Enteric tube ti p in the stomach. OTHER FINDINGS: . None. IMPRESSION: Cardiomegaly with mild congestion.
[2024-07-30 05:20] LABS: Basophils # (auto) 0 10 ^3/uL (0-0.2); Basophils % (auto) 0.2 % (0.0-2.0); Eosinophils # (auto) 0.2 10 ^3/uL (0-0.8); Eosinophils % (auto) 1.1 % (0.0-7.0); Hematocrit 27.5 % (36.0-46.0); Hemoglobin 9.1 g/dL (12.2-16.2); Lymphocytes # (auto) 0.8 10 ^3/uL (0.4-5.4); Lymphocytes % (auto) 5.3 % (10.0-50.0); Mean Corpuscular Volume 100.2 fL (80.0-100.0); Monocytes # (auto) 1.1 10 ^3/uL (0-1.3); Monocytes % (auto) 6.7 % (0.0-12.0); Neutrophils # (auto) 13.8 10 ^3/uL (1.6-8.6); Neutrophils % (auto) 86.7 % (37.0-80.0); Nucleated Red Blood Cells % 0.1 %; Platelet Count (auto) 195 10^3/uL (140-450); Red Blood Cells 2.75 10^6/uL (4.0-5.20); White Blood Cell 15.9 10^3/uL (4.4-10.8)
[2024-07-30 05:34] LABS: Anion Gap 16 (5-15); Chloride 101 mmol/L (98-107); Potassium 3.5 mmol/L (3.5-5.1)
[2024-07-30 05:40] LABS: BUN/Creatinine Ratio 14.6 (10.0-20.0)
[2024-07-30 05:59] LABS: Blood Urea Nitrogen 59 mg/dL (9-23); Calcium 7.7 mg/dL (8.7-10.4); Carbon Dioxide 19 mmol/L (20-31); Glucose 126 mg/dL (74-106); Sodium 136 mmol/L (136-145)
[2024-07-30 08:26] LABS: Base Excess -5.7 mmol/L (-2.0-3.0)
[2024-07-30] MEDS: FUROSEMIDE 40 MG/4 ML VIAL IV SCH (10:23)
--- NOTE | 2024-07-30 14:02 | DVHPN2 ---
Progress Note Date Seen: Jul 30, 2024 Has the PT tested + for MRSA If YES, has PT been informed?: Yes Medical Necessity Reason Pt with a Central, PICC or Fol: Yes The following are medically ne: Central Line, Tavarez Catheter Reason for tavarez catheter: Strict I&O Subjective Other Systems: not responded on sedation however Objective vital signs Vital Sign Date Time Temp Pulse Resp B/P (MAP) Pulse Ox O2 Delivery O2 Flow Rate FiO2 07/30/24 13:52 85 20 110/42 (64) 100 30 07/30/24 12:00 98.4 209.1 07/30/24 12:00 Mechanical Ventilator+ Total Intake and Output 07/29/24 07/29/24 07/30/24 15:00 23:00 07:00 Intake Total 590.12 ml 1160.947 ml 1240.78 ml Output Total 410 ml 365 ml Balance 590.12 ml 750.947 ml 875.78 ml medications Current Medications Medications Dose Ordered Sig/Yovanny Route Start Time Stop Time Status Last Admin Dose Admin Norepinephrine Bitartrate 250 ml @ 3.75 mls/hr Q24H IV 07/27/24 00:00 07/27/24 23:55 3.75 MLS/HR Midazolam HCl 50 ml @ 1 mls/hr Q24H IV 07/27/24 01:00 07/30/24 11:54 4 MLS/HR Fentanyl Citrate 250 ml @ 2.5 mls/hr Q24H IV 07/27/24 01:00 07/30/24 11:57 12.5 MLS/HR Pantoprazole Sodium 40 mg DAILY IV 07/27/24 10:00 07/30/24 10:22 40 MG Enoxaparin Sodium 40 mg DAILY SC 07/28/24 10:00 07/30/24 10:24 40 MG Enteral Nutritional Formula 1,000 ml 40ML/HR GT 07/28/24 11:30 Acetaminophen 650 mg Q4HP PRN PO 07/28/24 16:45 07/29/24 06:11 650 MG Sodium Bicarbonate 150 ml/Dextrose 1,150 ml @ 100 mls/hr [id number] IV 07/29/24 10:45 07/30/24 13:17 100 MLS/HR Vancomycin HCl 0 ml @ 0 mls/hr UD IV 07/29/24 16:00 Hold Piperacillin Sod/ Tazobactam Sod 100 ml @ 25 mls/hr Q12HR IV 07/29/24 22:00 07/30/24 10:39 25 MLS/HR Furosemide 40 mg DAILY IV 07/30/24 10:00 07/30/24 10:23 40 MG Examination: GENERAL:Abnormal, HEENT:Abnormal, LUNGS:Abnormal, CVS:Abnormal, ABDOMEN:Abnormal laboratory and microbiology Laboratory Tests 07/30/24 04:30 Test 07/30/24 04:30 Range/Units Serum Glucose 126 H 74-106 mg/dL Microbiology Date/Time Source Procedure Growth Status 07/28/24 17:30 Blood Blood Culture - Preliminary Resulted 07/28/24 17:00 Voided Urine Urine Culture - Preliminary Resulted 07/27/24 15:58 Nose MRSA Screen - Final Complete 07/27/24 00:00 Sputum Gram Stain - Final Complete 07/27/24 00:00 Respiratory Culture - Final Staphylococcus aureus Complete Problem List/Assessment/Plan Problem List/Assessment/Plan out of hospital cardiac arrest PATTI obesity new dx of CHF with systolic HF HTN PTX- chest tube placement recommend renal consult for olgiria 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 Continue EN formula Nepro @ goal-rate of 40 ml/hr via OGT 2. Provide minimal free water flushes of 50 ml Q4 (300 ml total) or per MD discretion; adjust PRN 3. Monitor BMP/lytes and replete to WNL/PRN 4. Obtain actual weight measurement as able (wt on file estimated) TF Provision: -> TF at goal to provide 960 ml total volume, 1728 kcal, 78 gm pro, 15 gm fiber, 154 gm CHO, 698 ml H20 (meets 100% est. kcal needs, 100% est. pro needs) Expected Outcomes/Goals: Improved nutritional status Date of Service: Jul 30, 2024 Billing Provider: SHIRA WALLS MD Common Visit Codes: NOT BILLABLE SHIRA WALLS MD Jul 30, 2024 14:02
[2024-07-30] MEDS: SODIUM BICARB 50mEq/50ml Vial 150 ML in D5W 5% 1,000 ML IV SCH ×2 (14:45→18:16)
--- NOTE | 2024-07-30 17:49 | DVHPN2 ---
Progress Note Date Seen: Jul 30, 2024 Has the PT tested + for MRSA If YES, has PT been informed?: Yes Medical Necessity Reason Pt with a Central, PICC or Fol: Yes The following are medically ne: Central Line, Tavarez Catheter Reason for tavarez catheter: Strict I&O Subjective Patient reports: Other Review of Systems: Deferred (Intubated) Objective vital signs Vital Sign Date Time Temp Pulse Resp B/P (MAP) Pulse Ox O2 Delivery O2 Flow Rate FiO2 07/30/24 17:30 98.1 87 20 108/40 (62) 100 208.6 99/36 (57) 07/30/24 16:15 30 07/30/24 16:00 Mechanical Ventilator+ Total Intake and Output 07/29/24 07/29/24 07/30/24 15:00 23:00 07:00 Intake Total 590.12 ml 1160.947 ml 1240.78 ml Output Total 410 ml 365 ml Balance 590.12 ml 750.947 ml 875.78 ml medications Current Medications Medications Dose Ordered Sig/Yovanny Route Start Time Stop Time Status Last Admin Dose Admin Norepinephrine Bitartrate 250 ml @ 3.75 mls/hr Q24H IV 07/27/24 00:00 07/27/24 23:55 3.75 MLS/HR Midazolam HCl 50 ml @ 1 mls/hr Q24H IV 07/27/24 01:00 07/30/24 11:54 4 MLS/HR Fentanyl Citrate 250 ml @ 2.5 mls/hr Q24H IV 07/27/24 01:00 07/30/24 11:57 12.5 MLS/HR Pantoprazole Sodium 40 mg DAILY IV 07/27/24 10:00 07/30/24 10:22 40 MG Enteral Nutritional Formula 1,000 ml 40ML/HR GT 07/28/24 11:30 Acetaminophen 650 mg Q4HP PRN PO 07/28/24 16:45 07/29/24 06:11 650 MG Vancomycin HCl 0 ml @ 0 mls/hr UD IV 07/29/24 16:00 Hold Piperacillin Sod/ Tazobactam Sod 100 ml @ 25 mls/hr Q12HR IV 07/29/24 22:00 07/30/24 10:39 25 MLS/HR Furosemide 40 mg DAILY IV 2/18/25 10:00 07/30/24 10:23 40 MG Sodium Bicarbonate 150 ml/Dextrose 1,150 ml @ 75 mls/hr [id number] IV 07/30/24 14:45 Examination: LUNGS:Abnormal, MSK:Abnormal, NEURO:Abnormal laboratory and microbiology Laboratory Tests 07/30/24 04:30 Test 07/30/24 04:30 Range/Units Serum Glucose 126 H 74-106 mg/dL Microbiology Date/Time Source Procedure Growth Status 07/28/24 17:30 Blood Blood Culture - Preliminary Resulted 07/28/24 17:00 Voided Urine Urine Culture - Preliminary Resulted 07/27/24 15:58 Nose MRSA Screen - Final Complete 07/27/24 00:00 Sputum Gram Stain - Final Complete 07/27/24 00:00 Respiratory Culture - Final Staphylococcus aureus Complete Problem List/Assessment/Plan Problem List/Assessment/Plan Acute kidney injury due to hypotension no previous ckd encephalopathy acute respiratory failure metabolic acidosis elevated troponins CHF EF 20% pneumothorax recs Continue bicarb drip, reduce rate acidosis getting better On diuretic to increase urine volumes and Congestive heart failure We will monitor renal function closely Neuro Plan discussed with: Other My Orders My Orders Orders - TANIKA WHITE MD Procedure Category Date Status Time D5 W Sodium PHA 07/30/24 Transmitted Bicarbonate Drip 18:00 Dietary Evaluation Review Comments: 1. Continue EN formula Nepro @ goal-rate of 40 ml/hr via OGT 2. Provide minimal free water flushes of 50 ml Q4 (300 ml total) or per MD discretion; adjust PRN 3. Monitor BMP/lytes and replete to WNL/PRN 4. Obtain actual weight measurement as able (wt on file estimated) TF Provision: -> TF at goal to provide 960 ml total volume, 1728 kcal, 78 gm pro, 15 gm fiber, 154 gm CHO, 698 ml H20 (meets 100% est. kcal needs, 100% est. pro needs) Expected Outcomes/Goals: Improved nutritional status TANIKA WIHTE MD Jul 30, 2024 17:49
--- NOTE | 2024-07-30 20:26 | DVHPN2 ---
Progress Note - Dictate Date Seen: Jul 30, 2024 Has the PT tested + for MRSA If YES, has PT been informed?: Yes Medical Necessity Reason Pt with a Central, PICC or Fol: Yes The following are medically ne: Central Line, Tavarez Catheter Reason for tavarez catheter: Strict I&O Subjective Ms. Cagle is a 83 years old female with a history of hypertension, coronary artery disease, heart attack, heart failure, kidney disease, the patient was brought to the [facility] on 07/26/2024 with a chief company of altered mental status, cataract arrest. I have seen and examined the patient, discussed with her nurse and other medical staff, the patient remained intubated, sedated, nonresponsive to stroke painful stimuli Fentanyl 125 mcg/hour ABG, 07/27/2024: Metabolic acidosis, 07/28/2024: Compensated metabolic acidosis, low oxygen CBC, 07/27/2024, metabolic acidosis, metabolic acidosis WBC/HB/PLT/MCV, 07/27/2024: 20.1/13.8/295/I 105, 07/28/2024: 22.1/13.1/212/102.8 In/CR,///1.37 TBI/AST/ALT/AP, 07/27/2024: 0.3/120/23/26, 07/28/2024: 0.2/91/43/53 TG/HDL/LDL/HDL, 07/27/24: 174/153/94/46 Venous Doppler, 08/01/2024: No DVT in the lower extremities CT head, 07/27/2024: 1. Mild chronic ischemic changes without evidence of acute intracranial process. 2. Mild upper cervical spinal canal stenosis. Consider follow-up noncontrast MRI of the cervical spine on an outpatient nonemergent basis once the patient's acute condition has resolved CT head, 07/29/2024: No acute intracranial abnormality (I saw evidence suggestive of diffuse ischemic brain injury. I have talked to Bill from Radiology to ask our radiologist to review the films again) vital signs Vital Sign Date Time Temp Pulse Resp B/P (MAP) Pulse Ox O2 Delivery O2 Flow Rate FiO2 07/30/24 19:15 97.9 84 20 109/41 (63) 100 208.2 104/33 (56) 07/30/24 18:00 Mechanical Ventilator+ 30 30 Total Intake and Output 07/29/24 07/29/24 07/30/24 15:00 23:00 07:00 Intake Total 590.12 ml 1160.947 ml 1240.78 ml Output Total 410 ml 365 ml Balance 590.12 ml 750.947 ml 875.78 ml medications Current Medications Medications Dose Ordered Sig/Yovanny Route Start Time Stop Time Status Last Admin Dose Admin Norepinephrine Bitartrate 250 ml @ 3.75 mls/hr Q24H IV 07/27/24 00:00 07/27/24 23:55 3.75 MLS/HR Midazolam HCl 50 ml @ 1 mls/hr Q24H IV 07/27/24 01:00 07/30/24 11:54 4 MLS/HR Fentanyl Citrate 250 ml @ 2.5 mls/hr Q24H IV 07/27/24 01:00 07/30/24 11:57 12.5 MLS/HR Pantoprazole Sodium 40 mg DAILY IV 07/27/24 10:00 07/30/24 10:22 40 MG Enteral Nutritional Formula 1,000 ml 40ML/HR GT 07/28/24 11:30 Acetaminophen 650 mg Q4HP PRN PO 07/28/24 16:45 07/29/24 06:11 650 MG Piperacillin Sod/ Tazobactam Sod 100 ml @ 25 mls/hr Q12HR IV 07/29/24 22:00 07/30/24 10:39 25 MLS/HR Furosemide 40 mg DAILY IV 07/30/24 10:00 07/30/24 10:23 40 MG Sodium Bicarbonate 150 ml/Dextrose 1,150 ml @ 50 mls/hr Q23H IV 07/30/24 18:00 07/30/24 18:16 50 MLS/HR objective The patient is well-nourished and well-developed with no distress. The patient is intubated MENTAL STATUS: Subjective CRANIAL NERVES: Pupils are equal, round and nonreactive, 3mm. There are weak corneal reflexes and doll's eyes phenomenon. No signs of facial weakness. There are no gagging or coughing reflexes SENSATION: No responses to pain stimuli. MOTOR: Normal tone in the upper and lower extremity. Normal muscle bulk. No fasciculations. No spontaneous movement. REFLEXES: Deep tendon reflexes are symmetrical. No pathological reflexes. CEREBELLAR/COORDINATION: Deferred GAIT/STATION: deferred. laboratory and microbiology Laboratory Tests 07/30/24 04:30 Test 07/30/24 04:30 Range/Units Serum Glucose 126 H 74-106 mg/dL Problem List Cardiopulmonary arrest with prolonged downtime Coma Hypoxic encephalopathy Metabolic encephalopathy Acute respiratory failure Myoclonic in bilateral face, left hand secondary to cardiopulmonary arrest Assessment/Plan Monitoring Supportive treatment ICU care EEG Follow-up lab test EEG ICU care Stabilize vitals/pressor drip Respiratory support/vent management Oxygen IV antibiotics Consider treat the myoclonus if indicated I have asked her radiologist to review the patient was CT scan again More recommendation per clinical course This medical document was created using an electronic medical record system with [employer] dictation system. Although this document has been carefully reviewed, there may still be some phonetic and typographical errors. These areas are purely typographical due to imperfections of the software programs, and do not reflect any compromise in the patient's medical care Prognosis guarded Dietary Evaluation Review Comments: 1. Continue EN formula Nepro @ goal-rate of 40 ml/hr via OGT 2. Provide minimal free water flushes of 50 ml Q4 (300 ml total) or per MD discretion; adjust PRN 3. Monitor BMP/lytes and replete to WNL/PRN 4. Obtain actual weight measurement as able (wt on file estimated) TF Provision: -> TF at goal to provide 960 ml total volume, 1728 kcal, 78 gm pro, 15 gm fiber, 154 gm CHO, 698 ml H20 (meets 100% est. kcal needs, 100% est. pro needs) Expected Outcomes/Goals: Improved nutritional status Plan discussed with: Other Critical Care Time(min): 35 ELSA RESENDEZ MD Jul 30, 2024 20:26
--- NOTE | 2024-07-30 21:08 | DVHPNRES ---
Progress Note Date Seen: Jul 30, 2024 Resident Creating Document: REAGAN VEE RESIDENT Has the PT tested + for MRSA If YES, has PT been informed?: Yes Medical Necessity Reason Pt with a Central, PICC or Fol: Yes The following are medically ne: Central Line, Tavarez Catheter Reason for tavarez catheter: Strict I&O Subjective Review of Systems Patient was examined at bedside, patient will need to continue bicarbonate drip, nephrology on board to continue monitoring renal function closely. Chest tube on place , we will closely monitor for signs of subcutaneous emphysema or oxygen desaturation, or any other changes on mechanical ventilation values, we will follow-up tomorrow in the morning with a x-ray to confirm chest tube is in place. Patient is currently under sedation, pressors were held. Regarding ventilatory settings, FiO2 went down until 30%, peep still on 3. Today's chest x-ray showed the endotracheal tube (ETT) is in satisfactory position. Enteric tube tip in the stomach. Patient gag reflex is absent ,currently on fentanyl 20, per neurology team they want the CT to be reviewed. Lines: bicarb drip amio drip fentanyl 25 drip zosyn Patient reports: Other Changes from previous H/P or p: No Changes Objective vital signs Vital Sign Date Time Temp Pulse Resp B/P (MAP) Pulse Ox O2 Delivery O2 Flow Rate FiO2 07/30/24 19:15 97.9 84 20 109/41 (63) 100 208.2 104/33 (56) 07/30/24 18:00 Mechanical Ventilator+ 30 30 Total Intake and Output 07/29/24 07/29/24 07/30/24 15:00 23:00 07:00 Intake Total 590.12 ml 1160.947 ml 1240.78 ml Output Total 410 ml 365 ml Balance 590.12 ml 750.947 ml 875.78 ml medications Current Medications Medications Dose Ordered Sig/Yovanny Route Start Time Stop Time Status Last Admin Dose Admin Norepinephrine Bitartrate 250 ml @ 3.75 mls/hr Q24H IV 07/27/24 00:00 07/27/24 23:55 3.75 MLS/HR Midazolam HCl 50 ml @ 1 mls/hr Q24H IV 07/27/24 01:00 07/30/24 11:54 4 MLS/HR Fentanyl Citrate 250 ml @ 2.5 mls/hr Q24H IV 07/27/24 01:00 07/30/24 11:57 12.5 MLS/HR Pantoprazole Sodium 40 mg DAILY IV 07/27/24 10:00 07/30/24 10:22 40 MG Enteral Nutritional Formula 1,000 ml 40ML/HR GT 07/28/24 11:30 Acetaminophen 650 mg Q4HP PRN PO 07/28/24 16:45 07/29/24 06:11 650 MG Piperacillin Sod/ Tazobactam Sod 100 ml @ 25 mls/hr Q12HR IV 07/29/24 22:00 07/30/24 10:39 25 MLS/HR Furosemide 40 mg DAILY IV 07/30/24 10:00 07/30/24 10:23 40 MG Sodium Bicarbonate 150 ml/Dextrose 1,150 ml @ 50 mls/hr Q23H IV 07/30/24 18:00 07/30/24 18:16 50 MLS/HR Examination The patient is well-nourished and well-developed with no distress. The patient is intubated MENTAL STATUS: Subjective CRANIAL NERVES: Pupils are equal, round and nonreactive, 3mm. There are weak corneal reflexes and doll's eyes phenomenon. No signs of facial weakness. There are no gagging or coughing reflexes SENSATION: No responses to pain stimuli. MOTOR: Normal tone in the upper and lower extremity. Normal muscle bulk. No fasciculations. No spontaneous movement. REFLEXES: Deep tendon reflexes are symmetrical. No pathological reflexes. CEREBELLAR/COORDINATION: Deferred GAIT/STATION: deferred. General appearance: Intubated, sedated, unresponsive Pupils fixed and dilated bilaterally. Peripheral mottling and cyanosis in extremities Intrajugular central line and left femoral arterial line in place HEENT: Pupils fixed and dilated, nonreactive. No facial trauma Neurological: Unresponsive to all stimuli. Absent gag reflex rass -4 Cardiovascular: Regular rate and rhythm, no murmurs or gallops. Cold extremities, poor perfusion, mottling. Diminished pulses Pulmonary: Intubated, ventilator dependent Breath sounds diminished in the right. Abdomen: Soft nontender. Hypoactive bowel sounds. Extremities: No edema. Mottled, cyanotic appearance on distal extremities Skin: No rashes laboratory and microbiology Laboratory Tests 07/30/24 04:30 Test 07/30/24 04:30 Range/Units Serum Glucose 126 H 74-106 mg/dL Microbiology Date/Time Source Procedure Growth Status 07/28/24 17:30 Blood Blood Culture - Preliminary Resulted 07/28/24 17:00 Voided Urine Urine Culture - Preliminary Resulted 07/27/24 15:58 Nose MRSA Screen - Final Complete 07/27/24 00:00 Sputum Gram Stain - Final Complete 07/27/24 00:00 Respiratory Culture - Final Staphylococcus aureus Complete Problem List/Assessment/Plan Problem List/Assessment/Plan Neurological: #Acute hypoxic encephalopathy due to cardiac arrest #S/P Cardiac arrest #Mild upper cervical spinal canal stenosis #?Cerebral edema CPR for 15 min Neurology consult RASS -4 Fentanyl 25 Neurologic prognosis is very poor ct head , to be reviewed, r/o cerebral edema gag reflex absent Cardiovascular: #Cardiac/Septic shock #S/P Cardiac arrest: PEA #H/o CAD #Acute on chronic heart failure with reduced ejection fraction 25%, NYHA III-IV likely due to septic shock #Severe global dysfunction #Moderate pulmonary hypertension #Biatrial enlargement Lasix limited response amio drip continue IV atb Pulmonary #Acute hypoxic respiratory failure due to cardiac arrest #s/p intubation #Multiple right rib fractures # right lateral pneumothorax #Right subcutaneous emphysema due to fractures #Probably aspiration pneumonia Chest tube placement Chest x-ray ABG Continue antibiotics GI PPI prophylaxis: Protonix IV Renal #PATTI s/p cardiac arrest #Hypercalcemia #Lactic acidosis Start sodium bicarbonate drip due to acidosis keep MAP > 65 strict I/O Lasix 40 IV daily Endocrinology A1c 5.4 TSH wnl Lines Left IJV central line 07/27/2024 Left femoral arterial line 07/27/2024 Ventilator settings: Settings: Tidal volume: 400 FiO2:30% Ventilatory support mode: AC Ventilator as appropriate rate: 20 beats per minute Peep: 3 cm Mandatory sensitivity: 2.[address] Kiser Time spent on critical care 81 min Full code, family updated Plan discussed with: Daughter My Orders My Orders Orders - REAGAN VEE RESIDENT Procedure Category Date Status Time Blood Culture NELY 07/30/24 In Process 19:05 Chest Portable XY 07/31/24 Logged 06:00 Abg W/ Co-Ox RT 07/31/24 Logged 06:00 Dietary Evaluation Review Comments: 1. Continue EN formula Nepro @ goal-rate of 40 ml/hr via OGT 2. Provide minimal free water flushes of 50 ml Q4 (300 ml total) or per MD discretion; adjust PRN 3. Monitor BMP/lytes and replete to WNL/PRN 4. Obtain actual weight measurement as able (wt on file estimated) TF Provision: -> TF at goal to provide 960 ml total volume, 1728 kcal, 78 gm pro, 15 gm fiber, 154 gm CHO, 698 ml H20 (meets 100% est. kcal needs, 100% est. pro needs) Expected Outcomes/Goals: Improved nutritional status Date of Service: Jul 30, 2024 Billing Provider: ANITA KISER MD Common Visit Codes: [id number] CARE 30-74 MIN, [id number] CARE-EACH +30MIN REAGAN VEE RESIDENT Jul 30, 2024 21:08 ANITA KISER MD Jul 31, 2024 15:15
--- NOTE | 2024-07-30 21:40 | DVHEEG2 ---
Neurology EEG Procedural Note Procedural Note EXAM DATE: 07/29/2024 REFERRING DOCTOR: Dr. Resendez TECHNIQUE: Eighteen channels of EEG, 2 channels of EOG, and 1 channel of EKG were recorded using the International 10/20 system. CLINICAL DATA: The patient was referred for an EEG evaluation for the evidence of seizure disorder. MEDICATIONS: See chart BACKGROUND ACTIVITY: This EEG record is full of environmental artifacts which blocked brain wave forms ACTIVATION: Hyperventilation: Not done Photic Stimulation: Not done Sleep: Unresponsiveness IMPRESSION: This is an inadequate/nondiagnostic EEG, if clinically indicated to rule out seizure disorder, please consider follow up EEG study The EKG channel showed a regular heart rate of 108/[place] [address]. ELSA RESENDEZ MD Jul 30, 2024 21:40
[2024-07-31] VITALS (101 sets, daily range): BP systolic 94–153; BP diastolic 36–62; PULSE 82–111; RESP 15–21; TEMP 97–98.4; O2SAT 97–100
--- NOTE | 2024-07-31 05:18 | DVH ---
EXAM: XR Chest, 1 View CLINICAL INDICATION: CHEST TUBE/ETT/INTUBATED TECHNIQUE: Frontal view of the chest. COMPARISON: XY CHEST PORTABLE on DOS: 07/30/24, XY CHEST XRAY 1 VIEW on DOS: 07/29/24, XY CHEST ALEXYS BLE on DOS: 07/29/24, XY CHEST PORTABLE on DOS: 07/29/24, XY CHEST PORTABLE on DOS: 07/28/24 FINDINGS: LUNGS AND PLEURAL SPACES: See below. HEART: Cardiomegaly with mild congestion. MEDIASTINUM: Unremarkable. Normal mediastinal contour. BONES/JOINTS: Unremarkable. No acute fracture. TUBES, LINES AND DEVICES: Stable tubes and lines. Right-sided chest tube, stable. No pneumothorax . OTHER FINDINGS: . None. . . IMPRESSION: 1. Cardiomegaly with mild congestion. 2. Right-sided chest tube, stable. No pneumothorax.
[2024-07-31 08:06] LABS: Base Excess 2.1 mmol/L (-2.0-3.0)
--- NOTE | 2024-07-31 09:08 | DVHPN2 ---
Progress Note - Dictate Date Seen: Jul 31, 2024 Has the PT tested + for MRSA If YES, has PT been informed?: Yes Medical Necessity Reason Pt with a Central, PICC or Fol: Yes The following are medically ne: Central Line, Tavarez Catheter Reason for tavarez catheter: Strict I&O Subjective Ms. Cagle is a 83 years old female with a history of hypertension, coronary artery disease, heart attack, heart failure, kidney disease, the patient was brought to the [facility] on 07/26/2024 with a chief company of altered mental status, cataract arrest. I have seen and examined the patient, discussed with her nurse and other medical staff, the patient remained intubated, sedated, nonresponsive to strong painful stimuli, but the light reflexes and doll's eye phenomena are better. Still has no gag reflexes I have appreciated Radiology input, IV follow-up imaging with MRI brain scan She has been off sedation since 07/30/2024 2300 ABG, 07/27/2024: Metabolic acidosis, 07/28/2024: Compensated metabolic acidosis, low oxygen CBC, 07/27/2024, metabolic acidosis, metabolic acidosis WBC/HB/PLT/MCV, 07/27/2024: 20.1/13.8/295/I 105, 07/28/2024: 22.1/13.1/212/102.8 In/CR,///1.37 TBI/AST/ALT/AP, 07/27/2024: 0.3/120/23/26, 07/28/2024: 0.2/91/43/53 TG/HDL/LDL/HDL, 07/27/24: 174/153/94/46 Venous Doppler, 08/01/2024: No DVT in the lower extremities CT head, 07/27/2024: 1. Mild chronic ischemic changes without evidence of acute intracranial process. 2. Mild upper cervical spinal canal stenosis. Consider follow-up noncontrast MRI of the cervical spine on an outpatient nonemergent basis once the patient's acute condition has resolved CT head, 07/29/2024: Ventricles are very minimally less prominent in size when compared to the prior exam. No intracranial hemorrhage or extra-axial fluid collections. No subdural hematoma. Stable victorino ventricular patchy white matter hypoattenuation most likely related to small vessel ischemic changes. MRI recommended if clinical symptoms persist or worsen vital signs Vital Sign Date Time Temp Pulse Resp B/P (MAP) Pulse Ox O2 Delivery O2 Flow Rate FiO2 07/31/24 08:15 84 20 120/50 (73) 98 30 07/31/24 07:45 97.7 207.9 07/31/24 06:00 Mechanical Ventilator+ Total Intake and Output 07/30/24 07/30/24 07/31/24 14:59 22:59 06:59 Intake Total 1065.28 ml 908.28 ml 690.28 ml Output Total 550 ml 350 ml Balance 1065.28 ml 358.28 ml 340.28 ml medications Current Medications Medications Dose Ordered Sig/Yovanny Route Start Time Stop Time Status Last Admin Dose Admin Norepinephrine Bitartrate 250 ml @ 3.75 mls/hr Q24H IV 07/27/24 00:00 07/27/24 23:55 3.75 MLS/HR Midazolam HCl 50 ml @ 1 mls/hr Q24H IV 07/27/24 01:00 07/30/24 11:54 4 MLS/HR Fentanyl Citrate 250 ml @ 2.5 mls/hr Q24H IV 07/27/24 01:00 07/30/24 11:57 12.5 MLS/HR Pantoprazole Sodium 40 mg DAILY IV 07/27/24 10:00 07/30/24 10:22 40 MG Enteral Nutritional Formula 1,000 ml 40ML/HR GT 07/28/24 11:30 Acetaminophen 650 mg Q4HP PRN PO 07/28/24 16:45 07/29/24 06:11 650 MG Piperacillin Sod/ Tazobactam Sod 100 ml @ 25 mls/hr Q12HR IV 07/29/24 22:00 07/30/24 21:41 25 MLS/HR Furosemide 40 mg DAILY IV 07/30/24 10:00 07/30/24 10:23 40 MG Sodium Bicarbonate 150 ml/Dextrose 1,150 ml @ 50 mls/hr Q23H IV 07/30/24 18:00 07/31/24 06:00 50 MLS/HR objective The patient is well-nourished and well-developed with no distress. The patient is intubated MENTAL STATUS: Subjective CRANIAL NERVES: Pupils are equal, round and reactive. There are weak corneal reflexes and doll's eyes phenomenon. No signs of facial weakness. There are no gagging or coughing reflexes SENSATION: No responses to pain stimuli. MOTOR: Normal tone in the upper and lower extremity. Normal muscle bulk. No fasciculations. No spontaneous movement. REFLEXES: Deep tendon reflexes are symmetrical. No pathological reflexes. CEREBELLAR/COORDINATION: Deferred GAIT/STATION: deferred. laboratory and microbiology Laboratory Tests 07/30/24 04:30 Test 07/30/24 04:30 Range/Units Serum Glucose 126 H 74-106 mg/dL Problem List Cardiopulmonary arrest with prolonged downtime Coma Hypoxic encephalopathy Metabolic encephalopathy Acute respiratory failure Myoclonic in bilateral face, left hand secondary to cardiopulmonary arrest Assessment/Plan Monitoring Supportive treatment ICU care Follow-up lab test MRI head ICU care Stabilize vitals/pressor drip Respiratory support/vent management Oxygen IV antibiotics More recommendation per clinical course This medical document was created using an electronic medical record system with [employer] dictation system. Although this document has been carefully reviewed, there may still be some phonetic and typographical errors. These areas are purely typographical due to imperfections of the software programs, and do not reflect any compromise in the patient's medical care Prognosis guarded Dietary Evaluation Review Comments: 1. Continue EN formula Nepro @ goal-rate of 40 ml/hr via OGT 2. Provide minimal free water flushes of 50 ml Q4 (300 ml total) or per MD discretion; adjust PRN 3. Monitor BMP/lytes and replete to WNL/PRN 4. Obtain actual weight measurement as able (wt on file estimated) TF Provision: -> TF at goal to provide 960 ml total volume, 1728 kcal, 78 gm pro, 15 gm fiber, 154 gm CHO, 698 ml H20 (meets 100% est. kcal needs, 100% est. pro needs) Expected Outcomes/Goals: Improved nutritional status Plan discussed with: Other Critical Care Time(min): 35 ELSA RESENDEZ MD Jul 31, 2024 09:08
[2024-07-31 10:50] LABS: Basophils # (auto) 0 10 ^3/uL (0-0.2); Basophils % (auto) 0.2 % (0.0-2.0); Eosinophils # (auto) 0.3 10 ^3/uL (0-0.8); Hemoglobin 8.2 g/dL (12.2-16.2); Mean Corpuscular Hemoglobin 33.1 pg (28.0-32.0); Platelet Count (auto) 179 10^3/uL (140-450)
[2024-07-31 10:52] LABS: Eosinophils % (auto) 2.2 % (0.0-7.0); Hematocrit 24.1 % (36.0-46.0); Lymphocytes # (auto) 0.7 10 ^3/uL (0.4-5.4); Lymphocytes % (auto) 5.4 % (10.0-50.0); Mean Corpuscular Volume 97.5 fL (80.0-100.0); Monocytes % (auto) 7.3 % (0.0-12.0); Neutrophils # (auto) 11.2 10 ^3/uL (1.6-8.6); Neutrophils % (auto) 84.9 % (37.0-80.0); Nucleated Red Blood Cells % 0.1 %; Red Blood Cells 2.47 10^6/uL (4.0-5.20); Red Cell Distribution Width 13.8 % (11.8-14.3); White Blood Cell 13.2 10^3/uL (4.4-10.8)
[2024-07-31 11:01] LABS: Anion Gap 12 (5-15); Carbon Dioxide 27 mmol/L (20-31)
[2024-07-31 11:15] LABS: Blood Urea Nitrogen 64 mg/dL (9-23); Calcium 8.1 mg/dL (8.7-10.4); Chloride 95 mmol/L (98-107); Glucose 123 mg/dL (74-106); Sodium 134 mmol/L (136-145)
--- NOTE | 2024-07-31 11:46 | DVH ---
PROCEDURE: MRI BRAIN HEAD WO CONTRAST INDICATION: Coma EXAM DATE: 07/31/2024 11:04 AM COMPARISON: None TECHNIQUE: MRI of the brain without intravenous contrast. FINDINGS: Diffusion weighted images of the brain demonstrate no evidence of acute infarction. There is no evidence of acute intracranial hemorrhage, extra-axial collection, mass effect, midline s hift, herniation or hydrocephalus. The ventricles, sulci and cisterns appear age appropriate. Mild changes of chronic microvascular ischemic disease. No abnormality on susceptibility weighted imaging. The major vascular flow voids are present. There is opacification of the bilateral mastoid air cells. The surrounding soft tissues and osseous structures are unremarkable. IMPRESSION: 1. No evidence of acute infarction, intracranial hemorrhage, mass effect or hydrocephalus. Mild mccain es of chronic microvascular ischemic disease. Bilateral mastoid effusions. HS:Y
[2024-07-31] MEDS ORDERED: POTASSIUM CHLORIDE 20 MEQ, LIDOCAINE 1% (LOCAL ANESTH.) 2 ML in SODIUM CHL 0.9% 100 ML IV ONE (14:00)
[2024-07-31] MEDS ORDERED: FUROSEMIDE 40 MG/4 ML VIAL IV SCH (14:00)
[2024-07-31] MEDS ORDERED: POTASSIUM EFFERVESENT TAB 25 MEQ GT ONE (14:00)
--- NOTE | 2024-07-31 15:35 | DVHPN2 ---
Progress Note Date Seen: Jul 31, 2024 Has the PT tested + for MRSA If YES, has PT been informed?: Yes Medical Necessity Reason Pt with a Central, PICC or Fol: Yes The following are medically ne: Central Line, Tavarez Catheter Reason for tavarez catheter: Strict I&O Subjective Other Systems: mri done pt seen by neuro Objective vital signs Vital Sign Date Time Temp Pulse Resp B/P (MAP) Pulse Ox O2 Delivery O2 Flow Rate FiO2 07/31/24 14:15 87 20 131/48 (75) 98 107/52 (70) 07/31/24 14:13 30 07/31/24 14:00 Mechanical Ventilator+ 07/31/24 12:00 97.0 97.0 Total Intake and Output 07/30/24 07/30/24 07/31/24 15:00 23:00 07:00 Intake Total 1040.28 ml 891.78 ml 665.28 ml Output Total 550 ml 350 ml Balance 1040.28 ml 341.78 ml 315.28 ml medications Current Medications Medications Dose Ordered Sig/Yovanny Route Start Time Stop Time Status Last Admin Dose Admin Norepinephrine Bitartrate 250 ml @ 3.75 mls/hr Q24H IV 07/27/24 00:00 07/27/24 23:55 3.75 MLS/HR Midazolam HCl 50 ml @ 1 mls/hr Q24H IV 07/27/24 01:00 07/30/24 11:54 4 MLS/HR Fentanyl Citrate 250 ml @ 2.5 mls/hr Q24H IV 07/27/24 01:00 07/30/24 11:57 12.5 MLS/HR Pantoprazole Sodium 40 mg DAILY IV 07/27/24 10:00 07/31/24 10:20 40 MG Enteral Nutritional Formula 1,000 ml 40ML/HR GT 07/28/24 11:30 Acetaminophen 650 mg Q4HP PRN PO 07/28/24 16:45 07/29/24 06:11 650 MG Piperacillin Sod/ Tazobactam Sod 100 ml @ 25 mls/hr Q12HR IV 07/29/24 22:00 07/31/24 10:20 25 MLS/HR Furosemide 60 mg BID IV 07/31/24 22:00 UNV Examination: GENERAL:Abnormal, HEENT:Abnormal, LUNGS:Abnormal, CVS:Abnormal, ABDOMEN:Abnormal laboratory and microbiology Laboratory Tests 07/31/24 10:15 Test 07/31/24 10:15 Range/Units Serum Glucose 123 H 74-106 mg/dL Microbiology Date/Time Source Procedure Growth Status 07/28/24 17:30 Blood Blood Culture - Final Staphylococcus epidermidis Complete 07/28/24 17:00 Voided Urine Urine Culture - Preliminary Resulted 07/27/24 15:58 Nose MRSA Screen - Final Complete 07/27/24 00:00 Sputum Gram Stain - Final Complete 07/27/24 00:00 Respiratory Culture - Final Staphylococcus aureus Complete Problem List/Assessment/Plan Problem List/Assessment/Plan out of hospital cardiac arrest PATTI obesity new dx of CHF with systolic HF HTN PTX- chest tube placement recommend renal consult for olgiria probable need for [employer] iv lasix, limited response neuro consult pulm eval for intubation--thoracentesis and chest tube poor UOP cont tele afib---on amio gtt mostlySR poor prognosis dc amio gtt now renal failure--creat worsening, Plan discussed with: Other (rn) Dietary Evaluation Review Comments: 1. Continue EN formula Nepro @ goal-rate of 40 ml/hr via OGT 2. Provide minimal free water flushes of 50 ml Q4 (300 ml total) or per MD discretion; adjust PRN 3. Monitor BMP/lytes and replete to WNL/PRN 4. Obtain actual weight measurement as able (wt on file estimated) TF Provision: -> TF at goal to provide 960 ml total volume, 1728 kcal, 78 gm pro, 15 gm fiber, 154 gm CHO, 698 ml H20 (meets 100% est. kcal needs, 100% est. pro needs) Expected Outcomes/Goals: Improved nutritional status Date of Service: Jul 31, 2024 Billing Provider: SHIRA WALLS MD Common Visit Codes: NOT BILLABLE SHIRA WALLS MD Jul 31, 2024 15:35
[2024-07-31] MEDS: POTASSIUM CHL 20MEQ/100ML 100 ML IV ONE (18:40)
--- NOTE | 2024-07-31 18:48 | DVHPN2 ---
Progress Note Date Seen: Jul 31, 2024 Has the PT tested + for MRSA If YES, has PT been informed?: Yes Medical Necessity Reason Pt with a Central, PICC or Fol: Yes The following are medically ne: Central Line, Tavarez Catheter Reason for tavarez catheter: Strict I&O Subjective Patient reports: Other (Intubated) Review of Systems: Deferred Objective vital signs Vital Sign Date Time Temp Pulse Resp B/P (MAP) Pulse Ox O2 Delivery O2 Flow Rate FiO2 07/31/24 18:00 20 98 Mechanical Ventilator+ 30 30 07/31/24 18:00 102 07/31/24 16:10 127/47 (73) 07/31/24 12:00 97.0 97.0 Total Intake and Output 07/30/24 07/30/24 07/31/24 15:00 23:00 07:00 Intake Total 1040.28 ml 891.78 ml 665.28 ml Output Total 550 ml 350 ml Balance 1040.28 ml 341.78 ml 315.28 ml medications Current Medications Medications Dose Ordered Sig/Yovanny Route Start Time Stop Time Status Last Admin Dose Admin Norepinephrine Bitartrate 250 ml @ 3.75 mls/hr Q24H IV 07/27/24 00:00 07/27/24 23:55 3.75 MLS/HR Midazolam HCl 50 ml @ 1 mls/hr Q24H IV 07/27/24 01:00 07/30/24 11:54 4 MLS/HR Fentanyl Citrate 250 ml @ 2.5 mls/hr Q24H IV 07/27/24 01:00 07/30/24 11:57 12.5 MLS/HR Pantoprazole Sodium 40 mg DAILY IV 07/27/24 10:00 07/31/24 10:20 40 MG Enteral Nutritional Formula 1,000 ml 40ML/HR GT 07/28/24 11:30 Acetaminophen 650 mg Q4HP PRN PO 07/28/24 16:45 07/29/24 06:11 650 MG Piperacillin Sod/ Tazobactam Sod 100 ml @ 25 mls/hr Q12HR IV 07/29/24 22:00 07/31/24 10:20 25 MLS/HR Furosemide 60 mg BID IV 07/31/24 22:00 Examination: GENERAL:Abnormal, CVS:Abnormal, MSK:Abnormal, NEURO:Abnormal laboratory and microbiology Laboratory Tests 07/31/24 10:15 Test 07/31/24 10:15 Range/Units Serum Glucose 123 H 74-106 mg/dL Microbiology Date/Time Source Procedure Growth Status 07/28/24 17:30 Blood Blood Culture - Final Staphylococcus epidermidis Complete 07/28/24 17:00 Voided Urine Urine Culture - Preliminary Resulted 07/27/24 15:58 Nose MRSA Screen - Final Complete 07/27/24 00:00 Sputum Gram Stain - Final Complete 07/27/24 00:00 Respiratory Culture - Final Staphylococcus aureus Complete Problem List/Assessment/Plan Problem List/Assessment/Plan Acute kidney injury due to hypotension no previous ckd encephalopathy acute respiratory failure metabolic acidosis elevated troponins CHF EF 20% pneumothorax recs DC bicarb drip Lasix IV b.i.d. as ordered K replace p.r.n. We will monitor renal function closely Neuro eval ongoing Remains nonoliguric past 24 hours Plan discussed with: Other Dietary Evaluation Review Comments: 1. Continue EN formula Nepro @ goal-rate of 40 ml/hr via OGT 2. Provide minimal free water flushes of 50 ml Q4 (300 ml total) or per MD discretion; adjust PRN 3. Monitor BMP/lytes and replete to WNL/PRN 4. Obtain actual weight measurement as able (wt on file estimated) TF Provision: -> TF at goal to provide 960 ml total volume, 1728 kcal, 78 gm pro, 15 gm fiber, 154 gm CHO, 698 ml H20 (meets 100% est. kcal needs, 100% est. pro needs) Expected Outcomes/Goals: Improved nutritional status TANIKA WHITE MD Jul 31, 2024 18:48
--- NOTE | 2024-07-31 20:09 | DVHPNRES ---
Progress Note Date Seen: Jul 31, 2024 Resident Creating Document: REAGAN VEE RESIDENT Has the PT tested + for MRSA If YES, has PT been informed?: Yes Medical Necessity Reason Pt with a Central, PICC or Fol: Yes The following are medically ne: Central Line, Tavarez Catheter Reason for tavarez catheter: Strict I&O Subjective Review of Systems Patient was examined at bedside, patient continue on mechanical ventilation, not on pressors/sedation. Patient still not moving, no gag reflex. small amount of oral secretions, creamy pink tinged. Right and left erythema under the breast . CXR showed chest tube on placed, flushed with 20 ml NS. WBC improving, Renal function getting worse, nephrology has evaluated the patient today , furosemide increased until 60mg IV BID, bicarb drip stopped amio drip was stopped. MRI was evaluated by neurology team, the patient remained intubated, sedated, nonresponsive to strong painful stimuli, but the light reflexes and doll's eye phenomena are better. Still has no gag reflexes Waiting for radiology input, Patient reports: Other (intubated) Changes from previous H/P or p: No Changes Objective vital signs Vital Sign Date Time Temp Pulse Resp B/P (MAP) Pulse Ox O2 Delivery O2 Flow Rate FiO2 07/31/24 18:47 102 20 138/48 (78) 100 30 07/31/24 18:45 98.1 208.6 07/31/24 18:00 Mechanical Ventilator+ Total Intake and Output 07/30/24 07/30/24 07/31/24 15:00 23:00 07:00 Intake Total 1040.28 ml 891.78 ml 665.28 ml Output Total 550 ml 350 ml Balance 1040.28 ml 341.78 ml 315.28 ml medications Current Medications Medications Dose Ordered Sig/Yovanny Route Start Time Stop Time Status Last Admin Dose Admin Norepinephrine Bitartrate 250 ml @ 3.75 mls/hr Q24H IV 07/27/24 00:00 07/27/24 23:55 3.75 MLS/HR Midazolam HCl 50 ml @ 1 mls/hr Q24H IV 07/27/24 01:00 07/30/24 11:54 4 MLS/HR Fentanyl Citrate 250 ml @ 2.5 mls/hr Q24H IV 07/27/24 01:00 07/30/24 11:57 12.5 MLS/HR Pantoprazole Sodium 40 mg DAILY IV 07/27/24 10:00 07/31/24 10:20 40 MG Enteral Nutritional Formula 1,000 ml 40ML/HR GT 07/28/24 11:30 Acetaminophen 650 mg Q4HP PRN PO 07/28/24 16:45 07/29/24 06:11 650 MG Piperacillin Sod/ Tazobactam Sod 100 ml @ 25 mls/hr Q12HR IV 07/29/24 22:00 07/31/24 10:20 25 MLS/HR Furosemide 60 mg BID IV 07/31/24 22:00 Examination General appearance: Intubated, sedated, unresponsive Pupils sluggish 3mm Peripheral mottling and cyanosis in extremities Intrajugular central line and left femoral arterial line in place Neurological: Unresponsive to all stimuli. Absent gag reflex rass -4 Cardiovascular: Regular rate and rhythm, no murmurs or gallops. Diminished pulses Pulmonary: Intubated, ventilator dependent Breath sounds diminished in the right. Abdomen: Soft nontender. Hypoactive bowel sounds. Extremities: No edema. no cyanosis Skin: rash below the breast bilaterally laboratory and microbiology Laboratory Tests 07/31/24 10:15 Test 07/31/24 10:15 Range/Units Serum Glucose 123 H 74-106 mg/dL Microbiology Date/Time Source Procedure Growth Status 07/28/24 17:30 Blood Blood Culture - Final Staphylococcus epidermidis Complete 07/28/24 17:00 Voided Urine Urine Culture - Preliminary Resulted 07/27/24 15:58 Nose MRSA Screen - Final Complete 07/27/24 00:00 Sputum Gram Stain - Final Complete 07/27/24 00:00 Respiratory Culture - Final Staphylococcus aureus Complete Problem List/Assessment/Plan Problem List/Assessment/Plan Neurological: #Acute hypoxic encephalopathy due to cardiac arrest #S/P Cardiac arrest #Mild upper cervical spinal canal stenosis #?Cerebral edema CPR for 15 min Neurology consult RASS -4 Fentanyl 25 Neurologic prognosis is very poor MRI , to be reviewed, r/o cerebral edema gag reflex absent Cardiovascular: #Cardiac/Septic shock #S/P Cardiac arrest: AEP #H/o CAD #Acute on chronic heart failure with reduced ejection fraction 25%, NYHA III-IV likely due to septic shock #Severe global dysfunction #Moderate pulmonary hypertension #Biatrial enlargement Lasix 60 IV BID amio drip,stopped continue IV atb Pulmonary #Acute hypoxic respiratory failure due to cardiac arrest s/p intubation #Multiple right rib fractures # right lateral pneumothorax S/P chest tube placement #Right subcutaneous emphysema due to fractures #Probably aspiration pneumonia Chest tube placement, 30 ml serosanguineous Chest x-ray ABG Continue antibiotics GI PPI prophylaxis: Protonix IV Renal #PATTI s/p cardiac arrest #Hypercalcemia #Lactic acidosis Start sodium bicarbonate drip due to acidosis,stopped keep MAP > 65 strict I/O Lasix 60 IV BID Endocrinology A1c 5.4 TSH wnl Lines Left IJV central line 07/27/2024 Left femoral arterial line 07/27/2024 Ventilator settings: Tidal volume: 400 FiO2:30% Ventilatory support mode: AC Ventilator as appropriate rate: 20 beats per minute Peep: 3 cm Case discussed with Dr. Kiser Time spent on critical care excluding procedures including dw family was 82 min dnr/dni Plan discussed with: Daughter Dietary Evaluation Review Comments: 1. Continue EN formula Nepro @ goal-rate of 40 ml/hr via OGT 2. Provide minimal free water flushes of 50 ml Q4 (300 ml total) or per MD discretion; adjust PRN 3. Monitor BMP/lytes and replete to WNL/PRN 4. Obtain actual weight measurement as able (wt on file estimated) TF Provision: -> TF at goal to provide 960 ml total volume, 1728 kcal, 78 gm pro, 15 gm fiber, 154 gm CHO, 698 ml H20 (meets 100% est. kcal needs, 100% est. pro needs) Expected Outcomes/Goals: Improved nutritional status Date of Service: Jul 31, 2024 Billing Provider: ANITA KISER MD Common Visit Codes: [id number] CARE 30-74 MIN, [id number] CARE-EACH +30MIN REAGAN VEE Jul 31, 2024 20:08 ANITA KISER MD Aug 01, 2024 11:38
[2024-07-31] MEDS: FUROSEMIDE 40 MG/4 ML VIAL IV SCH (21:56)
[2024-08-01] VITALS (106 sets, daily range): BP systolic 106–206; BP diastolic 33–98; PULSE 79–113; RESP 10–26; TEMP 97.3–98.6; O2SAT 96–100
--- NOTE | 2024-08-01 05:22 | DVH ---
EXAM: XR Cervical Spine, 6 or More Views CLINICAL INDICATION: intubated TECHNIQUE: Frontal, lateral, oblique and flexion/extension views of the cervical spine. COMPARISON: XY CHEST PORTABLE on DOS: 07/31/24, XY CHEST PORTABLE on DOS: 07/30/24, XY CHEST XRAY 1 V IEW on DOS: 07/29/24, XY CHEST PORTABLE on DOS: 07/29/24, XY CHEST PORTABLE on DOS: 07/29/24 FINDINGS: VERTEBRAE: Unremarkable. No acute fracture. Normal alignment. No instability. DISC SPACES: No acute findings. No significant narrowing. SOFT TISSUES: Unremarkable. PLEURAL SPACE: Mild congestive heart failure. Bilateral pleural effusions, greater on the right. TUBES, LINES AND DEVICES: The endotracheal tube (ETT) is in satisfactory position. Left internal j ugular central venous catheter tip in the superior vena cava. Right basilar chest tube. OTHER FINDINGS: . None. ... IMPRESSION: Mild congestive heart failure. Bilateral pleural effusions, greater on the right.
[2024-08-01 05:42] LABS: Basophils # (auto) 0 10 ^3/uL (0-0.2); Hemoglobin 8.4 g/dL (12.2-16.2); Lymphocytes # (auto) 0.6 10 ^3/uL (0.4-5.4); White Blood Cell 10.7 10^3/uL (4.4-10.8)
[2024-08-01 05:45] LABS: Basophils % (auto) 0.1 % (0.0-2.0); Eosinophils # (auto) 0.2 10 ^3/uL (0-0.8); Eosinophils % (auto) 1.9 % (0.0-7.0); Hematocrit 24.3 % (36.0-46.0); Lymphocytes % (auto) 5.6 % (10.0-50.0); Mean Corpuscular Hemoglobin 33.8 pg (28.0-32.0); Mean Corpuscular Hgb Conc. 34.6 g/dL (32.0-36.0); Mean Corpuscular Volume 97.6 fL (80.0-100.0); Monocytes # (auto) 0.8 10 ^3/uL (0-1.3); Monocytes % (auto) 7.7 % (0.0-12.0); Neutrophils # (auto) 9.1 10 ^3/uL (1.6-8.6); Neutrophils % (auto) 84.7 % (37.0-80.0); Nucleated Red Blood Cells % 0.1 %; Platelet Count (auto) 197 10^3/uL (140-450); Red Blood Cells 2.49 10^6/uL (4.0-5.20); Red Cell Distribution Width 13.5 % (11.8-14.3)
[2024-08-01 05:58] LABS: Alanine Aminotransferase 22 U/L (7-40); Alkaline Phosphatase 115 U/L (46-116); Anion Gap 12 (5-15); BUN/Creatinine Ratio 14.3 (10.0-20.0); Calcium 8.9 mg/dL (8.7-10.4); Carbon Dioxide 27 mmol/L (20-31)
[2024-08-01 05:59] LABS: Bilirubin, Total 0.3 mg/dL (0.2-1.0)
[2024-08-01 06:19] LABS: Aspartate Aminotransferase 59 U/L (13-40); Blood Urea Nitrogen 71 mg/dL (9-23); Chloride 95 mmol/L (98-107); Glucose 119 mg/dL (74-106); Potassium 3.2 mmol/L (3.5-5.1); Sodium 134 mmol/L (136-145); Total Protein 5.2 g/dL (5.7-8.2)
--- NOTE | 2024-08-01 11:26 | DVHPN2 ---
Progress Note - Dictate Date Seen: Aug 01, 2024 Has the PT tested + for MRSA If YES, has PT been informed?: Yes Medical Necessity Reason Pt with a Central, PICC or Fol: Yes The following are medically ne: Central Line, Tavarez Catheter Reason for tavarez catheter: Strict I&O Subjective Ms. Cagle is a 83 years old female with a history of hypertension, coronary artery disease, heart attack, heart failure, kidney disease, the patient was brought to the [facility] on 07/26/2024 with a chief company of altered mental status, cataract arrest. I have seen and examined the patient, discussed with her nurse, Dr. Mauro Oro and other medical staff, the patient remained intubated, sedated, responsive to painful stimuli, she had light reflexes, doll's eye phenomenon and gag reflexes I have discussed with her daughter and updated the family about the patient was situation, told her daughter the patient is alive, but she may suffer from ischemic brain injury, and she may not have a good prognosis for meaningful recovery. ABG, 07/27/2024: Metabolic acidosis, 07/28/2024: Compensated metabolic acidosis, low oxygen CBC, 07/27/2024, metabolic acidosis, metabolic acidosis WBC/HB/PLT/MCV, 07/27/2024: 20.1/13.8/295/I 105, 07/28/2024: 22.1/13.1/212/102.8 In/CR,//22/1.37 TBI/AST/ALT/AP, 07/27/2024: 0.3/120/23/26, 07/28/2024: 0.2/91/43/53 TG/HDL/LDL/HDL, 07/27/24: 174/153/94/46 Venous Doppler, 08/01/2024: No DVT in the lower extremities CT head, 07/27/2024: 1. Mild chronic ischemic changes without evidence of acute intracranial process. 2. Mild upper cervical spinal canal stenosis. Consider follow-up noncontrast MRI of the cervical spine on an outpatient nonemergent basis once the patient's acute condition has resolved CT head, 07/29/2024: Ventricles are very minimally less prominent in size when compared to the prior exam. No intracranial hemorrhage or extra-axial fluid collections. No subdural hematoma. Stable victorino ventricular patchy white matter hypoattenuation most likely related to small vessel ischemic changes. MRI recommended if clinical symptoms persist or worsen vital signs Vital Sign Date Time Temp Pulse Resp B/P (MAP) Pulse Ox O2 Delivery O2 Flow Rate FiO2 08/01/24 10:45 97.7 106 20 138/53 (81) 99 207.9 121/52 (75) 08/01/24 10:00 30 08/01/24 10:00 Mechanical Ventilator+ Total Intake and Output 07/31/24 07/31/24 08/01/24 15:00 23:00 07:00 Intake Total 216.64 ml 80 ml 250 ml Output Total 500 ml 810 ml Balance 216.64 ml -420 ml -560 ml medications Current Medications Medications Dose Ordered Sig/Yovanny Route Start Time Stop Time Status Last Admin Dose Admin Norepinephrine Bitartrate 250 ml @ 3.75 mls/hr Q24H IV 07/27/24 00:00 07/27/24 23:55 3.75 MLS/HR Midazolam HCl 50 ml @ 1 mls/hr Q24H IV 07/27/24 01:00 07/30/24 11:54 4 MLS/HR Fentanyl Citrate 250 ml @ 2.5 mls/hr Q24H IV 07/27/24 01:00 07/30/24 11:57 12.5 MLS/HR Pantoprazole Sodium 40 mg DAILY IV 07/27/24 10:00 08/01/24 09:28 40 MG Enteral Nutritional Formula 1,000 ml 40ML/HR GT 07/28/24 11:30 Acetaminophen 650 mg Q4HP PRN PO 07/28/24 16:45 07/29/24 06:11 650 MG Piperacillin Sod/ Tazobactam Sod 100 ml @ 25 mls/hr Q12HR IV 07/29/24 22:00 08/01/24 09:30 25 MLS/HR Furosemide 60 mg BID IV 07/31/24 22:00 08/01/24 09:29 60 MG objective The patient is well-nourished and well-developed with no distress. The patient is intubated MENTAL STATUS: Subjective CRANIAL NERVES: Pupils are equal, round and reactive. There are weak corneal reflexes and doll's eyes phenomenon. No signs of facial weakness. There are gagging or coughing reflexes SENSATION: No responses to pain stimuli. MOTOR: Normal tone in the upper and lower extremity. Normal muscle bulk. No fasciculations. No spontaneous movement. REFLEXES: Deep tendon reflexes are symmetrical. No pathological reflexes. CEREBELLAR/COORDINATION: Deferred GAIT/STATION: deferred. laboratory and microbiology Laboratory Tests 08/01/24 04:35 Test 08/01/24 04:35 Range/Units Serum Glucose 119 H 74-106 mg/dL Problem List Cardiopulmonary arrest with prolonged downtime Coma Hypoxic encephalopathy Metabolic encephalopathy Acute respiratory failure Myoclonic in bilateral face (left hand secondary to cardiopulmonary arrest), resolved Assessment/Plan Monitoring Supportive treatment ICU care Follow-up lab test ICU care Stabilize vitals/pressor drip Respiratory support/vent management Oxygen IV antibiotics I will get a 2nd opinion from Dr. Wagner More recommendation per clinical course This medical document was created using an electronic medical record system with [employer] system. Although this document has been carefully reviewed, there may still be some phonetic and typographical errors. These areas are purely typographical due to imperfections of the software programs, and do not reflect any compromise in the patient's medical care Prognosis guarded Dietary Evaluation Review Comments: 1. Continue EN formula Nepro @ goal-rate of 40 ml/hr via OGT 2. Provide minimal free water flushes of 50 ml Q4 (300 ml total) or per MD discretion; adjust PRN 3. Monitor BMP/lytes and replete to WNL/PRN 4. Obtain actual weight measurement as able (wt on file estimated) TF Provision: -> TF at goal to provide 960 ml total volume, 1728 kcal, 78 gm pro, 15 gm fiber, 154 gm CHO, 698 ml H20 (meets 100% est. kcal needs, 100% est. pro needs) Expected Outcomes/Goals: Improved nutritional status Plan discussed with: Daughter, Other Critical Care Time(min): 45 ELSA RESENDEZ MD Aug 01, 2024 11:26
[2024-08-01] MEDS: POTASSIUM CHL 20MEQ/100ML 100 ML IV ONE (11:50)
--- NOTE | 2024-08-01 16:02 | DVHPN2 ---
Progress Note Date Seen: Aug 01, 2024 Has the PT tested + for MRSA If YES, has PT been informed?: Yes Medical Necessity Reason Pt with a Central, PICC or Fol: Yes The following are medically ne: Central Line, Tavarez Catheter Reason for tavarez catheter: Strict I&O Subjective Patient reports: Other (Patient is off sedation not waking up off vasopressors) Review of Systems: Deferred Objective vital signs Vital Sign Date Time Temp Pulse Resp B/P (MAP) Pulse Ox O2 Delivery O2 Flow Rate FiO2 08/01/24 15:45 98.1 113 17 155/61 (92) 98 208.6 145/62 (89) 08/01/24 14:00 Mechanical Ventilator+ 30 30 Total Intake and Output 07/31/24 07/31/24 08/01/24 15:00 23:00 07:00 Intake Total 216.64 ml 80 ml 250 ml Output Total 500 ml 810 ml Balance 216.64 ml -420 ml -560 ml medications Current Medications Medications Dose Ordered Sig/Yovanny Route Start Time Stop Time Status Last Admin Dose Admin Norepinephrine Bitartrate 250 ml @ 3.75 mls/hr Q24H IV 07/27/24 00:00 07/27/24 23:55 3.75 MLS/HR Midazolam HCl 50 ml @ 1 mls/hr Q24H IV 07/27/24 01:00 07/30/24 11:54 4 MLS/HR Fentanyl Citrate 250 ml @ 2.5 mls/hr Q24H IV 07/27/24 01:00 07/30/24 11:57 12.5 MLS/HR Pantoprazole Sodium 40 mg DAILY IV 07/27/24 10:00 08/01/24 09:28 40 MG Enteral Nutritional Formula 1,000 ml 40ML/HR GT 07/28/24 11:30 Acetaminophen 650 mg Q4HP PRN PO 07/28/24 16:45 07/29/24 06:11 650 MG Piperacillin Sod/ Tazobactam Sod 100 ml @ 25 mls/hr Q12HR IV 07/29/24 22:00 08/01/24 09:30 25 MLS/HR Furosemide 60 mg BID IV 07/31/24 22:00 08/01/24 09:29 60 MG Examination: GENERAL:Abnormal, LUNGS:Abnormal, MSK:Abnormal, NEURO:Abnormal laboratory and microbiology Laboratory Tests 08/01/24 04:35 Test 08/01/24 04:35 Range/Units Serum Glucose 119 H 74-106 mg/dL Microbiology Date/Time Source Procedure Growth Status 07/30/24 19:37 Blood Blood Culture - Preliminary NO GROWTH AFTER 24 HOURS OF INCUBATION. Resulted 07/28/24 17:00 Voided Urine Urine Culture - Final Yeast, not Luz Marina albicans Complete 07/27/24 15:58 Nose MRSA Screen - Final Complete 07/27/24 00:00 Sputum Gram Stain - Final Complete 07/27/24 00:00 Respiratory Culture - Final Staphylococcus aureus Complete Problem List/Assessment/Plan Problem List/Assessment/Plan Acute kidney injury likely ATN due to hypotension acute respiratory failure--ventilator-dependent metabolic acidosis elevated troponins CHF EF 20% pneumothorax Questionable hypoxemic encephalopathy recs Lasix IV b.i.d. as ordered K replace p.r.n. We will monitor renal function closely Neuro eval ongoing---- Remains nonoliguric past 24 hours Off of vasopressors Evaluate [employer] needs daily Plan discussed with: Other Dietary Evaluation Review Comments: 1. Continue EN formula Nepro @ goal-rate of 40 ml/hr via OGT 2. Provide minimal free water flushes of 50 ml Q4 (300 ml total) or per MD discretion; adjust PRN 3. Monitor BMP/lytes and replete to WNL/PRN 4. Obtain actual weight measurement as able (wt on file estimated) TF Provision: -> TF at goal to provide 960 ml total volume, 1728 kcal, 78 gm pro, 15 gm fiber, 154 gm CHO, 698 ml H20 (meets 100% est. kcal needs, 100% est. pro needs) Expected Outcomes/Goals: Improved nutritional status TANIKA WHITE MD Aug 01, 2024 16:02
--- NOTE | 2024-08-01 17:55 | DVHPNRES ---
Progress Note Date Seen: Aug 01, 2024 Resident Creating Document: REAGAN VEE RESIDENT Has the PT tested + for MRSA If YES, has PT been informed?: Yes Medical Necessity Reason Pt with a Central, PICC or Fol: Yes The following are medically ne: Central Line, Tavarez Catheter Reason for tavarez catheter: Strict I&O Subjective Review of Systems Patient was examined at bedside, patient continue on mechanical ventilation, not on pressors/sedation. Patient still not moving, no gag reflex. small amount of oral secretions, creamy pink tinged. Right and left erythema under the breast . CXR showed chest tube on placed, flushed with 20 ml NS. WBC improving, Renal function getting worse, nephrology has evaluated the patient today , furosemide increased until 60mg IV BID, bicarb drip stopped, 20 mEQ K+ was given MRI was evaluated by neurology team, the patient remained intubated, family was updated from neurology standpoint regarding goals of care and possible outcome. Chest tube not draining since yesterday night. still on succion -20, no bubbles . flushed with 20 ml ns. Patient reports: Other (intubated) Objective vital signs Vital Sign Date Time Temp Pulse Resp B/P (MAP) Pulse Ox O2 Delivery O2 Flow Rate FiO2 08/01/24 17:30 98.1 90 21 152/56 (88) 99 208.6 133/57 (82) 08/01/24 16:00 30 08/01/24 16:00 Mechanical Ventilator+ Total Intake and Output 07/31/24 07/31/24 08/01/24 14:59 22:59 06:59 Intake Total 283.30 ml 80 ml 250 ml Output Total 500 ml 810 ml Balance 283.30 ml -420 ml -560 ml medications Current Medications Medications Dose Ordered Sig/Yovanny Route Start Time Stop Time Status Last Admin Dose Admin Norepinephrine Bitartrate 250 ml @ 3.75 mls/hr Q24H IV 07/27/24 00:00 07/27/24 23:55 3.75 MLS/HR Midazolam HCl 50 ml @ 1 mls/hr Q24H IV 07/27/24 01:00 07/30/24 11:54 4 MLS/HR Fentanyl Citrate 250 ml @ 2.5 mls/hr Q24H IV 07/27/24 01:00 07/30/24 11:57 12.5 MLS/HR Pantoprazole Sodium 40 mg DAILY IV 07/27/24 10:00 08/01/24 09:28 40 MG Enteral Nutritional Formula 1,000 ml 40ML/HR GT 07/28/24 11:30 Acetaminophen 650 mg Q4HP PRN PO 07/28/24 16:45 07/29/24 06:11 650 MG Piperacillin Sod/ Tazobactam Sod 100 ml @ 25 mls/hr Q12HR IV 07/29/24 22:00 08/01/24 09:30 25 MLS/HR Furosemide 60 mg BID IV 07/31/24 22:00 08/01/24 09:29 60 MG Examination General appearance: Intubated, sedated, unresponsive Intrajugular central line and left femoral arterial line in place Neurological: Pupils are equal, round and reactive. There are weak corneal reflexes and doll's eyes phenomenon. No signs of facial weakness. There are gagging or coughing reflexes rass -4 Cardiovascular: Regular rate and rhythm, no murmurs or gallops. Diminished pulses Pulmonary: Intubated, ventilator dependent Breath sounds diminished in the right. Abdomen: Soft nontender. Hypoactive bowel sounds. Extremities: No edema. no cyanosis Skin: rash below the breast bilaterally laboratory and microbiology Laboratory Tests 08/01/24 04:35 Test 08/01/24 04:35 Range/Units Serum Glucose 119 H 74-106 mg/dL Microbiology Date/Time Source Procedure Growth Status 07/30/24 19:37 Blood Blood Culture - Preliminary NO GROWTH AFTER 24 HOURS OF INCUBATION. Resulted 07/28/24 17:00 Voided Urine Urine Culture - Final Yeast, not Luz Marina albicans Complete 07/27/24 15:58 Nose MRSA Screen - Final Complete 07/27/24 00:00 Sputum Gram Stain - Final Complete 07/27/24 00:00 Respiratory Culture - Final Staphylococcus aureus Complete Problem List/Assessment/Plan Problem List/Assessment/Plan Neurological: #Acute hypoxic encephalopathy due to cardiac arrest #Hypoxic brain injury #S/P Cardiac arrest #Mild upper cervical spinal canal stenosis #?Cerebral edema - CPR for 15 min - Neurology consult - RASS -4 - Not on drips at this time Cardiovascular: #Cardiac/Septic shock #S/P Cardiac arrest: AEP #H/o CAD #Acute on chronic heart failure with reduced ejection fraction 25%, NYHA III-IV likely due to septic shock #Severe global dysfunction #Moderate pulmonary hypertension #Biatrial enlargement Lasix 60 IV BID amio drip,stopped continue IV atb Pulmonary #Acute hypoxic respiratory failure due to cardiac arrest s/p intubation #Multiple right rib fractures # right lateral pneumothorax S/P chest tube placement #Right subcutaneous emphysema due to fractures #Probably aspiration pneumonia Chest tube placement, 0 ml since yesterday Chest x-ray ABG Continue antibiotics GI PPI prophylaxis: Protonix IV Renal #PATTI s/p cardiac arrest #Hypercalcemia #Lactic acidosis Start sodium bicarbonate drip due to acidosis,stopped keep MAP > 65 strict I/O Lasix 60 IV BID Endocrinology A1c 5.4 TSH wnl Lines Left IJV central line 07/27/2024 Left femoral arterial line 07/27/2024 Ventilator settings: Tidal volume: 400 FiO2:30% Ventilatory support mode: AC Ventilator as appropriate rate: 20 beats per minute Peep: 3 cm Case discussed with Dr. Kiser Family updated, goals of care discussed on detail. Time spent on critical care,excluding procedures :81 min DNR Plan discussed with: Daughter My Orders My Orders Orders - REAGAN VEE Procedure Category Date Status Time Code Status CODE 07/31/24 Transmitted 20:09 Chest Portable XY 08/01/24 Resulted 06:00 Abg W/ Co-Ox RT 08/01/24 Logged 04:00 Communication Order ORDERS 08/01/24 Transmitted 09:51 Dietary Evaluation Review Comments: 1. Continue EN formula Nepro @ goal-rate of 40 ml/hr via OGT 2. Provide minimal free water flushes of 50 ml Q4 (300 ml total) or per MD discretion; adjust PRN 3. Monitor BMP/lytes and replete to WNL/PRN 4. Obtain actual weight measurement as able (wt on file estimated) TF Provision: -> TF at goal to provide 960 ml total volume, 1728 kcal, 78 gm pro, 15 gm fiber, 154 gm CHO, 698 ml H20 (meets 100% est. kcal needs, 100% est. pro needs) Expected Outcomes/Goals: Improved nutritional status Date of Service: Aug 01, 2024 Billing Provider: ANITA KISER MD Common Visit Codes: 88939-FNIJCHTW CARE 30-74 MIN, 74397-KERPESXR CARE-EACH +30MIN REAGAN VEE RESIDENT Aug 01, 2024 17:55 ANITA KISER MD Aug 04, 2024 15:30
[2024-08-02] VITALS (102 sets, daily range): BP systolic 117–172; BP diastolic 43–76; PULSE 75–116; RESP 14–29; TEMP 97.2–99; O2SAT 96–100
[2024-08-02 04:42] LABS: Basophils # (auto) 0 10 ^3/uL (0-0.2); Eosinophils # (auto) 0.2 10 ^3/uL (0-0.8); Eosinophils % (auto) 1.8 % (0.0-7.0); Hematocrit 25.7 % (36.0-46.0); Hemoglobin 8.8 g/dL (12.2-16.2); Lymphocytes # (auto) 0.7 10 ^3/uL (0.4-5.4); Lymphocytes % (auto) 6.9 % (10.0-50.0); Mean Corpuscular Hemoglobin 33.2 pg (28.0-32.0); Mean Corpuscular Hgb Conc. 34.1 g/dL (32.0-36.0); Mean Corpuscular Volume 97.4 fL (80.0-100.0); Monocytes # (auto) 0.8 10 ^3/uL (0-1.3); Monocytes % (auto) 7.6 % (0.0-12.0); Neutrophils # (auto) 8.9 10 ^3/uL (1.6-8.6); Neutrophils % (auto) 83.7 % (37.0-80.0); Nucleated Red Blood Cells % 0.3 %; Platelet Count (auto) 216 10^3/uL (140-450); Red Blood Cells 2.64 10^6/uL (4.0-5.20); Red Cell Distribution Width 13.9 % (11.8-14.3); White Blood Cell 10.7 10^3/uL (4.4-10.8)
[2024-08-02 04:58] LABS: Alanine Aminotransferase 17 U/L (7-40); Anion Gap 15 (5-15); BUN/Creatinine Ratio 14.8 (10.0-20.0); Calcium 9.3 mg/dL (8.7-10.4); Carbon Dioxide 25 mmol/L (20-31)
[2024-08-02 04:59] LABS: Bilirubin, Total 0.4 mg/dL (0.2-1.0)
[2024-08-02 05:20] LABS: Chloride 95 mmol/L (98-107); Glucose 125 mg/dL (74-106); Potassium 3.1 mmol/L (3.5-5.1); Sodium 135 mmol/L (136-145)
[2024-08-02 05:21] LABS: Albumin 3.1 g/dL (3.2-4.8); Alkaline Phosphatase 117 U/L (46-116); Aspartate Aminotransferase 45 U/L (13-40); Blood Urea Nitrogen 80 mg/dL (9-23); Total Protein 5.6 g/dL (5.7-8.2)
--- NOTE | 2024-08-02 05:29 | DVH ---
EXAM: XR Chest, 1 View CLINICAL INDICATION: intubated TECHNIQUE: Frontal view of the chest. COMPARISON: XY CHEST PORTABLE on DOS: 08/01/24, XY CHEST PORTABLE on DOS: 07/31/24, XY CHEST PORTABLE on DOS: 07/30/24, XY CHEST XRAY 1 VIEW on DOS: 07/29/24, XY CHEST PORTABLE on DOS: 07/29/24 FINDINGS: LUNGS AND PLEURAL SPACES: Pulmonary venous congestion. HEART: Unremarkable. No cardiomegaly. MEDIASTINUM: Unremarkable. Normal mediastinal contour. BONES/JOINTS: Unremarkable. No acute fracture. TUBES, LINES AND DEVICES: The endotracheal tube (ETT) is in satisfactory position. Enteric tube ti p in the stomach. Stable right-sided pigtail chest tube. Small right pleural effusion. OTHER FINDINGS: . None. ... IMPRESSION: Pulmonary venous congestion.
[2024-08-02] MEDS ORDERED: POTASSIUM CHL 20MEQ/100ML 100 ML IV ONE (06:30)
[2024-08-02 06:32] LABS: Base Excess 2.5 mmol/L (-2.0-3.0)
[2024-08-02] MEDS: POTASSIUM CHL 20MEQ/100ML 100 ML IV SCH (08:58)
--- NOTE | 2024-08-02 09:38 | DVHPN2 ---
Progress Note Date Seen: Aug 02, 2024 Has the PT tested + for MRSA If YES, has PT been informed?: Yes Medical Necessity Reason Pt with a Central, PICC or Fol: Yes The following are medically ne: Central Line, Tavarez Catheter Reason for tavarez catheter: Strict I&O Subjective Review of Systems: RESPIRATORY:Abnormal Other Systems: Patient seen and examined by myself today in follow-up, patient remained intubated on ventilator Objective vital signs Vital Sign Date Time Temp Pulse Resp B/P (MAP) Pulse Ox O2 Delivery O2 Flow Rate FiO2 08/02/24 08:59 141/56 08/02/24 08:07 108 20 99 30 08/02/24 08:00 97.2 207.0 08/02/24 05:46 Mechanical Ventilator+ Total Intake and Output 08/01/24 08/01/24 08/02/24 15:00 23:00 07:00 Intake Total 100 ml 320 ml 393 ml Output Total 725 ml 1000 ml Balance 100 ml -405 ml -607 ml medications Current Medications Medications Dose Ordered Sig/Yovanny Route Start Time Stop Time Status Last Admin Dose Admin Norepinephrine Bitartrate 250 ml @ 3.75 mls/hr Q24H IV 07/27/24 00:00 07/27/24 23:55 3.75 MLS/HR Midazolam HCl 50 ml @ 1 mls/hr Q24H IV 07/27/24 01:00 07/30/24 11:54 4 MLS/HR Fentanyl Citrate 250 ml @ 2.5 mls/hr Q24H IV 07/27/24 01:00 07/30/24 11:57 12.5 MLS/HR Pantoprazole Sodium 40 mg DAILY IV 07/27/24 10:00 08/02/24 08:59 40 MG Enteral Nutritional Formula 1,000 ml 40ML/HR GT 07/28/24 11:30 Acetaminophen 650 mg Q4HP PRN PO 07/28/24 16:45 07/29/24 06:11 650 MG Piperacillin Sod/ Tazobactam Sod 100 ml @ 25 mls/hr Q12HR IV 07/29/24 22:00 08/01/24 22:41 25 MLS/HR Furosemide 60 mg BID IV 07/31/24 22:00 08/02/24 08:59 60 MG Potassium Chloride 100 ml @ 50 mls/hr Q2H IV 08/02/24 06:00 08/02/24 09:59 08/02/24 08:58 50 MLS/HR Examination: LUNGS:Normal, CVS:Normal, MSK:Normal laboratory and microbiology Laboratory Tests 08/02/24 04:25 Test 08/02/24 04:25 Range/Units Serum Glucose 125 H 74-106 mg/dL Microbiology Date/Time Source Procedure Growth Status 07/30/24 19:37 Blood Blood Culture - Preliminary NO GROWTH AFTER 48 HOURS OF INCUBATION. Resulted 07/28/24 17:00 Voided Urine Urine Culture - Final Yeast, not Luz Marina albicans Complete 07/27/24 15:58 Nose MRSA Screen - Final Complete 07/27/24 00:00 Sputum Gram Stain - Final Complete 07/27/24 00:00 Respiratory Culture - Final Staphylococcus aureus Complete Problem List/Assessment/Plan Problem List/Assessment/Plan Acute kidney injury likely ATN due to hypotension acute respiratory failure, patient intubated on ventilator Status post cardiac arrest metabolic acidosis Sepsis CHF EF 25% pneumothorax Hypoxic encephalopathy Hypokalemia Vancomycin toxicity Recommendations Kidney function slightly worsened today Increased urine output DC furosemide Start Bumex 1 mg IV q.day KCL replacement We will monitor renal function closely Neuro eval ongoing---- Discontinue vancomycin if okay with Infectious Disease We will continue to follow up Plan discussed with: Other (Nurse) My Orders My Orders Orders - YULIYA HENDRICKS MD Procedure Category Date Status Time Potassium Chl PHA 08/02/24 In Process 20meq/100ml 06:00 Bumetanide Injection PHA 08/02/24 Verified (Bumex Injection) 10:00 Dietary Evaluation Review Comments: 1. Continue EN formula Nepro @ goal-rate of 40 ml/hr via OGT 2. Provide minimal free water flushes of 50 ml Q4 (300 ml total) or per MD discretion; adjust PRN 3. Monitor BMP/lytes and replete to WNL/PRN 4. Obtain actual weight measurement as able (wt on file estimated) TF Provision: -> TF at goal to provide 960 ml total volume, 1728 kcal, 78 gm pro, 15 gm fiber, 154 gm CHO, 698 ml H20 (meets 100% est. kcal needs, 100% est. pro needs) Expected Outcomes/Goals: Improved nutritional status YULIYA HENDRICKS MD Aug 02, 2024 09:38
[2024-08-02] MEDS ORDERED: hydrALAZINE HCL 20 MG/ML VL IV PRN (13:45)
[2024-08-02] MEDS ORDERED: ONDANSETRON HCL 4 MG/2 ML VIAL IV PRN (17:45)
[2024-08-02] MEDS: LORazepam 2MG/ML-1ML VIAL IV PRN (19:39)
[2024-08-02] MEDS: MORPHINE SULFATE INJ 2 MG/ml SYRG IV PRN (19:40)
--- NOTE | 2024-08-02 19:47 | DVHINCON2 ---
Date of service: Aug 02, 2024 Referring Physician Von Jacobson MD Reason for Consultation Unresponsiveness History of Present Illness The patient is an 83-year-old female seen for evaluation regarding persistent unresponsiveness. The patient was apparently in her usual self on the night of admission when, shortly before midnight, the patient was noted by daughter to be somewhat weak all over, with difficulty ambulating. She then collapsed to the ground, limp, nonresponsive. At some point in time, the patient was observed to be apneic. Paramedics were called, who arrived on the scene about 15 minutes after the patient lost consciousness. No CPR was performed by family, prior to EMS arriving. The patient was then found to be in full cardiopulmonary arrest and CPR was started and continued for the next 15 minutes. The patient was transported to [facility] emergency room, where she was intubated and put on ventilator support. She had remained unresponsive since. Initial head CT scan performed was unremarkable. Sedation was weaned off a few days ago, however, no significant improvement in the patient's overall neurocognitive functioning had been observed. An MRI scan of the brain was performed on July 31, which was interpreted as unremarkable. On review of images, however, there appears to be diffusion restriction diffusely affecting cortex, cerebellar hemispheres, caudate nuclei and putamen in a symmetric fashion indicative of diffuse anoxic injury. Past Medical History Significant for hypertension, coronary artery disease, peripheral neuropathy Family History: Patient reports no known family medical history. Allergies: Coded Allergies: Codeine (Verified Allergy, Severe, 03/22/20) Oxycodone (Verified Allergy, Severe, 03/22/20) Home Meds Active Scripts Methylprednisolone (Medrol Dosepak) 4 Mg Miguelito, 4 MG PO UD, #21 TAB UAD Prov:FORTINO BROWNING MD 12/02/21 Current Medications Current Medications Medications (Trade) Dose Ordered Sig/Yovanny Route PRN Reason Start Time Stop Time Status Last Admin Potassium Chloride 100 ml @ 50 mls/hr Q2H IV 08/02/24 06:00 08/02/24 10:00 DC 08/02/24 12:32 Bumetanide (Bumex Injection) 1 mg DAILY IV 08/03/24 10:00 08/02/24 17:51 DC Hydralazine HCl (Apresoline Injection) 10 mg Q6HP PRN IV SBP>160 08/02/24 13:45 08/02/24 17:51 DC Morphine Sulfate 1 mg Q1HP PRN IV SEVERE PAIN (7-10 PAIN SCALE) 08/02/24 17:45 Lorazepam (Ativan Inj) 1 mg Q1HP PRN IV ANXIETY 08/02/24 17:45 Ondansetron HCl (Zofran) 4 mg Q4HP PRN IV NAUSEA / VOMITING 08/02/24 17:45 Vital Signs Vital Signs Date Time Temp Pulse Resp B/P (MAP) Pulse Ox O2 Delivery O2 Flow Rate FiO2 08/02/24 18:20 86 20 123/48 (73) 98 30 08/02/24 16:45 98.4 209.1 08/02/24 16:00 Mechanical Ventilator+ Physical Exam Mental status: Best response is slight eye-opening to pain, no further more meaningful responses seen. Cranial nerves II through XII: Pupils are 2 to 3 mm sluggishly reactive to light. Doll's eye reflex is present. Corneal reflexes present on the right, absent to the left. Gag reflex is present. No gross facial asymmetry seen. Motor examination: No movements elicited at the arms or legs on pain stimulation. Sensory examination: Only slight eye-opening noted on sternal pressure. Deep tendon reflexes: Absent all over. Toes neutral to plantar stimulation. Cerebellar: Unable to assess. Labs/Diagnostic Data Labs Test 08/02/24 17:28 08/02/24 06:26 08/02/24 04:25 07/30/24 04:30 Range/Units Potassium Level 3.7 3.5-5.1 mmol/L Blood Gas Specimen Type Arterial Blood Gas Sample Site Arterial line Blood Gas Patient Temperature 37.0 Arterial Blood Date Drawn [id number] Arterial Blood pH 7.541 H 7.350-7.450 Arterial Blood Partial Pressure CO2 29.5 L 32.0-45.0 mmHg Arterial Blood Partial Pressure O2 83.7 83.0-108.0 mmHg Arterial Blood HCO3 24.7 21.0-28.0 mmol/L Arterial Blood Oxygen Saturation 95.6 94.0-98.0 % Arterial Blood Base Excess 2.5 -2.0-3.0 mmol/L Arterial Blood Oxyhemoglobin 94.3 94.0-98.0 % Arterial Blood Carboxyhemoglobin 1.1 0.5-1.5 % Arterial Blood Methemoglobin 0.3 0.0-1.5 % Ranulfo Test N/a Blood Gas Total Hemoglobin 9.20 L 12.0-16.0 g/dL Blood Gas Set Respiration Rate 20.0 Blood Gas Modality Vent - ac FiO2 % 30.0 Blood Gas Tidal Volume 400.0 Blood Gas PEEP or CPAP 3.0 White Blood Count 10.7 4.4-10.8 10^3/uL Red Blood Count 2.64 L 4.0-5.20 10^6/uL Hemoglobin 8.8 L 12.2-16.2 g/dL Hematocrit 25.7 L 36.0-46.0 % Mean Corpuscular Volume 97.4 80.0-100.0 fL Mean Corpuscular Hemoglobin 33.2 H 28.0-32.0 pg Mean Corpuscular Hemoglobin Concent 34.1 32.0-36.0 g/dL Red Cell Distribution Width 13.9 11.8-14.3 % Platelet Count 216 140-450 10^3/uL Mean Platelet Volume 7.6 6.9-10.8 fL Neutrophils (%) (Auto) 83.7 H 37.0-80.0 % Lymphocytes (%) (Auto) 6.9 L 10.0-50.0 % Monocytes (%) (Auto) 7.6 0.0-12.0 % Eosinophils (%) (Auto) 1.8 0.0-7.0 % Basophils (%) (Auto) 0.0 0.0-2.0 % Neutrophils # (Auto) 8.9 H 1.6-8.6 10 ^3/uL Lymphocytes # (Auto) 0.7 0.4-5.4 10 ^3/uL Monocytes # (Auto) 0.8 0-1.3 10 ^3/uL Eosinophils # (Auto) 0.2 0-0.8 10 ^3/uL Basophils # (Auto) 0 0-0.2 10 ^3/uL Nucleated Red Blood Cells 0.3 % Sodium Level 135 L 136-145 mmol/L Chloride Level 95 L 98-107 mmol/L Carbon Dioxide Level 25 20-31 mmol/L Anion Gap 15 5-15 Blood Urea Nitrogen 80 *H 9-23 mg/dL Creatinine 5.42 H 0.550-1.02 mg/dL Glomerular Filtration Rate Calc 7 >90 mL/min BUN/Creatinine Ratio 14.8 10.0-20.0 Serum Glucose 125 H 74-106 mg/dL Calcium Level 9.3 8.7-10.4 mg/dL Magnesium Level 2.3 1.6-2.6 mg/dL Total Bilirubin 0.4 0.2-1.0 mg/dL Aspartate Amino Transferase (AST) 45 H 13-40 U/L Alanine Aminotransferase (ALT) 17 7-40 U/L Alkaline Phosphatase 117 H 46-116 U/L Total Protein 5.6 L 5.7-8.2 g/dL Albumin 3.1 L 3.2-4.8 g/dL Random Vancomycin Level 21.9 H 5-10 ug/mL Test 07/28/24 17:00 07/28/24 09:23 07/28/24 05:40 07/27/24 07:46 Range/Units Urine Color Colorless Yellow Urine Clarity Turbid H Clear Urine pH 5.0 5.0-9.0 Urine Specific [place] 1.009 1.001-1.035 Urine Protein Trace H Negative Urine Ketones Negative Negative Urine Blood 2+ H Negative /uL Urine Nitrite Negative Negative Urine Bilirubin Negative Negative Urine Urobilinogen Normal Negative mg/dL Urine Leukocyte Esterase 3+ Negative /uL Urine RBC 30 0 - 4 /hpf Urine WBC Clumps Present None Seen /hpf Urine Microscopic WBC 101 H 0-5 /HPF Urine Squamous Epithelial Cells Few <5 /hpf Urine Amorphous Crystals Few None Seen /hpf Urine Bacteria Few H None Seen /hpf Urine Mucus Few None Seen Urine Yeast (Budding) Moderate None Seen /hpf Urine Glucose Normal Normal mg/dL Urine Opiates Screen Neg NEGATIVE Urine Fentanyl Screen Pos NEGATIVE Urine Barbiturates Screen Neg NEGATIVE Urine Phencyclidine Screen Neg NEGATIVE Urine Amphetamines Screen Neg NEGATIVE Urine Benzodiazepines Screen Pos NEGATIVE Urine Cocaine Screen Neg NEGATIVE Urine Cannabinoids Screen Neg NEGATIVE Prothrombin Time 11.4 9.3-11.8 sec Prothrombin Time INR 1.08 0.9-1.15 Activated Partial Thromboplast Time 33.3 24.5-34.5 SEC Ammonia < 10 L 11-32 umol/L B-Type Natriuretic Peptide 93.08 0-100 pg/mL POC Glucose 157 H 70-106 mg/dl Test 07/27/24 05:43 07/27/24 04:59 07/27/24 02:35 07/27/24 02:00 Range/Units Influenza Type A Antigen Negative Negative Influenza Type B Antigen Negative Negative SARS-CoV-2 Antigen (Rapid) Negative NEGATIVE Differential Total Cells Counted 100.0 100 Neutrophils % (Manual) 79 37.0-80.0 Band Neutrophils % (Manual) 10 Lymphocytes % (Manual) 4 L 10.0-50.0 Monocytes % (Manual) 7 0-12 Eosinophils % (Manual) 0 0-7 Basophils % (Manual) 0 0.0-2.0 Metamyelocytes % (manual) 0 Myelocytes % (Manual) 0 Promyelocytes % (Manual) 0 Blast Cells % (Manual) 0 Reactive Lymphocytes 0 Platelet Estimate Adequate D-Dimer, Quantitative > 35.20 H 0.0-0.49 mg/L FEU Hemoglobin A1c 5.4 <5.7 % A1C Troponin I High Sensitivity 107 *H </=34 ng/L Triglycerides Level 174 H < 150 mg/dL Cholesterol Level 153 < 200 mg/dL LDL Cholesterol 94 < 100 mg/dL HDL Cholesterol 46 40-59 mg/dL Thyroid Stimulating Hormone (TSH) 1.21 0.55-4.78 uIU/mL Blood Gas Critical Value Read Back Yes Blood Gas Notified Whom Md annamarie coy Blood Gas Notified Time [id number] Blood Gas Notified By Test Driller yang cox Lactic Acid Level 3.9 *H 0.4-2.0 mmol/L Test 07/26/24 23:55 Range/Units Lipase 54 H 12-53 U/L Microbiology Date/Time Source Procedure Growth Status 07/30/24 19:37 Blood Blood Culture - Preliminary NO GROWTH AFTER 48 HOURS OF INCUBATION. Resulted 07/28/24 17:00 Voided Urine Urine Culture - Final Yeast, not Luz Marina albicans Complete 07/27/24 15:58 Nose MRSA Screen - Final Complete 07/27/24 00:00 Sputum Gram Stain - Final Complete 07/27/24 00:00 Respiratory Culture - Final Staphylococcus aureus Complete Problems(with codes): (1) Hypoxic ischemic encephalopathy (HIE) (2) Cardiopulmonary arrest with successful resuscitation (3) Acute respiratory failure (4) Shock Plan/Recommendation At this juncture, prognosis for meaningful neurological recovery appears to be poor, and likelihood of eventual persistent vegetative takes state is high, if the patient survives current acute problems. By definition, the patient is not brain- given preservation of brainstem reflexes, up to this time. The above was discussed in detail with the patient's daughter and all questions were answered to her satisfaction. She expresses comprehension of the gravity of the patient's current condition and likely eventual outcome. A total of over 60 minutes of critical care time was spent in the care of this patient, involving direct patient contact, interaction with family, counseling and coordination of care with management team, reviewing pertinent MRI and CT scan PACS images and reports when appropriate, reviewing pertinent laboratory data, excluding any separately reportable procedures. Plan discussed with: Daughter, Other (RN, Dr. Hutson) MIMI WOLF MD Aug 02, 2024 19:47
--- NOTE | 2024-08-02 21:12 | DVHPNRES ---
Progress Note Date Seen: Aug 02, 2024 Resident Creating Document: REAGAN VEE RESIDENT Has the PT tested + for MRSA If YES, has PT been informed?: Yes Medical Necessity Reason Pt with a Central, PICC or Fol: Yes The following are medically ne: Central Line, Tavarez Catheter Reason for tavarez catheter: Strict I&O Subjective Review of Systems Patient examined at bedside, (Neurologist) has evaluated the patient today, we together review the brain images and examined the patient , is agree with prior evaluation made by , he states there appears to be diffusion restriction diffusely affecting cortex, cerebellar hemispheres, caudate nuclei and putamen in a symmetric fashion indicative of diffuse anoxic injury.By definition, the patient is not brain- given preservation of brainstem reflexes, up to this time. In the afternoon the family decided for terminal wean, they expressed understaning and signed the form. All the medications were stopped, and the patient was started on morphine IV , Ativan IV , Ondasentron IV for comfort measures. Until the end of this note,the family was at bedside, having a private time with the patient , we will start with the terminal weaning when they consider appropriate. ROS: unable to obtain based on patient's clinical status. Patient reports: Other (intubated) Objective vital signs Vital Sign Date Time Temp Pulse Resp B/P (MAP) Pulse Ox O2 Delivery O2 Flow Rate FiO2 08/02/24 20:19 106 23 144/66 08/02/24 20:00 100 Nasal Cannula* 3 32 08/02/24 19:45 99.0 210.2 Total Intake and Output 08/01/24 08/01/24 08/02/24 15:00 23:00 07:00 Intake Total 100 ml 320 ml 393 ml Output Total 725 ml 1000 ml Balance 100 ml -405 ml -607 ml medications Current Medications Medications Dose Ordered Sig/Yovanny Route Start Time Stop Time Status Last Admin Dose Admin Morphine Sulfate 1 mg Q1HP PRN IV 08/02/24 17:45 08/02/24 19:40 1 MG Lorazepam 1 mg Q1HP PRN IV 08/02/24 17:45 08/02/24 19:39 1 MG Ondansetron HCl 4 mg Q4HP PRN IV 08/02/24 17:45 Examination: GENERAL:Abnormal, LUNGS:Abnormal, CVS:Abnormal, MSK:Abnormal, NEURO:Abnormal laboratory and microbiology Laboratory Tests 08/02/24 17:28 08/02/24 04:25 Test 08/02/24 04:25 Range/Units Serum Glucose 125 H 74-106 mg/dL Microbiology Date/Time Source Procedure Growth Status 07/30/24 19:37 Blood Blood Culture - Preliminary NO GROWTH AFTER 72 HOURS OF INCUBATION. Resulted 07/28/24 17:00 Voided Urine Urine Culture - Final Yeast, not Luz Marina albicans Complete 07/27/24 15:58 Nose MRSA Screen - Final Complete 07/27/24 00:00 Sputum Gram Stain - Final Complete 07/27/24 00:00 Respiratory Culture - Final Staphylococcus aureus Complete Problem List/Assessment/Plan Problem List/Assessment/Plan Neurological: #Acute hypoxic encephalopathy due to cardiac arrest # Severe Anoxic brain injury #S/P Cardiac arrest #Mild upper cervical spinal canal stenosis #?Cerebral edema -termianl wean Cardiovascular: #Cardiac/Septic shock #S/P Cardiac arrest: PEA #H/o CAD #Acute on chronic heart failure with reduced ejection fraction 25%, NYHA III-IV likely due to septic shock #Severe global dysfunction #Moderate pulmonary hypertension #Biatrial enlargement Pulmonary #Acute hypoxic respiratory failure due to cardiac arrest s/p intubation #Multiple right rib fractures # right lateral pneumothorax S/P chest tube placement #Right subcutaneous emphysema due to fractures #Probably aspiration pneumonia Renal #PATTI s/p cardiac arrest #Hypercalcemia #Lactic acidosis Case discussed with Dr. Shea Family updated, goals of care discussed on detail. Time spent on critical care,excluding procedures :62 min DNR Plan discussed with: Daughter My Orders My Orders Orders - REAGAN VEE RESIDENT Procedure Category Date Status Time Lorazepam 2mg/Ml Inj PHA 08/02/24 In Process (Ativan Inj) 17:45 Ondansetron Hcl PHA 08/02/24 In Process (Zofran) 17:45 DNR MARGARITA 08/02/24 In Process 17:44 Continue Dnr MARGARITA 08/02/24 In Process 17:44 Code Status CODE 08/02/24 Transmitted 17:47 Morphine Sulfate PHA 08/02/24 In Process Injection 17:45 Rt To Terminal Wean Pt ORDERS 08/02/24 Transmitted 19:28 Dietary Evaluation Review Comments: 1. Continue EN formula Nepro @ goal-rate of 40 ml/hr via OGT 2. Provide minimal free water flushes of 50 ml Q4 (300 ml total) or per MD discretion; adjust PRN 3. Monitor BMP/lytes and replete to WNL/PRN 4. Obtain actual weight measurement as able (wt on file estimated) TF Provision: -> TF at goal to provide 960 ml total volume, 1728 kcal, 78 gm pro, 15 gm fiber, 154 gm CHO, 698 ml H20 (meets 100% est. kcal needs, 100% est. pro needs) Expected Outcomes/Goals: Improved nutritional status REAGAN VEE RESIDENT Aug 02, 2024 21:12
[2024-08-03] VITALS (9 sets, daily range): BP systolic 132–163; BP diastolic 59–76; PULSE 64–120; RESP 16–22; TEMP 95.9–99.1; O2SAT 93–100
[2024-08-03] MEDS ORDERED: BUMETANIDE 2.5mg/10ml (0.25 mg/ml) INJ IV SCH (10:00)
--- NOTE | 2024-08-03 20:29 | DVHPN2 ---
Subjective 7.25 pmpt lethargic/no response to noxious stimulii/moans periodically Changes from previous H/P or p: No Changes Eyes: No Pain, No Vision change, No Conjunctivae inflammation, No Eyelid inflammation, No Other, No Redness ENT: No Ear pain, No Ear discharge, No Nose pain, No Nose discharge, No Nose congestion, No Mouth pain, No Mouth swelling, No Throat pain, No Throat swelling, No Other Respiratory: No Cough, No Dry, No Shortness of breath, No SOB with excertion, No Wheezing, No Hemoptysis, No Pleuritic Pain, No Sputum, No Other Gastrointestinal: No Nausea, No Vomiting, No Abdominal Pain, No Diarrhea, No Constipation, No Melena, No Hematochezia, No Other Genitourinary: No Dysuria, No Frequency, No Incontinence, No Hematuria, No Retention, No Other Skin: No Rash, No Lesions, No Jaundice, No Bruising, No Other Objective Vitals Vital Signs Date Time Temp Pulse Resp B/P (MAP) Pulse Ox O2 Delivery O2 Flow Rate FiO2 08/03/24 16:35 98.3 115 16 142/59 (86) 97 98.3 08/03/24 08:00 Nasal Cannula* 3 32 Intake/Output Intake and Output 08/03/24 07:00 Intake Total 315 ml Output Total 1950 ml Balance -1635 ml Intake Oral 15 ml IV Total 300 ml Tube Feeding 0 ml Output Urine Total 1950 ml Chest Tube Drainage Total 0 ml # Bowel Movements 2 General Appearance: Other (pt lethargic/looks rested) Lungs: Other (Bilateral rhonchi) Cardiovascular: Regular rate, Normal S1 Abdomen: Normal bowel sounds, Soft Extremities: No edema Neuro: Other (peerl/no response to call/noxious stimulii/family has decided comfort care/) Medications Current Medications Medications Dose Ordered Sig/Yovanny Route Start Time Stop Time Status Last Admin Dose Admin Morphine Sulfate 1 mg Q1HP PRN IV 08/02/24 17:45 08/03/24 10:15 1 MG Lorazepam 1 mg Q1HP PRN IV 08/02/24 17:45 08/02/24 21:03 1 MG Ondansetron HCl 4 mg Q4HP PRN IV 08/02/24 17:45 Laboratory Results Laboratory Tests 08/02/24 04:25 08/02/24 17:28 Urinalysis Test 07/28/24 17:00 Urine Color Colorless (Yellow) Urine Clarity Turbid (Clear) H Urine pH 5.0 (5.0-9.0) Urine Specific [place] 1.009 (1.001-1.035) Urine Protein Trace (Negative) H Urine Ketones Negative (Negative) Urine Blood 2+ /uL (Negative) H Urine Nitrite Negative (Negative) Urine Bilirubin Negative (Negative) Urine Urobilinogen Normal mg/dL (Negative) Urine Leukocyte Esterase 3+ /uL (Negative) Urine RBC 30 /hpf (0 - 4) Urine WBC Clumps Present /hpf (None Seen) Urine Microscopic WBC 101 /HPF (0-5) H Urine Squamous Epithelial Cells Few /hpf (<5) Urine Amorphous Crystals Few /hpf (None Seen) Urine Bacteria Few /hpf (None Seen) H Urine Mucus Few (None Seen) Urine Yeast (Budding) Moderate /hpf (None Seen) Urine Glucose Normal mg/dL (Normal) Microbiology Microbiology Date/Time Source Procedure Growth Status 07/30/24 19:37 Blood Blood Culture - Preliminary NO GROWTH AFTER 72 HOURS OF INCUBATION. Resulted 07/28/24 17:00 Voided Urine Urine Culture - Final Yeast, not Luz Marina albicans Complete 07/27/24 15:58 Nose MRSA Screen - Final Complete 07/27/24 00:00 Sputum Gram Stain - Final Complete 07/27/24 00:00 Respiratory Culture - Final Staphylococcus aureus Complete Assessment/Plan Assessment/Plan s/p cardiac arrest-07/27/24 with severe anoxic encephalopathy family has decided comfort care to decide on chest tube removal h/o htn per records h/o cad er records goal- keep pt comfortable Plan discussed with: Other Date of Service: Aug 03, 2024 Billing Provider: MITCHELL MCGUIRE MD Common Visit Codes: [id number] INP/OBS CARE(LOW) MITCHELL MCGUIRE MD Aug 03, 2024 20:29
[2024-08-04] VITALS (8 sets, daily range): BP systolic 121–161; BP diastolic 59–77; PULSE 119–134; RESP 14–18; TEMP 97.7–98.9; O2SAT 94–100
--- NOTE | 2024-08-04 18:47 | DVHPN2 ---
Subjective covering for week end-1.20 pm pt lethargic/no response to noxious stimulii/moans periodically Changes from previous H/P or p: Changes (family has made dnr status) Eyes: No Pain, No Vision change, No Conjunctivae inflammation, No Eyelid inflammation, No Other, No Redness ENT: No Ear pain, No Ear discharge, No Nose pain, No Nose discharge, No Nose congestion, No Mouth pain, No Mouth swelling, No Throat pain, No Throat swelling, No Other Respiratory: No Cough, No Dry, No Shortness of breath, No SOB with excertion, No Wheezing, No Hemoptysis, No Pleuritic Pain, No Sputum, No Other Gastrointestinal: No Nausea, No Vomiting, No Abdominal Pain, No Diarrhea, No Constipation, No Melena, No Hematochezia, No Other Genitourinary: No Dysuria, No Frequency, No Incontinence, No Hematuria, No Retention, No Other Skin: No Rash, No Lesions, No Jaundice, No Bruising, No Other Objective Vitals Vital Signs Date Time Temp Pulse Resp B/P (MAP) Pulse Ox O2 Delivery O2 Flow Rate FiO2 08/04/24 17:00 98.0 134 16 145/59 (87) 95 98.0 08/04/24 08:00 Nasal Cannula* 3 32 Intake/Output Intake and Output 08/04/24 07:00 Intake Total 0 ml Output Total 800 ml Balance -800 ml Intake Oral 0 ml Other 0 ml Output Urine Total 800 ml Stool Total 0 ml Chest Tube Drainage Total 0 ml General Appearance: Other Lungs: Other (coarse rhonchii) Cardiovascular: Regular rate, Normal S1 Abdomen: Normal bowel sounds, Soft Extremities: No edema Neuro: Other (pt lethargic/no response to painful stimulii) Medications Current Medications Medications Dose Ordered Sig/Yovanny Route Start Time Stop Time Status Last Admin Dose Admin Morphine Sulfate 1 mg Q1HP PRN IV 08/02/24 17:45 08/04/24 12:21 1 MG Lorazepam 1 mg Q1HP PRN IV 08/02/24 17:45 08/02/24 21:03 1 MG Ondansetron HCl 4 mg Q4HP PRN IV 08/02/24 17:45 Laboratory Results Laboratory Tests 08/02/24 04:25 08/02/24 17:28 Urinalysis Test 07/28/24 17:00 Urine Color Colorless (Yellow) Urine Clarity Turbid (Clear) H Urine pH 5.0 (5.0-9.0) Urine Specific [place] 1.009 (1.001-1.035) Urine Protein Trace (Negative) H Urine Ketones Negative (Negative) Urine Blood 2+ /uL (Negative) H Urine Nitrite Negative (Negative) Urine Bilirubin Negative (Negative) Urine Urobilinogen Normal mg/dL (Negative) Urine Leukocyte Esterase 3+ /uL (Negative) Urine RBC 30 /hpf (0 - 4) Urine WBC Clumps Present /hpf (None Seen) Urine Microscopic WBC 101 /HPF (0-5) H Urine Squamous Epithelial Cells Few /hpf (<5) Urine Amorphous Crystals Few /hpf (None Seen) Urine Bacteria Few /hpf (None Seen) H Urine Mucus Few (None Seen) Urine Yeast (Budding) Moderate /hpf (None Seen) Urine Glucose Normal mg/dL (Normal) Microbiology Microbiology Date/Time Source Procedure Growth Status 07/30/24 19:37 Blood Blood Culture - Preliminary NO GROWTH AFTER 72 HOURS OF INCUBATION. Resulted 07/28/24 17:00 Voided Urine Urine Culture - Final Yeast, not Luz Marina albicans Complete 07/27/24 15:58 Nose MRSA Screen - Final Complete 07/27/24 00:00 Sputum Gram Stain - Final Complete 07/27/24 00:00 Respiratory Culture - Final Staphylococcus aureus Complete Labs and/or images reviewed: Labs reviewed by me, Image(s) reviewed by me Assessment/Plan Assessment/Plan s/p cardiac arrest-07/27/24 with severe anoxic encephalopathy family has decided comfort care to decide on chest tube removal h/o htn per records h/o cad er records dc summary will be done by diony leyva/ goal- keep pt comfortable Plan discussed with: Other Date of Service: Aug 04, 2024 Billing Provider: MITCHELL MCGUIRE MD Common Visit Codes: NOT BILLABLE MITCHELL MCGUIRE MD Aug 04, 2024 18:47
[2024-08-05] VITALS (7 sets, daily range): BP systolic 137–161; BP diastolic 65–77; PULSE 129–140; RESP 17–22; TEMP 92.2–99.2; O2SAT 90–97
--- NOTE | 2024-08-05 16:53 | DVHDSRES ---
Discharge Summary Date of Admission Resident Creating Document: REAGAN VEE RESIDENT Jul 27, 2024 at 04:32 Date of Discharge: Aug 05, 2024 Admitting Diagnosis Cardiac arrest Labs/Diagnostic Data: Laboratory Results Test 08/02/24 17:28 08/02/24 06:26 08/02/24 04:25 07/30/24 04:30 Potassium Level 3.7 mmol/L (3.5-5.1) Blood Gas Specimen Type Arterial Blood Gas Sample Site Arterial line Blood Gas Patient Temperature 37.0 Arterial Blood Date Drawn [id number] Arterial Blood pH 7.541 (7.350-7.450) Arterial Blood Partial Pressure CO2 29.5 mmHg (32.0-45.0) Arterial Blood Partial Pressure O2 83.7 mmHg (83.0-108.0) Arterial Blood HCO3 24.7 mmol/L (21.0-28.0) Arterial Blood Oxygen Saturation 95.6 % (94.0-98.0) Arterial Blood Base Excess 2.5 mmol/L (-2.0-3.0) Arterial Blood Oxyhemoglobin 94.3 % (94.0-98.0) Arterial Blood Carboxyhemoglobin 1.1 % (0.5-1.5) Arterial Blood Methemoglobin 0.3 % (0.0-1.5) Ranulfo Test N/a Blood Gas Total Hemoglobin 9.20 g/dL (12.0-16.0) Blood Gas Set Respiration Rate 20.0 Blood Gas Modality Vent - ac FiO2 % 30.0 Blood Gas Tidal Volume 400.0 Blood Gas PEEP or CPAP 3.0 White Blood Count 10.7 10^3/uL (4.4-10.8) Red Blood Count 2.64 10^6/uL (4.0-5.20) Hemoglobin 8.8 g/dL (12.2-16.2) Hematocrit 25.7 % (36.0-46.0) Mean Corpuscular Volume 97.4 fL (80.0-100.0) Mean Corpuscular Hemoglobin 33.2 pg (28.0-32.0) Mean Corpuscular Hemoglobin Concent 34.1 g/dL (32.0-36.0) Red Cell Distribution Width 13.9 % (11.8-14.3) Platelet Count 216 10^3/uL (140-450) Mean Platelet Volume 7.6 fL (6.9-10.8) Neutrophils (%) (Auto) 83.7 % (37.0-80.0) Lymphocytes (%) (Auto) 6.9 % (10.0-50.0) Monocytes (%) (Auto) 7.6 % (0.0-12.0) Eosinophils (%) (Auto) 1.8 % (0.0-7.0) Basophils (%) (Auto) 0.0 % (0.0-2.0) Neutrophils # (Auto) 8.9 10 ^3/uL (1.6-8.6) Lymphocytes # (Auto) 0.7 10 ^3/uL (0.4-5.4) Monocytes # (Auto) 0.8 10 ^3/uL (0-1.3) Eosinophils # (Auto) 0.2 10 ^3/uL (0-0.8) Basophils # (Auto) 0 10 ^3/uL (0-0.2) Nucleated Red Blood Cells 0.3 % Sodium Level 135 mmol/L (136-145) Chloride Level 95 mmol/L (98-107) Carbon Dioxide Level 25 mmol/L (20-31) Anion Gap 15 (5-15) Blood Urea Nitrogen 80 mg/dL (9-23) Creatinine 5.42 mg/dL (0.550-1.02) Glomerular Filtration Rate Calc 7 mL/min (>90) BUN/Creatinine Ratio 14.8 (10.0-20.0) Serum Glucose 125 mg/dL (74-106) Calcium Level 9.3 mg/dL (8.7-10.4) Magnesium Level 2.3 mg/dL (1.6-2.6) Total Bilirubin 0.4 mg/dL (0.2-1.0) Aspartate Amino Transferase (AST) 45 U/L (13-40) Alanine Aminotransferase (ALT) 17 U/L (7-40) Alkaline Phosphatase 117 U/L (46-116) Total Protein 5.6 g/dL (5.7-8.2) Albumin 3.1 g/dL (3.2-4.8) Random Vancomycin Level 21.9 ug/mL (5-10) Test 07/28/24 17:00 07/28/24 09:23 07/28/24 05:40 07/27/24 07:46 Urine Color Colorless (Yellow) Urine Clarity Turbid (Clear) Urine pH 5.0 (5.0-9.0) Urine Specific [place] 1.009 (1.001-1.035) Urine Protein Trace (Negative) Urine Ketones Negative (Negative) Urine Blood 2+ /uL (Negative) Urine Nitrite Negative (Negative) Urine Bilirubin Negative (Negative) Urine Urobilinogen Normal mg/dL (Negative) Urine Leukocyte Esterase 3+ /uL (Negative) Urine RBC 30 /hpf (0 - 4) Urine WBC Clumps Present /hpf (None Seen) Urine Microscopic WBC 101 /HPF (0-5) Urine Squamous Epithelial Cells Few /hpf (<5) Urine Amorphous Crystals Few /hpf (None Seen) Urine Bacteria Few /hpf (None Seen) Urine Mucus Few (None Seen) Urine Yeast (Budding) Moderate /hpf (None Seen) Urine Glucose Normal mg/dL (Normal) Urine Opiates Screen Neg (NEGATIVE) Urine Fentanyl Screen Pos (NEGATIVE) Urine Barbiturates Screen Neg (NEGATIVE) Urine Phencyclidine Screen Neg (NEGATIVE) Urine Amphetamines Screen Neg (NEGATIVE) Urine Benzodiazepines Screen Pos (NEGATIVE) Urine Cocaine Screen Neg (NEGATIVE) Urine Cannabinoids Screen Neg (NEGATIVE) Prothrombin Time 11.4 sec (9.3-11.8) Prothrombin Time INR 1.08 (0.9-1.15) Activated Partial Thromboplast Time 33.3 SEC (24.5-34.5) Ammonia < 10 umol/L (11-32) B-Type Natriuretic Peptide 93.08 pg/mL (0-100) POC Glucose 157 mg/dl (70-106) Test 07/27/24 05:43 07/27/24 04:59 07/27/24 02:35 07/27/24 02:00 Influenza Type A Antigen Negative (Negative) Influenza Type B Antigen Negative (Negative) SARS-CoV-2 Antigen (Rapid) Negative (NEGATIVE) Differential Total Cells Counted 100.0 (100) Neutrophils % (Manual) 79 (37.0-80.0) Band Neutrophils % (Manual) 10 Lymphocytes % (Manual) 4 (10.0-50.0) Monocytes % (Manual) 7 (0-12) Eosinophils % (Manual) 0 (0-7) Basophils % (Manual) 0 (0.0-2.0) Metamyelocytes % (manual) 0 Myelocytes % (Manual) 0 Promyelocytes % (Manual) 0 Blast Cells % (Manual) 0 Reactive Lymphocytes 0 Platelet Estimate Adequate D-Dimer, Quantitative > 35.20 mg/L FEU (0.0-0.49) Hemoglobin A1c 5.4 % A1C (<5.7) Troponin I High Sensitivity 107 ng/L (</=34) Triglycerides Level 174 mg/dL (< 150) Cholesterol Level 153 mg/dL (< 200) LDL Cholesterol 94 mg/dL (< 100) HDL Cholesterol 46 mg/dL (40-59) Thyroid Stimulating Hormone (TSH) 1.21 uIU/mL (0.55-4.78) Blood Gas Critical Value Read Back Yes Blood Gas Notified Whom Md annamarie coy Blood Gas Notified Time [id number] Blood Gas Notified By Anthropological Linguist yang cox Lactic Acid Level 3.9 mmol/L (0.4-2.0) Test 07/26/24 23:55 Lipase 54 U/L (12-53) Other Laboratory Tests 08/02/24 17:28 08/02/24 04:25 Brief Hx & Hospital Course: 83-year-old female with past medical history of coronary artery disease, heart failure reduced ejection fraction, prior myocardial infarction 2013, hypertension, morbid obesity, neuropathy and degenerative bone disease who was found collapsed at home in the bathroom. Her daughter, the primary historian, reported that the patient was walking to the bathroom when she suddenly called for help and lost consciousness. EMS arrived within 5 minutes, finding the patient unresponsive, pulseless and in asystole. CPR was initiated and the patient received 2 rounds of epinephrine and sodium bicarbonate therefore achieving return of spontaneous circulation after approximately 15 minutes. Large pneumothorax was confirmed by thoracic CT scan and a chest tube was placed. On 08/02 (Neurologist) states there appears to be diffusion restriction diffusely affecting cortex, cerebellar hemispheres, caudate nuclei and putamen in a symmetric fashion indicative of diffuse anoxic injury.By definition, the patient is not brain- given preservation of brainstem reflexes , but anoxic bran injury and its poor prognosis was explained to the family on detail, therfore the family decided for terminal wean, they expressed understaning and signed the form. All the medications were stopped, and the patient was started on morphine IV , Ativan IV , Ondasentron IV for comfort measures. Patiens's family decided for home hospice for which the patient was discharged from the hospital today 08/05/2024. Operations or Procedures [place] [address] Ph: [phone] DIAGNOSTIC IMAGING Diagnostic Imaging Report : [id number] Signed PATIENT: RASTA BRASHER ACCT: [id number] UNIT: [id number] : 1940 LOC: ER ROOM / BED: / AGE / SEX: 83 / F ADM STATUS: REG ER SERVICE ORDERING PHYSICIAN: DAYNA COY MD PROCEDURE(s): CXRP - CHEST PORTABLE REASON: cardiac arrest ORDER NUMBER(s): [id number], ACCESSION NUMBER(s): [id number] CHEST RADIOGRAPH Indication: cardiac arrest Technique: Single frontal view of the chest was obtained COMPARISON: CHEST PORTABLE on DOS: 12/02/21, CXRP on DOS: 12/02/21 FINDINGS: Lines and Tubes: Left IJ central venous catheter projecting over SV Lungs: No pulmonary edema. Elevation of right hemidiaphragm with subsegmental atelectasis at right lung base. Left lung is well inflated and clear. Pleura: No effusion. No pneumothorax. Cardiomediastinal contours: Unremarkable Bones: Unremarkable IMPRESSION: Elevation of right hemidiaphragm with subsegmental atelectasis at right lung base. ATED BY: TRINI BLUE MD DICTATED DATE/TIME: 07/27/24100 SIGNED BY: TRINI BLUE MD SIGNED DATE/TIME: 07/27/24100 CC: [place] [id number] Ph: [phone] DIAGNOSTIC IMAGING Diagnostic Imaging Report : [id number] Signed PATIENT: RASTA BRASHER ACCT: [id number] UNIT: [id number] : 1940 LOC: OVERFLOW ROOM / BED: 1016-ERT / A AGE / SEX: 83 / F ADM STATUS: ADM IN SERVICE ORDERING PHYSICIAN: DAYNA COY MD PROCEDURE(s): HWOCT - HEAD WITHOUT CONTRAST REASON: cardiac arrest ORDER NUMBER(s): [id number], ACCESSION NUMBER(s): [id number] EXAM: CT HEAD WITHOUT CONTRAST HISTORY: cardiac arrest COMPARISON: HEAD WITHOUT CONTRAST on DOS: 03/22/20 TECHNIQUE: Noncontrast axial CT images of the head were performed. Sagittal and coronal reformatted images were obtained. This CT exam was performed using 1 or more of the following dose reduction techniques: Automated exposure control, adjustment of the mA and/or kv according to patient size, or the use of iterative reconstruction techniques. Radiation Dose : Head: CT Dose: CTDI volume is 59.01 mGy. Dose-length product is 1161.07 mGy*cm FINDINGS: There is mild decreased attenuation in the periventricular white matter. No intracranial hemorrhage, mass, midline shift, hydrocephalus, or evidence of acute large vessel infarct. There are postoperative changes of bilateral cataract extraction surgery. The paranasal sinuses are clear. The bilateral mastoid air cells and middle ear spaces are clear. No cranial fracture or scalp edema. The AP dimension of the spinal canal measures 8 mm at the C1 level. IMPRESSION: 1. Mild chronic ischemic changes without evidence of acute intracranial process. 2. Mild upper cervical spinal canal stenosis. Consider follow-up noncontrast MRI of the cervical spine on an outpatient nonemergent basis once the patient's acute condition has resolved. ATED BY: LENIN SILVERIO MD DICTATED DATE/TIME: 07/27/24524 SIGNED BY: LENIN SILVERIO MD SIGNED DATE/TIME: 07/27/24524 CC: [place] [address] Ph: [phone] DIAGNOSTIC IMAGING Diagnostic Imaging Report : [id number] Signed PATIENT: RASTA BRASHER ACCT: [id number] UNIT: [id number] : 1940 LOC: ER ROOM / BED: / AGE / SEX: 83 / F ADM STATUS: REG ER SERVICE 030 ORDERING PHYSICIAN: DAYNA COY MD PROCEDURE(s): CXR1 - CHEST XRAY 1 VIEW REASON: verify og placement ORDER NUMBER(s): [id number], ACCESSION NUMBER(s): [id number] EXAM: XY CHEST XRAY 1 VIEW HISTORY: verify og placement COMPARISON: XY CHEST PORTABLE on DOS: 07/27/24, CHEST PORTABLE on DOS: 12/02/21, CXRP on DOS: 12/02/21 TECHNIQUE: Portable AP view of the chest was performed. FINDINGS: Endotracheal tube is re-identified with its tip 1.2 cm above the juliana. OG tube tip is in the gastric antral region. Left IJ central line is re-identified. There is extensive right chest wall subcutaneous emphysema without visualization pneumothorax. There is a right 6th rib fracture laterally, timing unknown. The heart is not enlarged. There is mild elevation of the right hemidiaphragm, stable. IMPRESSION: 1. Mechanical ventilation with tubes and lines as above. 2. Extensive right chest wall subcutaneous emphysema without visualized pneumothorax. There is a right 6th rib fracture, timing unknown. ATED BY: LENIN SILVERIO MD DICTATED DATE/TIME: 07/27/24412 SIGNED BY: LENIN SILVERIO MD SIGNED DATE/TIME: 07/27/24412 CC: [place] [address] Ph: [phone] DIAGNOSTIC IMAGING Diagnostic Imaging Report : [id number] Signed PATIENT: RASTA BRASHER ACCT: [id number] UNIT: [id number] : 1940 LOC: ER ROOM / BED: / AGE / SEX: 83 / F ADM STATUS: REG ER SERVICE 9 ORDERING PHYSICIAN: DAYNA COY MD PROCEDURE(s): RHUM - R HUMERUS XRAY REASON: r/o dislocation ORDER NUMBER(s): [id number], ACCESSION NUMBER(s): [id number] CLINICAL INDICATION: r/o dislocation TECHNIQUE: XY R HUMERUS XRAY Comparison: None FINDINGS/IMPRESSION: : 1. No acute fracture of the right humerus. 2. Acromioclavicular hypertrophy with high-riding humeral head which abuts the undersurface of the acromion, consistent with significant rotator cuff tendinopathy. 3. Extensive right chest wall subcutaneous emphysema. ATED BY: LENIN SILVERIO MD DICTATED DATE/TIME: 07/27/24417 SIGNED BY: LENIN SILVERIO MD SIGNED DATE/TIME: 07/27/24417 CC: [place] [address] Ph: [phone] DIAGNOSTIC IMAGING Diagnostic Imaging Report : [id number] Signed PATIENT: RASTA BRASHER ACCT: [id number] UNIT: [id number] : 1940 LOC: ER ROOM / BED: / AGE / SEX: 83 / F ADM STATUS: REG ER SERVICE 0310 ORDERING PHYSICIAN: DAYNA COY MD PROCEDURE(s): LHUM - L HUMERUS XRAY REASON: r/o dislocation ORDER NUMBER(s): [id number], ACCESSION NUMBER(s): [id number] CLINICAL INDICATION: r/o dislocation TECHNIQUE: AP and lateral views of the left humerus were performed. XY L HUMERUS XRAY Comparison: None FINDINGS/IMPRESSION: : 1. No acute fracture of the left humerus. 2. Acromioclavicular hypertrophy with high-riding humeral head abutting the undersurface of the acromion and distal clavicle consistent with significant rotator cuff tendinopathy. ATED BY: LENIN SILVERIO MD DICTATED DATE/TIME: 07/27/24405 SIGNED BY: LENIN SILVERIO MD SIGNED DATE/TIME: 07/27/24405 CC: [address] [id number] Ph: [phone] DIAGNOSTIC IMAGING Diagnostic Imaging Report : [id number] Signed PATIENT: RASTA BRASHER ACCT: [id number] UNIT: [id number] : 1940 LOC: ER ROOM / BED: / AGE / SEX: 83 / F ADM STATUS: REG ER SERVICE 0330 ORDERING PHYSICIAN: DAYNA COY MD PROCEDURE(s): CXR1 - CHEST XRAY 1 VIEW REASON: OGT PLACEMENT CONFIRMATION ORDER NUMBER(s): [id number], ACCESSION NUMBER(s): [id number] EXAM: XY CHEST XRAY 1 VIEW HISTORY: OGT PLACEMENT CONFIRMATION COMPARISON: XY CHEST PORTABLE on DOS: 07/27/24, CHEST PORTABLE on DOS: 12/02/21, CXRP on DOS: 12/02/21 TECHNIQUE: Portable AP view of the chest was performed. FINDINGS: Endotracheal tube is re-identified with its tip 1.5 cm above the juliana. OG tube and left IJ central line are in good position. There is extensive right chest wall subcutaneous emphysema without definite visualized right pneumothorax. No new consolidative infiltrates or pulmonary edema. There is mild elevation of the right hemidiaphragm, stable The heart is not enlarged. The central pulmonary arteries may be ectatic. IMPRESSION: 1. Mechanical ventilation with tubes and lines as above. 2. Extensive right chest wall subcutaneous emphysema without visualization pneumothorax or right rib fracture. Recommend short interval follow-up upright chest x-ray to re-evaluate for possible pneumothorax. ATED BY: LENIN SILVERIO MD DICTATED DATE/TIME: 07/27/24409 SIGNED BY: LENIN SILVERIO MD SIGNED DATE/TIME: 07/27/24409 CC: [place] [address] Ph: [phone] DIAGNOSTIC IMAGING Diagnostic Imaging Report : [id number] Signed PATIENT: RASTA BRASHER ACCT: [id number] UNIT: [id number] : 1940 LOC: OVERFLOW ROOM / BED: [address] [place] [address] AGE / SEX: 83 / F ADM STATUS: ADM IN SERVICE 6 ORDERING PHYSICIAN: VIRAJ SERRA PROCEDURE(s): BLDVT - BiLat Lower DVT REASON: rule out dvt ORDER NUMBER(s): [id number], ACCESSION NUMBER(s): [id number] EXAM: US Duplex Bilateral Lower Extremities Veins CLINICAL INDICATION: rule out dvt TECHNIQUE: Real-time duplex ultrasound scan of the bilateral lower extremity veins integrating B-mode two-dimensional vascular structure, Doppler spectral analysis, color flow Doppler imaging and compression. COMPARISON: None FINDINGS: RIGHT DEEP VEINS: Unremarkable. No DVT in the right common femoral, femoral, proximal deep femoral or popliteal veins. The veins demonstrate normal color flow, are normally compressible, with normal phasic flow and/or augmentation response. RIGHT SUPERFICIAL VEINS: Unremarkable. No thrombus in the visualized right great saphenous vein. LEFT DEEP VEINS: Unremarkable. No DVT in the left common femoral, femoral, proximal deep femoral or popliteal veins. The veins demonstrate normal color flow, are normally compressible, with normal phasic flow and/or augmentation response. LEFT SUPERFICIAL VEINS: Unremarkable. No thrombus in the visualized left great saphenous vein. SOFT TISSUES: No acute findings. No popliteal cyst. OTHER FINDINGS: . None. . . .. IMPRESSION: No DVT. ATED BY: GLORIA YARBROUGH MD DICTATED DATE/TIME: 07/27/24845 SIGNED BY: GLORIA YARBROUGH MD SIGNED DATE/TIME: 07/27/24845 CC: [place] [address] Ph: [phone] DIAGNOSTIC IMAGING Diagnostic Imaging Report : [id number] Signed PATIENT: RASTA BRASHER ACCT: [id number] UNIT: [id number] : 1940 LOC: OVERFLOW ROOM / BED: [address] [place] [address] AGE / SEX: 83 / F ADM STATUS: ADM IN SERVICE ORDERING PHYSICIAN: VIRAJ SERRA RESIDENT PROCEDURE(s): BLDVT - BiLat Lower DVT REASON: rule out dvt ORDER NUMBER(s): [id number], ACCESSION NUMBER(s): [id number] EXAM: US Duplex Bilateral Lower Extremities Veins CLINICAL INDICATION: rule out dvt TECHNIQUE: Real-time duplex ultrasound scan of the bilateral lower extremity veins integrating B-mode two-dimensional vascular structure, Doppler spectral analysis, color flow Doppler imaging and compression. COMPARISON: None FINDINGS: RIGHT DEEP VEINS: Unremarkable. No DVT in the right common femoral, femoral, proximal deep femoral or popliteal veins. The veins demonstrate normal color flow, are normally compressible, with normal phasic flow and/or augmentation response. RIGHT SUPERFICIAL VEINS: Unremarkable. No thrombus in the visualized right great saphenous vein. LEFT DEEP VEINS: Unremarkable. No DVT in the left common femoral, femoral, proximal deep femoral or popliteal veins. The veins demonstrate normal color flow, are normally compressible, with normal phasic flow and/or augmentation response. LEFT SUPERFICIAL VEINS: Unremarkable. No thrombus in the visualized left great saphenous vein. SOFT TISSUES: No acute findings. No popliteal cyst. OTHER FINDINGS: . None. . . .. IMPRESSION: No DVT. ATED BY: GLORIA YARBROUGH MD DICTATED DATE/TIME: 07/27/24845 SIGNED BY: GLORIA YARBROUGH MD SIGNED DATE/TIME: 07/27/24845 CC: [place] [address] Ph: [phone] DIAGNOSTIC IMAGING Diagnostic Imaging Report : [id number] Signed PATIENT: RASTA BRASHER ACCT: [id number] UNIT: [id number] : 1940 LOC: OVERFLOW ROOM / BED: [address] [place] [address] AGE / SEX: 83 / F ADM STATUS: ADM IN SERVICE 06 ORDERING PHYSICIAN: ABDOUL SOUSA MD PROCEDURE(s): CXRP - CHEST PORTABLE REASON: vent ORDER NUMBER(s): [id number], ACCESSION NUMBER(s): [id number] CHEST RADIOGRAPH Indication: vent Technique: Single frontal view of the chest was obtained Comparison: XY CHEST XRAY 1 VIEW on DOS: 07/27/24, XY CHEST XRAY 1 VIEW on DOS: 07/27/24, XY CHEST XRAY 1 VIEW on DOS: 07/27/24 IMPRESSION: Heart is stable in size. Support lines and tubes appear similar with endotracheal tube approximately 1.3 cm from the juliana, consider retraction by 1 cm. Subcutaneous emphysema in the right hemithorax with probable small left effusion. Probable small right effusion with bibasilar atelectasis. ATED BY: ARIA FRANCO MD DICTATED DATE/TIME: 07/28/24535 SIGNED BY: ARIA FRANCO MD SIGNED DATE/TIME: 07/28/24535 CC: [place] [id number] Ph: [phone] DIAGNOSTIC IMAGING Diagnostic Imaging Report : [id number] Signed PATIENT: RASTA BRASHER ACCT: [id number] UNIT: [id number] : 1940 LOC: OVERFLOW ROOM / BED: [facility] / A AGE / SEX: 83 / F ADM STATUS: ADM IN SERVICE 06 ORDERING PHYSICIAN: ABDOUL SOUSA MD PROCEDURE(s): CXRP - CHEST PORTABLE REASON: vent ORDER NUMBER(s): [id number], ACCESSION NUMBER(s): [id number] CHEST RADIOGRAPH Indication: vent Technique: Single frontal view of the chest was obtained Comparison: XY CHEST XRAY 1 VIEW on DOS: 07/27/24, XY CHEST XRAY 1 VIEW on DOS: 07/27/24, XY CHEST XRAY 1 VIEW on DOS: 07/27/24 IMPRESSION: Heart is stable in size. Support lines and tubes appear similar with endotracheal tube approximately 1.3 cm from the juliana, consider retraction by 1 cm. Subcutaneous emphysema in the right hemithorax with probable small left effusion. Probable small right effusion with bibasilar atelectasis. ATED BY: ARIA FRANCO MD DICTATED DATE/TIME: 07/28/24535 SIGNED BY: ARIA FRANCO MD SIGNED DATE/TIME: 07/28/24535 CC: [place] [id number] Ph: [phone] DIAGNOSTIC IMAGING Diagnostic Imaging Report : [id number] Signed PATIENT: RASTA BRASHER ACCT: [id number] UNIT: [id number] : 1940 LOC: ICU CENTRL ROOM / BED: [facility] / A AGE / SEX: 83 / F ADM STATUS: ADM IN SERVICE 0908 ORDERING PHYSICIAN: ELSA RESENDEZ MD PROCEDURE(s): MBHL - BRAIN HEAD WO CONTRAST REASON: Coma ORDER NUMBER(s): [id number], ACCESSION NUMBER(s): [id number] PROCEDURE: MRI BRAIN HEAD WO CONTRAST INDICATION: Coma EXAM DATE: 07/31/2024 11:04 AM COMPARISON: None TECHNIQUE: MRI of the brain without intravenous contrast. FINDINGS: Diffusion weighted images of the brain demonstrate no evidence of acute infarction. There is no evidence of acute intracranial hemorrhage, extra-axial collection, mass effect, midline shift, herniation or hydrocephalus. The ventricles, sulci and cisterns appear age appropriate. Mild changes of chronic microvascular ischemic disease. No abnormality on susceptibility weighted imaging. The major vascular flow voids are present. There is opacification of the bilateral mastoid air cells. The surrounding soft tissues and osseous structures are unremarkable. IMPRESSION: 1. No evidence of acute infarction, intracranial hemorrhage, mass effect or hydrocephalus. Mild changes of chronic microvascular ischemic disease. Bilateral mastoid effusions. HS:Y ATED BY: VÍCTOR COWART MD DICTATED DATE/TIME: 07/31/24 1144 SIGNED BY: VÍCTOR COWART MD SIGNED DATE/TIME: 07/31/24 1144 CC: Condition at Discharge: Poor Final Diagnosis/Problems List #Acute hypoxic encephalopathy due to cardiac arrest # Severe Anoxic brain injury #S/P Cardiac arrest #Mild upper cervical spinal canal stenosis #?Cerebral edema #Cardiac/Septic shock #S/P Cardiac arrest: PEA #H/o CAD #Acute on chronic heart failure with reduced ejection fraction 25%, NYHA III-IV likely due to septic shock #Severe global dysfunction #Moderate pulmonary hypertension #Biatrial enlargement #Acute hypoxic respiratory failure due to cardiac arrest s/p intubation #Multiple right rib fractures # right lateral pneumothorax S/P chest tube placement #Right subcutaneous emphysema due to fractures #septick shock likely due to aspiration pneumonia #PATTI s/p cardiac arrest #Hypercalcemia #Lactic acidosis Discharge Disposition: Hospice - Home SNF Discharge Will this Physician continue t: No Discharge Instruct/Medications Diet: See Comment Diet comment: npo Activity: Bed rest Follow Up/Referral: [facility] Medications: per hospice Discharge Statement: "Patient was advised to return to the ER or call 911 if any headaches, dizziness, shortness of breath, chest pain, abdominal pain, bleeding, fevers, or worsening of medical condition. Patient was counseled about treatment plan, medications, possible side effects, patientverbalized understanding. All questions were answered to the best of my ability. This discharge took greater then 30 minutes in planning, reviewing documentation, counseling the patient, and discussing with other team members." ASSESSMENT ASSESSMENT Assessment chf REAGAN VEE RESIDENT Aug 05, 2024 16:53
[2024-08-05] MEDS: GLYCOPYRROLATE 0.2 MG/ML 1ML VIAL IV ONE (18:47)
[2024-08-05] MEDS: SODIUM BICARB 8.4% 50Meq/50ml SYR Vial IV ONE (18:47)
[2024-08-05] MEDS: ROCURONIUM 10MG/ML 10ML VIAL IV ONE (18:47)
== END 2024-08-05 20:00 | disposition hospice, home (50) | DRG 870 ==
LOC: EDSEX 23:54 → ER 23:54 → EDUNIT# 23:54 → OVERFLOW 07-27 04:32 → ICU CENTRL 07-28 15:00 → CENTRAL 08-03 00:10
PROVIDERS: ADMIT Internal Medicine; ATTEND Emergency Medicine
PROC: 5A12012 Performance of Cardiac Output, Single, Manual (ICD-10-PCS; principal; 2024-07-27)
PROC: 5A1955Z Respiratory Ventilation, Greater than 96 Consecutive Hours (ICD-10-PCS; 2024-07-27)
PROC: 02HV33Z Insertion of Infusion Device into Superior Vena Cava, Percutaneous Approach (ICD-10-PCS; 2024-07-27)
PROC: 0BH17EZ Insertion of Endotracheal Airway into Trachea, Via Natural or Artificial Opening (ICD-10-PCS; 2024-07-27)
PROC: 04HY32Z Insertion of Monitoring Device into Lower Artery, Percutaneous Approach (ICD-10-PCS; 2024-07-27)
PROC: 0W9930Z Drainage of Right Pleural Cavity with Drainage Device, Percutaneous Approach (ICD-10-PCS; 2024-07-29)
PROC: 05HF33Z Insertion of Infusion Device into Left Cephalic Vein, Percutaneous Approach (ICD-10-PCS; 2024-07-29)
PROC: B54NZZA Ultrasonography of Left Upper Extremity Veins, Guidance (ICD-10-PCS; 2024-07-29)
DX: A41.9 Sepsis, unspecified organism (principal); G93.41 Metabolic encephalopathy; I46.9 Cardiac arrest, cause unspecified; I50.23 Acute on chronic systolic (congestive) heart failure; J96.21 Acute and chronic respiratory failure with hypoxia; R57.0 Cardiogenic shock; J69.0 Pneumonitis due to inhalation of food and vomit; R65.21 Severe sepsis with septic shock; J18.9 Pneumonia, unspecified organism; I21.4 Non-ST elevation (NSTEMI) myocardial infarction; S22.41XA Multiple fractures of ribs, right side, initial encounter for closed fracture; G93.1 Anoxic brain damage, not elsewhere classified; N17.9 Acute kidney failure, unspecified; E87.20 Acidosis, unspecified; I13.0 Hypertensive heart and chronic kidney disease with heart failure and stage 1 through stage 4 chronic kidney disease, or unspecified chronic kidney disease; J93.9 Pneumothorax, unspecified; Z68.41 Body mass index [BMI] 40.0-44.9, adult; Z20.822 Contact with and (suspected) exposure to COVID-19; E66.9 Obesity, unspecified; Z66 Do not resuscitate; E83.52 Hypercalcemia; X58.XXXA Exposure to other specified factors, initial encounter; M48.02 Spinal stenosis, cervical region; I27.20 Pulmonary hypertension, unspecified; J98.2 Interstitial emphysema; G25.3 Myoclonus; F17.200 Nicotine dependence, unspecified, uncomplicated; N18.9 Chronic kidney disease, unspecified; Z88.5 Allergy status to narcotic agent; Z79.899 Other long term (current) drug therapy; Y93.89 Activity, other specified; Y92.89 Other specified places as the place of occurrence of the external cause; Y99.8 Other external cause status; Z83.3 Family history of diabetes mellitus; Z82.49 Family history of ischemic heart disease and other diseases of the circulatory system
CPT/HCPCS: 31500; 32557; 36415; 36556; 36600; 36620; 70450; 70551; 71045; 71250; 73060; 80048; 80053; 80061; 80202; 80307; 81001; 82140; 82805; 82962; 83036; 83605; 83690; 83735; 83880; 84132; 84443; 84484; 85007; 85025; 85027; 85379; 85610; 85730; 86850; 86900; 86901; 87040; 87070; 87077; 87081; 87086; 87088; 87186; 87205; 87426; 87804; 93005; 93306; 93970; 94002; 94003; 95819; 96365; 96366; 96367; 96372; 96375; 99291; G0378; J2003; J2470; J2543; J3480